=== PATIENT | male | born 1945 | race Caucasian/White ===

== ENCOUNTER 2023-01-13 14:21 | Outpatient (RCR) | payer MEDICARE, SELFPAY | END 2023-01-31 11:49 | disposition home or self-care (01) | LOC: RPT 14:21 | PROVIDERS: ATTENDING PHYSICIAN Neurological Surgery; FAMILY PHYSICIAN Family Medicine | DX: M48.061 Spinal stenosis, lumbar region without neurogenic claudication (principal); M41.86 Other forms of scoliosis, lumbar region | CPT/HCPCS: 97110; 97112 ==

== ENCOUNTER 2023-03-06 13:08 | Emergency (ER) | payer MEDICARE, SELFPAY ==
[2023-03-06 13:11] VITALS: BP 179/76
[2023-03-06 13:12] VITALS: BP 179/76
[2023-03-06 13:12] LABS: Glucose - Point of Care 84 mg/dl (70-99)
[2023-03-06 13:24] LABS: % Basophils 0.5 % (0-2); % Eosinophils 0.4 % (0-6); % Immature Granulocytes 0.9 % (0-0.5); % Lymphocytes 7.5 % (20.5-51.1); % Monocytes 13.3 % (1.7-9.3); % Neutrophils 77.4 % (42.2-75.2); Absolute Basophils 0.1 10^3/uL (0-0.2); Absolute Immature Granulocytes 0.1 10^3/uL (0-0.05); Absolute Lymphocytes 0.7 10^3/uL (1.2-3.4); Absolute Monocytes 1.2 10^3/uL (0.1-0.6); Absolute Neutrophils 7.1 10^3/uL (1.4-6.5); Hematocrit 38.3 % (39.0-52.0); Hemoglobin 13.2 g/dL (13.0-18.0); Mean Corp Hgb Conc. 34.5 g/dL (33.0-37.0); Mean Corpuscular Hgb 34.3 pg (27.0-31.0); Mean Corpuscular Volume 99.5 fL (80.0-94.0); Mean Platelet Volume 8.9 fL (7.4-10.4); Nucleated Red Blood Cells % 0 % (-); Platelet Count 219 10^3/uL (130-400); Red Blood Cell Count 3.85 10^6/uL (4.70-6.10); White Blood Cell Count 9.1 10^3/uL (4.8-10.8)
[2023-03-06 13:29] LABS: Glucose - Point of Care 74 mg/dl (70-99)
[2023-03-06 13:37] LABS: Glucose - Point of Care 54 mg/dl (70-99)
[2023-03-06] MEDS: D10W 1000 IV ×2 (13:39→16:51)
--- NOTE | 2023-03-06 13:39 | ED.GENMED ---
History of Present Illness
General
Chief Complaint: Blood Sugar Problem
Source: patient and spouse
Time Seen by Provider: 03/06/23 13:28
Travel History
Have you had any contact with someone who has COVID-19?: No
Do you have any symptoms of coronavirus? Fever > 100 degrees, chills, cough, shortness of breath, sore throat, loss of taste or smell, muscle aches, or headache?: No
History of Present Illness
History of Present Illness:
77-year-old male presents to the emergency room complaining of hypoglycemia. Patient change the insulin cartridge in his insulin pump. He followed up directions to a T except for the fact that the needle of the insulin pump was attached to his
abdomen and he therefore received what ever volume of insulin is involved in the priming process. Patient went to a pain management doctor's appointment and while there became symptomatic. His continuous glucose monitor would not machine pecan picker his
glucose level. Accu-Cheks performed by paramedics were in the 40s. Patient consumed several high glucose containing items as well as receiving 30 grams of oral glucose solution 25 g of IV dextrose. Patient feels better now than he did when he was
at his doctor's office. prior to this misadventure he was feeling fine.
Past History
Past History
ED Past Medical History: HTN, IDDM, Other (2006: Spinal cord injury, fall during hypoglycemic episode, fracture C spine, paralyzed for short time, had to learn to walk again. Vitrectomy, kidney disease, hepatitis,) and Other (Hernia,)
ED Past Surgical History: Other (hand surgery, c spine fusion, lumbar laminectomy)
Social History
Tobacco: Former smoker
Alcohol: Daily ( wine 1 glass and Martini 1 glass)
Drug: None
Personal:
Living: with family
Phy Exam
Physical Exam
Physical Exam:
General: Awake, Alert, Oriented X3. No acute distress.
Vitals: unremarkable
Head: Atraumatic
Eyes: Pupils equal, EOMI
Throat: Airway intact, no exudates
Neck: Trachea midline
Lungs: Clear and equal b/l
Heart: Regular rate, no murmurs
Abd: Soft, Nontender, No pulsatile mass
Neuro: Nonfocal
Skin: Warm, dry, no rash
Extremities: pulses equal b/l, no edema
Course
Orders/Labs/Results
Orders:
Orders
03/06/23 13:18
CMP [Comprehensive Metabolic Panel] Urgent
Complete Blood Count/With Diff Urgent
03/06/23 14:00
Dextrose 10%/Water 1000 ml [D10w] 1,000 ml IV 200 mls/hr
Abnormal Lab Results
03/06/23 03/06/23 03/06/23
13:18 13:36 14:16
RBC 3.85 L 10^6/uL
(4.70-6.10)
Hct 38.3 L %
(39.0-52.0)
MCV 99.5 H fL
(80.0-94.0)
MCH 34.3 H pg
(27.0-31.0)
Abs Immat Gran (auto) 0.1 H 10^3/uL
(0-0.05)
Absolute Neuts (auto) 7.1 H 10^3/uL
(1.4-6.5)
Absolute Lymphs (auto) 0.7 L 10^3/uL
(1.2-3.4)
Absolute Monos (auto) 1.2 H 10^3/uL
(0.1-0.6)
Immature Gran % 0.9 H %
(0-0.5)
Neutrophils % 77.4 H %
(42.2-75.2)
Lymphocytes % 7.5 L %
(20.5-51.1)
Monocytes % 13.3 H %
(1.7-9.3)
BUN 60 H mg/dl
(9-20)
Creatinine 1.7 H mg/dL
(0.7-1.3)
POC Glucose 54 L* mg/dl 149 H mg/dl
() ()
03/06/23 03/06/23 03/06/23
14:50 15:25 16:10
RBC
Hct
MCV
MCH
Abs Immat Gran (auto)
Absolute Neuts (auto)
Absolute Lymphs (auto)
Absolute Monos (auto)
Immature Gran %
Neutrophils %
Lymphocytes %
Monocytes %
BUN
Creatinine
POC Glucose 51 L* mg/dl 113 H mg/dl 130 H mg/dl
() () ()
03/06/23 13:18
03/06/23 13:18
Vital Signs
Initial and Last Documented VS:
Initial Vital Signs
Temp Pulse Resp BP Pulse Ox
98.4 F 89 13 179/76 100
03/06/23 13:11 03/06/23 13:11 03/06/23 13:11 03/06/23 13:11 03/06/23 13:11
Last Documented Vital Signs
Temp Pulse Resp BP Pulse Ox
98.4 F 107 24 180/101 98
03/06/23 13:11 03/06/23 16:30 03/06/23 16:30 03/06/23 14:00 03/06/23 14:45
MDM/Problems Addressed
MDM/Problems Addressed:
Initial [id number] glucose was 84 followed by 7415 minutes later followed by 54. Dextrose infusion initiated. Next 2 glucose measurements were fine but at 1450 he again was 51. Bolus of D10 given.
1623: Nursing informed me pt feels he should restart his insulin pump because his blood sugar is up to 130mg (1610). Measurement at 1525 was 113. I entered patient room and he was immediately agitated stating ' You have wasted by fucking time'.
I attempted to explain the thought process behind holding his insulin for a period of time and assuring his glucose is stable prior to restarting insulin pump. However prior to finishing my explanation pt cut me off to tell me 'I don't known what's
going on here and neither do you'.....'you don't know a fucking thing about diabetes'. At this point I stepped away from the room and pt wants to sign out AMA.
I was able to discuss the patient's status with his . She explained that the patient had severe DKA in the past resulting in some kidney injury. The patient is very afraid of having another episode such as this so he becomes nervous when his
glucose is elevated. She is on her way back to the emergency room and will monitor him closely at home.
*Critical Care Note
Total Time (30-74mins, 75-104mins- exclusive of procedures): Not Applicable
ED Attending Note
-
Portions of this chart may have been created with voice recognition software.� Occasional wrong word or��sound alike� substitutions may have occurred due to the inherent limitations of voice recognition software.
Discharge Plan
Departure
Presentation/result/management discussed w/ accepting MD/DO: Hospitalist
Condition: Good
Discharge Problem:
Accidental overdose of insulin, Hypoglycemia
Instructions: BLOOD PRESSURE
Prescriptions:
No Action
fluticasone propionate 1 SPRAY spray,suspension
1 spray intranasal DAILY
atorvastatin 10 MG tablet
10 mg PO DAILY
verapamil 120 MG tablet extended release
120 mg PO BID
albuterol sulfate 1 PUFF HFA aerosol inhaler
2 puff inhalation R Q4HPRN PRN (Reason: SOB)
pregabalin 75 MG capsule
75 mg PO HS
Insulin Pump [Patient's Own Insulin Pump:] 1 UNITS Pump.Resvr
0 ea SC .CONTINUOUS
Patient Comments:
PT USES humalog
aspirin 81 MG tablet,chewable
81 mg PO DAILY 30 Days Qty: 30 0RF
furosemide [Lasix] 20 MG tablet
20 mg PO DAILY 30 Days Qty: 30 0RF
irbesartan 300 MG tablet
150 mg PO BID Qty: 0 0RF
tramadol 50 mg tablet
50 mg PO TIDPRN PRN (Reason: severe pains)
Referrals:
Finesse Mccullough DO [Family Provider] -
Activity Restrictions/Additional Instructions:
I would notresume your normal insulin pump protocol until you have eaten dinner. Please return if you have any further episodes of hypoglycemia
Interventions
Interventions:
*Risk Screen - Suicide Last Done: 03/06/23 13:11
*General Assessment Last Done: 03/06/23 13:11
*Neglect/Abuse Screening Last Done: 03/06/23 13:11
ED- Fall Risk Assessment Last Done: 03/06/23 13:11
*ED COVID-19 Vaccine History Last Done: 03/06/23 13:11
ED- Neurological Assessment Last Done: 03/06/23 13:11
[2023-03-06 13:50] LABS: ALT (SGPT) 24 U/L (0-50); AST (SGOT) 22 U/L (17-59); Albumin 3.8 g/dl (3.5-5.0); Alkaline Phosphatase 68 U/L (38-126); Blood Urea Nitrogen 60 mg/dl (9-20); Calcium 9.8 mg/dl (8.4-10.2); Carbon Dioxide 22 mmol/L (22-30); Chloride 103 mmol/L (98-107); Glucose 95 mg/dl (70-99); Potassium 4.1 mmol/L (3.5-5.1); Sodium 135 mmol/L (135-145); Total Bilirubin 0.6 mg/dl (0.2-1.3); Total Protein 6.4 g/dl (6.3-8.2); eGFR 41.01
[2023-03-06 13:53] LABS: Glucose - Point of Care 74 mg/dl (70-99)
[2023-03-06 14:00] VITALS: BP 180/101
[2023-03-06 14:17] LABS: Glucose - Point of Care 149 mg/dl (70-99)
[2023-03-06 14:56] LABS: Glucose - Point of Care 51 mg/dl (70-99)
[2023-03-06 15:26] LABS: Glucose - Point of Care 113 mg/dl (70-99)
[2023-03-06 16:22] LABS: Glucose - Point of Care 130 mg/dl (70-99)
[2023-03-06 16:59] LABS: Glucose - Point of Care 104 mg/dl (70-99)
== END 2023-03-06 17:20 | disposition home or self-care (01) ==
LOC: EMR 13:08
PROVIDERS: Student in an Organized Health Care Education/Training Program; EMERGENCY PHYSICIAN Emergency Medicine; FAMILY PHYSICIAN Family Medicine
DX: T38.3X1A Poisoning by insulin and oral hypoglycemic [antidiabetic] drugs, accidental (unintentional), initial encounter (principal); E11.649 Type 2 diabetes mellitus with hypoglycemia without coma; I10 Essential (primary) hypertension; Z87.891 Personal history of nicotine dependence
CPT/HCPCS: 99284; 96374; 80053; 82962; 85025

== ENCOUNTER → 2023-04-24 14:44 | Outpatient (REF) | payer MEDICARE, SELFPAY | LOC: DHCBC MAIN 14:44 | PROVIDERS: ATTENDING PHYSICIAN Internal Medicine; FAMILY PHYSICIAN Family Medicine | DX: I10 Essential (primary) hypertension (principal); R06.09 Other forms of dyspnea; I44.0 Atrioventricular block, first degree | CPT/HCPCS: 93306 ==

== ENCOUNTER → 2023-10-20 15:51 | Outpatient (REF) | payer MEDICARE, SELFPAY | LOC: HWRCS 15:51 | PROVIDERS: ATTENDING PHYSICIAN Nurse Practitioner Family | DX: R06.02 Shortness of breath (principal) | CPT/HCPCS: 93306 ==

== ENCOUNTER 2024-02-20 15:31 | Inpatient (IN) | payer MEDICARE, SELFPAY ==
[2024-02-20 12:19] VITALS: BMI 24.8
[2024-02-20 12:22] VITALS: BP 122/63
--- NOTE | 2024-02-20 12:31 | ED.GENMED ---
History of Present Illness
<Mich Leiva MD, Resident - Last Filed: 02/20/24 14:33>
General
Chief Complaint: Fainting Sensation
Source: patient and spouse
Time Seen by Provider: 02/20/24 12:31
Nursing documentation reviewed up to this point in time: agreed with
Travel History
Have you traveled to any high risk areas for coronavirus over the past 14 days?: No
Have you had any contact with someone who has COVID-19?: No
Do you have any symptoms of coronavirus? Fever > 100 degrees, chills, cough, shortness of breath, sore throat, loss of taste or smell, muscle aches, or headache?: No
History of Present Illness
History of Present Illness:
78-year-old male with PMH of type 1 diabetes, CKD stage IV, hypertension, hyperlipidemia, prostate cancer who came to the ED today with weakness, fainting sensations and worsening shortness of breath. Patient describes SOB has been worsening for
the past 3 months. This morning, patient was not able to walk and had to present himself in a bench. He follows with Dr. Hess and his last echo reported preserved EF with mild aortic regurgitation. Patient also has a history of recurrent
hypoglycemic episodes and uses an insulin pump. When the EMS arrived, patient's serum glucose level was 182 mg/dL per patient's . He denies any leg swelling, chest pain, fever or chills.
Past History
<Mich Leiva MD, Resident - Last Filed: 02/20/24 14:33>
Past History
ED Past Medical History: HTN, IDDM, Other (2006: Spinal cord injury, fall during hypoglycemic episode, fracture C spine, paralyzed for short time, had to learn to walk again. Vitrectomy, kidney disease, hepatitis,) and Other (Hernia,)
ED Past Surgical History: Other (hand surgery, c spine fusion, lumbar laminectomy)
Social History
Tobacco: Former smoker
Alcohol: Daily ( wine 1 glass and Martini 1 glass)
Drug: None
Personal:
Living: with family
Review of Systems
<Mich Leiva MD, Resident - Last Filed: 02/20/24 14:33>
Review of Systems
All Other Systems: ROS reviewed and negative except as documented in HPI and ROS
Phy Exam
<Mich Leiva MD, Resident - Last Filed: 02/20/24 14:33>
General Physical Exam
General Presentation: well appearing and no apparent distress
General age: appears stated age
General Skin: warm and dry
General Habitus: normal
General Mental: alert
General Hydration: dry mucous membranes
Cardiovascular Exam
Cardiovascular Exam: no edema, no gallop, no murmur, normal peripheral pulses and irregularly irregular
Pulmonary Exam
Pulmonary Exam: lungs clear, no respiratory distress, no rales, no crackles and no rhonchi
Neurological Exam
Neurological Exam: alert, oriented x3 and CN II-XII intact
Skin Exam
Skin Exam: normal color, warm/dry and no rash
Psychiatric Exam
Psychiatric Exam: normal mood/affect
Scores
<Mich Leiva MD, Resident - Last Filed: 02/20/24 14:33>
[id number] Score for Afib Stroke Risk
Age in Years (65=0, 65-74=1, >/=75=2): > or = 75
Sex (Female=+1): Male
Congestive Heart Failure History (Yes=+1): Yes
Hypertension History (Yes=+1): Yes
Stroke/TIA/Thromboembolism History (Yes=+2): No
Vascular Disease History (Yes=+1): No
Diabetes Mellitus (Yes=+1): Yes
Score: 5
Anticoagulation Recommendations: Recommend anticoagulation (as validated in nonvalvular fib)
Course
<Mich Johnnie Leiva MD, Resident - Last Filed: 02/20/24 14:33>
Orders/Labs/Results
Orders:
Orders
02/20/24 12:17
EKG [Electrocardiogram (*1)] Urgent
Reason for Study: Syncope
EKG- Treatment ONCE
02/20/24 12:27
CMP [Comprehensive Metabolic Panel] Urgent
Complete Blood Count/With Diff Urgent
02/20/24 13:13
Sodium Zirconium Cyclosilicate [Lokelma] 10 gram PO NOW STA
02/20/24 13:17
CXR2 [CR Chest - 2 Views ] Stat
Comment:
Reason For Exam: Shortness of breath
02/20/24 13:29
Add On- LAB Urgent
Tests Added?: troponin, bnp
02/20/24 13:33
NT-proBNP Urgent
Troponin I Urgent
Abnormal Lab Results
02/20/24
12:27
RBC 4.03 L 10^6/uL
(4.70-6.10)
MCV 100.2 H fL
(80.0-94.0)
MCH 33.7 H pg
(27.0-31.0)
Abs Immat Gran (auto) 0.1 H 10^3/uL
(0-0.05)
Absolute Neuts (auto) 6.9 H 10^3/uL
(1.4-6.5)
Absolute Monos (auto) 0.8 H 10^3/uL
(0.1-0.6)
Lymphocytes % 13.6 L %
(20.5-51.1)
Potassium 5.7 H mmol/L
(3.5-5.1)
Carbon Dioxide 21 L mmol/L
(22-30)
BUN 57 H mg/dl
(9-20)
Creatinine 2.4 H mg/dL
(0.7-1.3)
Glucose 190 H mg/dl
(70-99)
02/20/24 12:27
02/20/24 12:27
Vital Signs
Initial and Last Documented VS:
Initial Vital Signs
Temp Pulse Resp Pulse Ox
98.2 F 69 15 98
02/20/24 12:19 02/20/24 12:19 02/20/24 12:19 02/20/24 12:19
Last Documented Vital Signs
Temp Pulse Resp BP Pulse Ox
98.2 F 73 8 122/63 90
02/20/24 12:19 02/20/24 12:23 02/20/24 12:23 02/20/24 12:22 02/20/24 12:23
<Jamel Reynoso, DO - Last Filed: 02/20/24 14:20>
Orders/Labs/Results
Orders:
Orders
02/20/24 12:17
EKG [Electrocardiogram (*1)] Urgent
Reason for Study: Syncope
EKG- Treatment ONCE
02/20/24 12:27
CMP [Comprehensive Metabolic Panel] Urgent
Complete Blood Count/With Diff Urgent
02/20/24 13:13
Sodium Zirconium Cyclosilicate [Lokelma] 10 gram PO NOW STA
02/20/24 13:17
CXR2 [CR Chest - 2 Views ] Stat
Comment:
Reason For Exam: Shortness of breath
02/20/24 13:29
Add On- LAB Urgent
Tests Added?: troponin, bnp
02/20/24 13:33
NT-proBNP Urgent
Troponin I Urgent
Abnormal Lab Results
02/20/24
12:27
RBC 4.03 L 10^6/uL
(4.70-6.10)
MCV 100.2 H fL
(80.0-94.0)
MCH 33.7 H pg
(27.0-31.0)
Abs Immat Gran (auto) 0.1 H 10^3/uL
(0-0.05)
Absolute Neuts (auto) 6.9 H 10^3/uL
(1.4-6.5)
Absolute Monos (auto) 0.8 H 10^3/uL
(0.1-0.6)
Lymphocytes % 13.6 L %
(20.5-51.1)
Potassium 5.7 H mmol/L
(3.5-5.1)
Carbon Dioxide 21 L mmol/L
(22-30)
BUN 57 H mg/dl
(9-20)
Creatinine 2.4 H mg/dL
(0.7-1.3)
Glucose 190 H mg/dl
(70-99)
02/20/24 12:27
02/20/24 12:27
Vital Signs
Initial and Last Documented VS:
Initial Vital Signs
Temp Pulse Resp Pulse Ox
98.2 F 69 15 98
02/20/24 12:19 02/20/24 12:19 02/20/24 12:19 02/20/24 12:19
Last Documented Vital Signs
Temp Pulse Resp BP Pulse Ox
98.2 F 73 8 122/63 90
02/20/24 12:19 02/20/24 12:23 02/20/24 12:23 02/20/24 12:22 02/20/24 12:23
<Mich Johnnie Leiva MD, Resident - Last Filed: 02/20/24 14:33>
MDM/Problems Addressed
Differential Diagnosis Includes:
HFpEF, A-fib
MDM/Problems Addressed:
78-year-old male with PMH of type 1 diabetes mellitus, CKD stage IV, hypertension, hyperlipidemia who presented to the emergency department today with worsening shortness of breath. While in the ED, his blood pressure was 122/63, pulse 69,
respiratory 15, he is afebrile and saturating at 98% on room air. His troponin was normal, with a proBNP of 260. His BMP showed potassium level of 5.7, creatinine 2.4 which is around his baseline, and serum glucose of 190.
Chronic conditions affecting care: DM
<Mich Leiva MD, Resident - Last Filed: 02/20/24 14:33>
*Critical Care Note
Total Time (30-74mins, 75-104mins- exclusive of procedures): Not Applicable
<Mich Leiva MD, Resident - Last Filed: 02/20/24 14:33>
Update Note
Update Note:
His EKG was remarkable for new onset A-fib with complex progression pacemaker. A-fib is new and not seen on previous EKG done on 06/08/2021.
Give Lokelma for hyperkalemia.
[id number] score 5
Will get a CXR, and admit patient to the hospitalist service for new onset A-fib, ED on CKD stage IV, and HFpEF.
Discussed with admitting hospitalist team.
ED Attending Note
<Mich Leiva MD, Resident - Last Filed: 02/20/24 14:33>
-
Portions of this chart may have been created with voice recognition software.� Occasional wrong word or��sound alike� substitutions may have occurred due to the inherent limitations of voice recognition software.
<Jamel Reynoso, - Last Filed: 02/20/24 14:20>
ED Attending Note
Patient seen and examined by attending physician: Yes
I performed a history and physical exam of patient and discussed management with resident, I reviewed resident's note and agree with documented findings and plan of care.: Yes
ED Attending Note:
I have reviewed and agree with history treatment plan by Mich Leiva MD. My exam revealed 78-year-old male no acute distress, irregular heart beat. Patient with new onset atrial fibrillation, acute renal failure and hyperkalemia. Admit to
hospitalist.
Discharge Plan
Departure
Patient Disposition: Admit
Date of Disposition: 02/20/24
Time of Disposition:
Presentation/result/management discussed w/ accepting MD/DO: Hospitalist
Patient with high blood pressure during this ER visit?: No
Condition: Fair
Covid-19: Not Applicable
Discharge Problem:
Type 1 diabetes mellitus with nephropathy, Hyperkalemia, Chronic kidney disease (CKD), stage IV (severe), A-fib, (HFpEF) heart failure with preserved ejection fraction
Prescriptions:
No Action
fluticasone propionate 1 SPRAY spray,suspension
1 spray intranasal DAILY
atorvastatin 10 MG tablet
10 mg PO DAILY
verapamil 120 MG tablet extended release
120 mg PO BID
albuterol sulfate 1 PUFF HFA aerosol inhaler
2 puff inhalation R Q4HPRN PRN (Reason: SOB)
pregabalin 75 MG capsule
75 mg PO HS
Insulin Pump [Patient's Own Insulin Pump:] 1 UNITS Pump.Resvr
0 ea SC .CONTINUOUS
Patient Comments:
PT USES humalog
aspirin 81 MG tablet,chewable
81 mg PO DAILY 30 Days Qty: 30 0RF
furosemide [Lasix] 20 MG tablet
20 mg PO DAILY 30 Days Qty: 30 0RF
irbesartan 300 MG tablet
150 mg PO BID Qty: 0 0RF
tramadol 50 mg tablet
50 mg PO TIDPRN PRN (Reason: severe pains)
Referrals:
Finesse Mccullough DO [Family Provider] -
Interventions
Interventions:
*Risk Screen - Suicide Last Done: 02/20/24 12:42
*General Assessment Last Done: 02/20/24 12:19
*Neglect/Abuse Screening Last Done: 02/20/24 12:19
ED- Fall Risk Assessment Last Done: 02/20/24 12:42
*ED COVID-19 Vaccine History Last Done: 02/20/24 12:19
ED- Cardiac Assessment Last Done: 02/20/24 12:42
ED- Neurological Assessment Last Done: 02/20/24 12:42
Discharge Date and Time
Print Language: GREEK
[2024-02-20 12:45] LABS: % Basophils 0.7 % (0-2); % Eosinophils 1.8 % (0-6); % Immature Granulocytes 0.5 % (0-0.5); % Lymphocytes 13.6 % (20.5-51.1); % Monocytes 8.5 % (1.7-9.3); % Neutrophils 74.9 % (42.2-75.2); Absolute Basophils 0.1 10^3/uL (0-0.2); Absolute Eosinophils 0.2 10^3/uL (0-0.7); Absolute Immature Granulocytes 0.1 10^3/uL (0-0.05); Absolute Lymphocytes 1.3 10^3/uL (1.2-3.4); Absolute Monocytes 0.8 10^3/uL (0.1-0.6); Absolute Neutrophils 6.9 10^3/uL (1.4-6.5); Hematocrit 40.4 % (39.0-52.0); Hemoglobin 13.6 g/dL (13.0-18.0); Mean Corp Hgb Conc. 33.7 g/dL (33.0-37.0); Mean Corpuscular Hgb 33.7 pg (27.0-31.0); Mean Corpuscular Volume 100.2 fL (80.0-94.0); Mean Platelet Volume 9.3 fL (7.4-10.4); Nucleated Red Blood Cells % 0 % (-); Platelet Count 213 10^3/uL (130-400); Red Blood Cell Count 4.03 10^6/uL (4.70-6.10); Red Cell Dist. Width 13.3 % (11.5-14.5); White Blood Cell Count 9.2 10^3/uL (4.8-10.8)
[2024-02-20 12:57] LABS: ALT (SGPT) 19 U/L (0-50); AST (SGOT) 23 U/L (17-59); Albumin 4.7 g/dl (3.5-5.0); Alkaline Phosphatase 92 U/L (38-126); Blood Urea Nitrogen 57 mg/dl (9-20); Calcium 10.2 mg/dl (8.4-10.2); Carbon Dioxide 21 mmol/L (22-30); Chloride 98 mmol/L (98-107); Estimated Creatinine Clearance 25 ml/min; Glucose 190 mg/dl (70-99); Potassium 5.7 mmol/L (3.5-5.1); Sodium 137 mmol/L (135-145); Total Bilirubin 0.8 mg/dl (0.2-1.3); Total Protein 7.2 g/dl (6.3-8.2); eGFR 26.94
[2024-02-20 13:00] VITALS: BP 116/73
[2024-02-20] MEDS: LOKELMA 10 GRAM PO (13:47)
[2024-02-20 14:07] LABS: NT-proBNP 260 pg/ml; Troponin I < 0.012 ng/ml
--- NOTE | 2024-02-20 14:48 | HPS.HSE ---
Family Physician
-
Family Physician: Finesse Mccullough
Chief Complaint
-
Shortness of Breath and Episode of Rigidity
History of Present Illness
Patient is a 78 y/o male past medical history of type I diabetes mellitus, chronic HFpEF, CKD IV, hypertension and spinal stenosis who presents with shortness of breath and an unresponsive episode earlier today. Additional history is obtained from
patient's at the bedside. Patient notes he has been feeling short of breath for months, but notes it has been getting worse recently. Today patient got a shower than had to spend a long time recovering due to the shortness of breath. His
scheduled him an appointment with his PCP for later today due to the shortness of breath. Later in the morning patient was sitting on a bench. His heard him moan and when she went in to the room he appeared very rigid which lasted a few
seconds, followed by a second episode that lasted a few seconds. Patient was not as responsive during the event but did not appear confused afterwards. notes he complained about cramping in his hands yesterday which was very usual. Patient
denies any cough, chest pains, palpitations or lower extremity edema. He denies prior history of seizure.
Medical History
Past Medical History
Past Medical History: Reports Other
Additional Past Medical History:
Diabetes Mellitus, Type I
Nonobstructive Coronary Artery Disease
Chronic HFpEF
CKD Stage IV
Essential Hypertension
Hyperlipidemia
Spinal Stenosis
Peripheral Neuropathy
Prostate Cancer
Past Surgical History: Reports Other
Additional Past Surgical History:
C3-C4 Spinal Fusion
L1-L5 Laminectomy
Spinal Stimulator
Prostatectomy
Social History
Tobacco: Former Smoker
Alcohol: Occasional
Family History
Family History: Not pertinent
Allergies / Home Medications
Allergies reflects when Allergies were last updated in [employer]
Home Medications with original date entered in [employer]
Allergy/Medication List:
Allergies
Allergy/AdvReac Type Severity Reaction Status Date / Time
NANCY Inhibitors Allergy Angioedema Verified 06/08/21 17:24
bee pollen Allergy swelling, Verified 08/02/21 16:06
anaphylaxis
bee venom protein (honey bee) Allergy swelling, Verified 08/02/21 16:06
anaphylaxis
ciprofloxacin Allergy Hives Verified 06/08/21 17:24
naproxen [From Aleve] Allergy d/t kidney Verified 06/08/21 17:24
disease
Penicillins Allergy Anaphylaxis; Verified 06/08/21 17:24
tolerated
cefepime &
meropenem
Home Medications
atorvastatin 10 mg tablet 10 mg PO DAILY High cholesterol 01/18/18
Insulin Pump [Patient's Own Insulin Pump:] 0 ea SC .CONTINUOUS Diabetes 06/08/21
albuterol sulfate 90 mcg/actuation aerosol inhaler 2 puff inhalation R Q4HPRN PRN SOB 06/08/21
aspirin 81 mg chewable tablet 81 mg PO DAILY 30 days #30 tabs 06/10/21
irbesartan 300 mg tablet 150 mg (1/2 x 300 mg) PO BID Blood pressure ##0 06/10/21
tramadol 50 mg tablet 50 mg PO TIDPRN PRN severe pains 03/06/23
duloxetine 20 mg capsule,delayed release (Cymbalta) 20 mg PO DAILY 02/20/24
empagliflozin 10 mg tablet (Jardiance) 10 mg PO DAILY 02/20/24
furosemide 20 mg tablet (Lasix) 40 mg PO BID 02/20/24
verapamil 120 mg tablet,extended release 120 mg PO BID 02/20/24
Review of Systems
-
A 12 point ROS was completed and negative except as noted: Yes
Constitutional: Denies Fever or Chills
Respiratory: Reports Trouble Breathing; Denies Cough
Cardiac: Denies Chest Pain or Palpitations
Neurological: Denies Headache or Weakness
Physical Exam
Vital Signs
Vital Signs
Temp Pulse Resp BP Pulse Ox
98.2 F 73 8 122/63 90
02/20/24 12:19 02/20/24 12:23 02/20/24 12:23 02/20/24 12:22 02/20/24 12:23
Physical Exam
General: Comfortable and Conversant
HEENT: Anicteric and Moist mucous membranes
Respiratory: Clear and Non Labored Respirations
Cardiac: S1/S2 and Irregular Rhythm; No Tachycardia
GI: Soft and Non Tender
Rectal: Deferred by Provider
Musculoskeletal: No Clubbing, No Cyanosis and No Edema
Skin: Warm and Dry
Neuro: Awake, Alert, Oriented and Nonfocal/grossly intact
Psych: Calm
Laboratory Results
-
02/20/24 12:27
02/20/24 12:27
Laboratory Results
Total Bilirubin 0.8 mg/dl (0.2-1.3) 02/20/24 12:27
AST 23 U/L (17-59) 02/20/24 12:27
ALT 19 U/L (0-50) 02/20/24 12:27
Alkaline Phosphatase 92 U/L (38-126) 02/20/24 12:27
Troponin I < 0.012 ng/ml 02/20/24 13:33
Data Reviewed
-
Lab Data: Labs Reviewed by me
Impression/Plan
-
Episode of Rigidity, most likely related to Hyperkalemia
-Check Head CT to evaluate for possible stroke as cause given high risk in setting of a-fib - Patient is unable to have MRI due to spinal stimulator
-Monitor on Telemetry
-Monitor for recurrent episodes
Acute Hyperkalemia
-Patient given Lokelma in ED
-Hold irbesartan
-Recheck potassium later this evening
Atrial Fibrillation, new diagnosis - Currently rate controlled
-Consult Cardiology
-Hold on starting anticoagulation pending Head CT
-Continue verapamil for rate control
Chronic HFpEF - Appears well compensated
-Continue Lasix, and Jardiance
-Monitor Is&Os and Daily Weights
Nonobstructive Coronary Artery Disease
-Continue aspirin
Diabetes Mellitus, Type I
-Continue insulin pump
-Monitor sugars
CKD Stage IV
-Patient's notes most recent blood work at [facility] Cr was 2.4
-Continue to monitor creatinine
Essential Hypertension
-Irbesartan on hold due to hyperkalemia
-Continue verapamil
Hyperlipidemia
-Continue atorvastatin
Spinal Stenosis s/p Spinal Stimulator / Peripheral Neuropathy
-Continue Cymbalta
DVT proph: SCDs
Code Status: Full Code
--- NOTE | 2024-02-20 15:11 | W.PN.UPDATE ---
Update Note
Progress Note Update
This is an addendum to the H&P written by Nallely Norton on 02/20/2024. Patient seen and examined independently with PA.
78-year-old male past medical history of type 1 diabetes on insulin pump, diabetic neuropathy, CKD 4, CAD, HFpEF, hypertension, hyperlipidemia, prostate cancer, spinal cord injury of cervical spine, GERD, presenting with episode of body stiffness,
with diminished consciousness although he did not pass out. He is also been increasingly more short of breath over the past week. No edema. No recent hypoglycemia.
EKG shows new onset atrial fibrillation.
Labs show creatinine of 2.4, potassium of 5.7. Cardiac BNP of 260. Chest x-ray appears unremarkable, report pending.
Unclear cause of the episode of body stiffness diminished consciousness. Does not definitively seem like a seizure. He did have some muscle cramping in his hands so perhaps this is due to hyperkalemia. Will check CT head. He has thoracic spinal
stimulator so unlikely that this is MRI brain compatible.
Patient with chronic symptomatic new onset atrial fibrillation with controlled heart rate.
Patient given Lokelma for hyperkalemia. Hold irbesartan. Patient with [id number] score of 6. Cardiology consulted.
Creatinine has been stable over several years.
--- NOTE | 2024-02-20 16:41 | CON.CAR ---
Consultation
Consultation Request
Date/Time Consultation Requested: 02/20/24 15:00
Date/Time Consultation Performed: 02/20/24 16:30
Requesting Provider: RADHA Arreola
Performing Provider: Ja Devine MD
Reason for Consultation: afib
Medical History
-
Chief Complaint: atrial fibrillation
History of Present Illness:
78 yo male (known to Dr. Hess) with PMH of mild AR, HTN, hyperlipidemia, 1st degree AVB, chronic HFPEF, DM, CKD3b, spinal cord injury s/p stimulator�presents for shortness of breath and syncopal episode. He reports that for the past 3 weeks he has
been getting progressively short of breath. Today after getting out of the shower he felt profoundly fatigued. He was walking downstairs to get a cup of coffee when he collapsed onto a bench and was nonresponsive according to his . She called
EMS and when they arrived his blood pressure was 72/52. It improved on the way to the hospital and he now feels better. In the ER he was noted to be in rate controlled atrial fibrillation which is new for him. He has since spontaneously converted
to sinus rhythm. He is currently taking Lasix 40 mg every other day. He weighs himself daily at home and today was 163 pounds which is around his dry weight.
Past Medical History
Past Medical History: CHF, HTN, Hypercholesterolemia, IDDM, Renal Failure and Valvular Disease (Mild aortic regurgitation)
Social History
Tobacco: Non-Smoker
Family History
Family History: Reviewed & Not Pertinent
Allergies / Home Medications
Allergy/AdvReac Type Severity Reaction Status Date / Time
NANCY Inhibitors Allergy Angioedema Verified 06/08/21 17:24
bee pollen Allergy swelling, Verified 08/02/21 16:06
anaphylaxis
bee venom protein (honey bee) Allergy swelling, Verified 08/02/21 16:06
anaphylaxis
ciprofloxacin Allergy Hives Verified 06/08/21 17:24
naproxen [From Aleve] Allergy d/t kidney Verified 06/08/21 17:24
disease
Penicillins Allergy Anaphylaxis; Verified 06/08/21 17:24
tolerated
cefepime &
meropenem
�Medication �Instructions �Recorded �Confirmed �Type
atorvastatin 10 mg tablet 10 mg PO DAILY High cholesterol 01/18/18 02/20/24 History
Insulin Pump [Patient's Own 0 ea SC .CONTINUOUS Diabetes 06/08/21 02/20/24 History
Insulin Pump:]
albuterol sulfate 90 mcg/actuation 2 puff inhalation R Q4HPRN PRN SOB 06/08/21 02/20/24 History
aerosol inhaler
aspirin 81 mg chewable tablet 81 mg PO DAILY 30 days #30 tabs 06/10/21 02/20/24 Rx
irbesartan 300 mg tablet 150 mg (1/2 x 300 mg) PO BID Blood 06/10/21 02/20/24 Rx
pressure ##0
tramadol 50 mg tablet 50 mg PO TIDPRN PRN severe pains 03/06/23 02/20/24 History
duloxetine 20 mg capsule,delayed 20 mg PO DAILY 02/20/24 02/20/24 History
release (Cymbalta)
empagliflozin 10 mg tablet 10 mg PO DAILY 02/20/24 02/20/24 History
(Jardiance)
furosemide 20 mg tablet (Lasix) 40 mg PO BID 02/20/24 02/20/24 History
verapamil 120 mg tablet,extended 120 mg PO BID 02/20/24 02/20/24 History
release
Review of Systems
-
All other systems: Negative unless noted
Physical Exam
Vital Signs
Temp Pulse Resp BP Pulse Ox
98.2 F 86 22 116/73 99
02/20/24 12:19 02/20/24 16:30 02/20/24 16:30 02/20/24 13:00 02/20/24 16:30
Lab Results
02/20/24 12:27
Troponin I < 0.012 ng/ml 02/20/24 13:33
Zac-U-Yaisfowynbg Pept 260 pg/ml 02/20/24 13:33
Physical Exam
General: Well Developed and Well Nourished
Respiratory: Clear and Non Labored Respirations; Negative Crackles
Cardiac: S1/S2 and Regular Rhythm; Negative Murmur, Rub or Peripheral Edema
Neuro: AO x 3
Impression / Plan
-
78 yo male (known to Dr. Hess) with PMH of mild AR, HTN, hyperlipidemia, 1st degree AVB, chronic HFPEF, DM, CKD3b, spinal cord injury s/p stimulator�presents for shortness of breath and syncopal episode, found to have new paroxysmal atrial
fibrillation.
Paroxysmal atrial fibrillation
-New on admission. Now back in sinus rhythm after spontaneous conversion. No medications administered.
-[id number] 5
-Start apixaban 5 mg twice daily for anticoagulation. Will ask case management to matthews.
-No indication for rate/rhythm control at this time as he is back in sinus rhythm and was rate controlled even in atrial fibrillation. Can consider rhythm control strategy if A-fib recurs.
Shortness of breath
-Unclear etiology. He does not appear to be in a significant HFpEF exacerbation as he is at his dry weight, examines euvolemic, and NT proBNP is normal.
-Echocardiogram tomorrow
-Consider ischemic evaluation as he is a type I diabetic and is at high risk for CAD
Chronic HFpEF
-Appears euvolemic and at dry weight
-Continue p.o. Lasix 40 mg every other day and SGLT2 inhibitor
Hypertension
-Continue home regimen with irbesartan and verapamil
Hyperlipidemia: Continue atorvastatin
Type 1 diabetes: Management per primary team
Data Reviewed
-
EKG: Tracing Personally Visualized and interpreted, Discussed with Physician and Discussed with Patient
Radiology: Image Personally Visualized and interpreted, Discussed with Physician and Discussed with Patient
Medical Tests (Nuc Med, Echo etc): Report Reviewed by me
Labs: Labs Reviewed by me
Old Records: Reviewed
[2024-02-20 20:43] VITALS: BP 179/86
[2024-02-20] MEDS: CALAN EXTENDED RELEASE 120 MG PO (21:12)
[2024-02-20] MEDS: ELIQUIS 5 MG PO (21:12)
[2024-02-20 21:31] LABS: Glucose - Point of Care 127 mg/dl (70-99)
[2024-02-20 22:01] VITALS: BMI 24.7
[2024-02-20 22:29] LABS: Potassium 3.9 mmol/L (3.5-5.1)
[2024-02-21 00:23] VITALS: BP 158/70
[2024-02-21 03:30] VITALS: BP 153/61
[2024-02-21 06:24] VITALS: BMI 24.8
--- NOTE | 2024-02-21 06:30 | PTCARENOTE ---
Pt admitted from ED, AAOx3. No c/o pain. Pt afebrile, VSS. Pt arrived with pt's own insulin pump. Pt oriented to room. SCDs in place. Call castellanos within reach and bed in lowest position. Discussed plan with patient. Repeat potassium collected,
per MD order.
[2024-02-21 06:46] LABS: Hematocrit 37.2 % (39.0-52.0); Hemoglobin 12.6 g/dL (13.0-18.0); Mean Corp Hgb Conc. 33.9 g/dL (33.0-37.0); Mean Corpuscular Hgb 33.7 pg (27.0-31.0); Mean Corpuscular Volume 99.5 fL (80.0-94.0); Mean Platelet Volume 9.6 fL (7.4-10.4); Platelet Count 214 10^3/uL (130-400); Red Blood Cell Count 3.74 10^6/uL (4.70-6.10); Red Cell Dist. Width 13.4 % (11.5-14.5); White Blood Cell Count 5.6 10^3/uL (4.8-10.8)
[2024-02-21 06:58] LABS: Blood Urea Nitrogen 59 mg/dl (9-20); Calcium 9.6 mg/dl (8.4-10.2); Carbon Dioxide 28 mmol/L (22-30); Chloride 97 mmol/L (98-107); Estimated Creatinine Clearance 26 ml/min; Glucose 120 mg/dl (70-99); Potassium 4.3 mmol/L (3.5-5.1); Sodium 136 mmol/L (135-145); eGFR 28.35
[2024-02-21] MEDS: FARXIGA 10 MG PO (07:45)
[2024-02-21] MEDS: CALAN EXTENDED RELEASE 120 MG PO (07:45)
[2024-02-21] MEDS: CYMBALTA DELAYED RELEASE 20 MG PO (07:49)
[2024-02-21] MEDS: LOW STRENGTH ASPIRIN 81 MG PO (07:49)
[2024-02-21] MEDS: ELIQUIS 5 MG PO (07:49)
[2024-02-21] MEDS: LIPITOR 10 MG PO (07:49)
[2024-02-21 07:54] VITALS: BMI 24.8
[2024-02-21 08:07] VITALS: BP 149/74
[2024-02-21 08:58] LABS: Glycohemoglobin (HgbA1c) 6.4 % (4.0-5.6)
--- NOTE | 2024-02-21 09:40 | CM ---
Received consult to matthews medication-Apixaban 5mg BID, 3- days. Spoke with a pharmacist, named Perry, at [facility] who stated that the cost would be, $47 a month. Will relay to attending.
--- NOTE | 2024-02-21 09:42 | W.PN.CD ---
Today's Communication / Plan
-
-Started on apixaban 5 mg twice daily for anticoagulation.
-Echocardiogram today.
-Outpatient stress test if echocardiogram shows no significant abnormalities.
-If echocardiogram unremarkable, will arrange outpatient heart monitor.
Impression / Plan
-
78 yo male (known to Dr. Hess) with PMH of mild AR, HTN, hyperlipidemia, 1st degree AVB, chronic HFPEF, DM, CKD3b, spinal cord injury s/p stimulator�presents for shortness of breath and syncopal episode, found to have new onset paroxysmal atrial
fibrillation.
Paroxysmal atrial fibrillation
-New on admission. Now back in sinus rhythm after spontaneous conversion. No medications administered.
-[id number] 5
-Started on apixaban 5 mg twice daily for anticoagulation.
-No indication for rate/rhythm control at this time as he is back in sinus rhythm and was rate-controlled even in atrial fibrillation. Can consider rhythm control strategy if A-fib recurs.
Shortness of breath
-Unclear etiology. He does not appear to be in a significant HFpEF exacerbation as he is at his dry weight, examines euvolemic, and NT proBNP is normal.
-Echocardiogram today.
-Consider ischemic evaluation as he is a type I diabetic and is at high risk for CAD; outpatient stress test if echocardiogram shows no significant abnormalities.
Syncope
-Etiology unclear.
-If echocardiogram unremarkable, will arrange outpatient heart monitor.
Chronic HFpEF
-Appears euvolemic and at dry weight
-Continue p.o. Lasix 40 mg every other day and SGLT2 inhibitor
Hypertension
-Continue home regimen with irbesartan and verapamil
Hyperlipidemia: Continue atorvastatin
Type 1 diabetes: Management per primary team
Physical Exam
Vital Signs/Labs
Vital Signs
Temp Pulse Resp BP Pulse Ox
98 F 76 16 149/74 96
02/21/24 08:07 02/21/24 08:07 02/21/24 08:07 02/21/24 08:07 02/21/24 08:07
02/20/24 02/21/24 02/22/24
06:59 06:59 06:59
Actual Weight 76.113 kg
02/21/24 05:38
02/21/24 05:38
02/20/24
13:33
Jtj-W-Sjlebwcbetw Pept 260
LAB Results
02/20/24
13:33
Troponin I < 0.012
Physical Exam
Constitutional: No acute distress and Comfortable
EENT: Anicteric
Cardiovascular: Rhythm & rate is regular, Pedal edema is absent, Systolic murmur absent and S1S2 is normal
Respiratory: Respiratory effort normal and Lungs clear to auscul.
GI: Soft
Neuro/Psych: AO x 3
Other: Skin (Warm, dry, intact)
Data Reviewed
-
Date of Service: February 21, 2024
EKG: Report Reviewed by me (Telemetry: Sinus rhythm)
Labs: Labs Reviewed by me
--- NOTE | 2024-02-21 12:23 | W.PN.HOSP.TC ---
Addendum entered and electronically signed by Aditya Dueñas MD 02/21/24 13:20:
Echocardiogram without any valvular disease. Discussed with cardiology and will discharge patient home. Instructed patient to get thyroid test outpatient.
Time of discharge 36-minutes
Original Note:
Today's Communication/Plan
-
Monitor vital signs see plan
Continue with Eliquis
Echocardiogram today
Restart irbesartan
Assessment / Plan
Assessment / Plan
General: Comfortable and Conversant
HEENT: Anicteric and Moist mucous membranes
Respiratory: Clear and Non Labored Respirations
Cardiac: S1/S2 and regular Rhythm; No Tachycardia
GI: Soft and Non Tender
Musculoskeletal: No Edema
Neuro: Awake, Alert, Oriented and Nonfocal/grossly intact
Psych: Calm
Episode of Rigidity, most likely related to Hyperkalemia
-Check Head CT to evaluate for possible stroke as cause given high risk in setting of a-fib - Patient is unable to have MRI due to spinal stimulator. CT head negative for acute CVA
-Monitor on Telemetry
-Monitor for recurrent episodes, currently resolved
Acute Hyperkalemia
-Patient given Lokelma in ED
Restart irbesartan
Now improved
Atrial Fibrillation, new diagnosis - Currently rate controlled
Cardiology following, [id number] 5. Started on Eliquis
Now in normal sinus rhythm, echocardiogram today
-Continue verapamil for rate control
Chronic HFpEF - Appears well compensated
-Continue Lasix, and Jardiance
-Monitor Is&Os and Daily Weights
Nonobstructive Coronary Artery Disease
-Continue aspirin
Diabetes Mellitus, Type I
-Continue insulin pump
-Monitor sugars
A1c 6.4
CKD Stage IV
-Patient's notes most recent blood work at [facility] Cr was 2.4
-Continue to monitor creatinine
Per patient around 2.4 is his baseline. He does follow-up with brake specialist at [facility]
Essential Hypertension
-Irbesartan on hold due to hyperkalemia
-Continue verapamil
Hyperlipidemia
-Continue atorvastatin
Spinal Stenosis s/p Spinal Stimulator / Peripheral Neuropathy
-Continue Cymbalta
DVT proph: SCDs
Code Status: Full Code
Anticipated Discharge: Within 24 hours
Subjective/Interval History
-
Date of Service: February 21, 2024
Denies pain
Objective Data
-
Labs:
Laboratory Results
02/21/24
05:38
WBC 5.6
Hgb 12.6 L
Hct 37.2 L
Plt Count 214
Sodium 136
Potassium 4.3
Chloride 97 L
Carbon Dioxide 28
BUN 59 H
Creatinine 2.3 H
Glucose 120 H
Calcium 9.6
Vital Signs:
Vital Signs
Temp Pulse Resp BP Pulse Ox
98 F 76 16 149/74 96
02/21/24 08:07 02/21/24 08:07 02/21/24 08:07 02/21/24 08:07 02/21/24 10:02
I&O
02/20/24 02/21/24 02/22/24
06:59 06:59 06:59
Intake Total 240 / 240
Balance 240 / 240
--- NOTE | 2024-02-21 12:33 | W.PN.UPDATE ---
Update Note
Progress Note Update
-The patient's echocardiogram today was unremarkable; LVEF 60-65% with no significant valvular disease.
-Can follow-up with Cardiology as an outpatient; will arrange outpatient 30-day heart monitor.
--- NOTE | 2024-02-21 13:19 | W.DCSUMMARY ---
Discharge Summary
Discharge Data
Date of Admission: 02/20/24
Date of Discharge: 02/21/24
-
Pending Results: No
Hospital Course
78-year-old male with past medical history of CHF, CAD, diabetes mellitus, CKD, essential hypertension, hyperlipidemia, spinal stenosis status post spinal stimulator, peripheral neuropathy came to the hospital with hyperkalemia and new onset atrial
fibrillation. Patient also had some rigidity on admission which was likely thought was due to hyperkalemia which over time continue to improve. CT scan was done which did not show any acute CVA. MRI of was unable to be done due to spinal
stimulator. Patient symptoms over time continue to improve and were resolved prior to discharge. Patient did receive Lokelma which improved his potassium. For his atrial fibrillation he was seen by cardiology and had an echocardiogram which did
not show any valvular disease. Cardiology recommended patient to follow-up with them closely outpatient for outpatient pvc monitor. Given his elevated [id number] risk patient was started on Eliquis. Patient was also instructed to follow-up
with primary care provider for thyroid blood work. Once patient symptoms continue to improve and he remained in normal sinus rhythm, he was then discharged with instructions to follow-up with all his physicians outpatient.
Discharge Plan
-
Patient Disposition: Home (Routine Discharge)
Discharge Diagnosis/Procedures: New onset atrial fibrillation
Acute hyperkalemia
Chronic kidney disease
Diet: As tolerated and Other diet
Additional Diets: Low potassium diet
Activity: As tolerated
Driving Restrictions: As prior to admission
Bathing Restrictions: None
Blood Work: BMP next week with primary care provider or nephrology, TSH with reflex to free T4 with PCP
Others Tests: 30 day heart monitor. Cardiology office will call you to arrange.
Instructions: *CBC Heart Failure Instructions
Referrals:
Rashawn Hess MD [Active] - in four to six weeks (Office will call to arrange visit )
Finesse Mccullough DO [Family Provider] - in less than 1 week
Prescriptions:
New
Eliquis 5 mg Tablet
5 mg PO BID Qty: 60 0RF
furosemide 20 mg Tablet
40 mg PO Q48H Qty: 0 0RF
Continued
atorvastatin 10 MG tablet
10 mg PO DAILY
albuterol sulfate 1 PUFF HFA aerosol inhaler
2 puff inhalation R Q4HPRN PRN (Reason: SOB)
Insulin Pump [Patient's Own Insulin Pump:] 1 UNITS Pump.Resvr
0 ea SC .CONTINUOUS
Patient Comments:
PT USES humalog
Rx Instructions:
via humalog
aspirin 81 MG tablet,chewable
81 mg PO DAILY 30 Days Qty: 30 0RF
irbesartan 300 MG tablet
150 mg PO BID Qty: 0 0RF
tramadol 50 mg tablet
50 mg PO TIDPRN PRN (Reason: severe pains)
duloxetine [Cymbalta] 20 mg Capsule,Delayed Release(Dr/Ec)
20 mg PO DAILY
Jardiance 10 mg Tablet
10 mg PO DAILY
verapamil 120 mg Tablet Extended Release
120 mg PO BID
Discontinued
furosemide [Lasix] 20 MG tablet
40 mg PO BID
Discharge Orders:
Discharge Patient (As Directed); Ordered 02/21/24
Ordered By: Aditya Dueñas
Discharge Date and Time
Discharge Date/Time: 02/21/24 14:45
Print Language: FRISIAN
[2024-02-21 14:36] VITALS: BP 87/51
== END 2024-02-21 14:45 | disposition home or self-care (01) | DRG 641 ==
LOC: 3 WEST ACU 15:31
PROVIDERS: Emergency Medicine; Physician Assistant Medical; ADMITTING PHYSICIAN Hospitalist; ATTENDING PHYSICIAN Internal Medicine; CONSULT PHYSICIAN Student in an Organized Health Care Education/Training Program; EMERGENCY PHYSICIAN Emergency Medicine; FAMILY PHYSICIAN Family Medicine
DX: E87.5 Hyperkalemia (principal); I13.0 Hypertensive heart and chronic kidney disease with heart failure and stage 1 through stage 4 chronic kidney disease, or unspecified chronic kidney disease; I50.32 Chronic diastolic (congestive) heart failure; N18.4 Chronic kidney disease, stage 4 (severe); Z87.891 Personal history of nicotine dependence; I48.91 Unspecified atrial fibrillation; Z79.4 Long term (current) use of insulin; E78.00 Pure hypercholesterolemia, unspecified; M48.00 Spinal stenosis, site unspecified
CPT/HCPCS: 70450; 71046; 80048; 80053; 82962; 83036; 83880; 84132; 84484; 85025; 85027; 93005; 93306; 99285

== ENCOUNTER 2024-03-18 17:23 | Emergency (ER) | payer MEDICARE, SELFPAY ==
[2024-03-18 17:30] VITALS: BP 116/96; BMI 23.9
[2024-03-18 17:33] VITALS: BP 116/96
--- NOTE | 2024-03-18 17:59 | ED.GENMED ---
History of Present Illness
General
Chief Complaint: Fall
Source: patient
Exam Limitations: none
Time Seen by Provider: 03/18/24 17:39
Nursing documentation reviewed up to this point in time: agreed with
History of Present Illness
History of Present Illness:
Patient with history of 'balance issues' and previous history of neck fracture from the fall, presents to ED after losing balance, and falling forward, hitting his forehead against alex chair. Denies loss of consciousness. Denies headache.
Patient does take Eliquis daily. Patient is complaining of neck and lower back pain. Denies loss of sensation or weakness. Denies nausea or vomiting. Denies blurred vision. Denies dizziness. Denies difficulty with speech.
Past History
Past History
ED Past Medical History: HTN, IDDM, Other (2006: Spinal cord injury, fall during hypoglycemic episode, fracture C spine, paralyzed for short time, had to learn to walk again. Vitrectomy, kidney disease, hepatitis,) and Other (Hernia,)
ED Past Surgical History: Other (hand surgery, c spine fusion, lumbar laminectomy)
Social History
Tobacco: Former smoker
Alcohol: Daily ( wine 1 glass and Martini 1 glass)
Drug: None
Personal:
Living: with family
Review of Systems
Review of Systems
Allergies reviewed?: Yes
All Other Systems: ROS reviewed and negative except as documented in HPI and ROS
Constitutional: Reports no symptoms
Respiratory: Reports no symptoms
Cardiac: Reports no symptoms
ABD/GI: Reports no symptoms
Musculoskeletal: Reports neck pain and back pain
Skin: Reports no symptoms
Neurological: Reports no symptoms; Denies dizzy, headache, weakness or numbness
Phy Exam
Physical Exam
Physical Exam:
Physical Exam
General: mild painful distress, not acutely ill. afebrile
Head: nc/at. eomi
Neck: supple. mild tenderness noted at base of neck without deformity.
Heart: s1/s2 regular rate and rhythm, no murmur.
Lungs: no acute respiratory distress. clear bilaterally
Abdomen: normal bowel sounds. not tender.
Back: diffuse lower back tenderness to palpation, without deformity/ecchymosis
Neuro: alert and oriented x 3. no focal neurological deficits
Skin: no rash
Psychiatric: well kept. interactive and cooperative
Extremities: no edema. no calf tenderness.
Course
Orders/Labs/Results
Orders:
Orders
03/18/24 17:43
CT Cervical Spine W/o Iv Contr Urgent
Comment:
Reason For Exam: trauma
CT Lumbar Spine W/o Iv Contras Urgent
Comment:
Reason For Exam: trauma
03/18/24 17:44
CT Head W/o Iv Contrast Urgent
Comment:
Reason For Exam: trauma
03/18/24 21:03
Case Management Consult ONCE
Case Management Consult: VN/Home Care
Vital Signs
Initial and Last Documented VS:
Initial Vital Signs
Temp Pulse Resp BP Pulse Ox
98.1 F 84 25 116/96 99
03/18/24 17:30 03/18/24 17:30 03/18/24 17:30 03/18/24 17:30 03/18/24 17:30
Last Documented Vital Signs
Temp Pulse Resp BP Pulse Ox
98.1 F 80 27 160/92 100
03/18/24 17:30 03/18/24 21:28 03/18/24 21:28 03/18/24 21:28 03/18/24 21:15
MDM/Problems Addressed
MDM/Problems Addressed:
CT head/c-spine/lumbar spine: no acute findings.
Pt able to ambulate with minimal assistance. Pt and spouse feel comfortable going home at this time, as he has cane/walker at home.
Case management will be consulted for home VN/ PT/OT
*Critical Care Note
Total Time (30-74mins, 75-104mins- exclusive of procedures): Not Applicable
ED Attending Note
-
Portions of this chart may have been created with voice recognition software.� Occasional wrong word or��sound alike� substitutions may have occurred due to the inherent limitations of voice recognition software.
Discharge Plan
Departure
Patient Disposition: Home (Routine Discharge)
Date of Disposition: 03/18/24
Time of Disposition: 21:06
Patient with high blood pressure during this ER visit?: Yes
Condition: Good
Discharge Problem:
Neck pain, Back pain, Skin tear
Instructions: Preventing falls in adults, Skin Abrasions (DC), Neck pain - ED discharge instructions, Back Pain
Prescriptions:
No Action
atorvastatin 10 MG tablet
10 mg PO DAILY
albuterol sulfate 1 PUFF HFA aerosol inhaler
2 puff inhalation R Q4HPRN PRN (Reason: SOB)
Insulin Pump [Patient's Own Insulin Pump:] 1 UNITS Pump.Resvr
0 ea SC .CONTINUOUS
Patient Comments:
PT USES humalog
Rx Instructions:
via humalog
aspirin 81 MG tablet,chewable
81 mg PO DAILY 30 Days Qty: 30 0RF
irbesartan 300 MG tablet
150 mg PO BID Qty: 0 0RF
tramadol 50 mg tablet
50 mg PO TIDPRN PRN (Reason: severe pains)
duloxetine [Cymbalta] 20 mg Capsule,Delayed Release(Dr/Ec)
20 mg PO DAILY
Jardiance 10 mg Tablet
10 mg PO DAILY
verapamil 120 mg Tablet Extended Release
120 mg PO BID
Eliquis 5 mg Tablet
5 mg PO BID Qty: 60 0RF
furosemide 20 mg Tablet
40 mg PO Q48H Qty: 0 0RF
Referrals:
Finesse Mccullough DO [Family Provider] -
Activity Restrictions/Additional Instructions:
As discussed, please follow-up with your primary care physician for reevaluation. In addition, you will receive a phone call from [facility] case management regarding evaluation for home PT/OT.
Interventions
Interventions:
*Risk Screen - Suicide Last Done: 03/18/24 17:46
*General Assessment Last Done: 03/18/24 17:43
*Neglect/Abuse Screening Last Done: 03/18/24 17:47
ED- Fall Risk Assessment Last Done: 03/18/24 21:45
*ED COVID-19 Vaccine History Last Done: 03/18/24 17:43
*Nursing Disposition Last Done: 03/18/24 21:45
ED-Musculoskeletal Assessment Last Done: 03/18/24 17:49
ED- Neurological Assessment Last Done: 03/18/24 17:47
ED-Skin Assessment Last Done: 03/18/24 17:48
Discharge Date and Time
Discharge Date/Time: 03/18/24 21:45
Print Language: LUXEMBOURGISH
[2024-03-18 18:00] VITALS: BP 147/90
[2024-03-18 20:01] VITALS: BP 185/86
[2024-03-18 21:28] VITALS: BP 160/92
--- NOTE | 2024-03-19 10:15 | CM ---
After hours ED CM consult for VN
Call to pt's home this morning- spoke with spouse as pt sleeping soundly
They are requesting VN be set up through [facility]
Pt has a hospital bed bed, WW and SPC at home
Current with Dr Finesse Mccullough, last visit 03/11/24
Home address is [address] [place] [address]
Referral made to [facility]
--- NOTE | 2024-03-19 10:38 | VNURNOTE ---
"Home Health Liaison spoke with patient's spouse Bernadette to discuss [facility] nurse/therapy, visits, schedule and homebound status. She is agreeable and understands that visits at home will be 2-3 x per week to assess and teach medical management. Spouse "Gregorio"is aware that [facility] will contact them for start of care in 1-2 days after discharge from . [facility] referral completed in [facility]."
== END 2024-03-18 21:45 | disposition home or self-care (01) ==
LOC: EMR 17:23
PROVIDERS: EMERGENCY PHYSICIAN Emergency Medicine; FAMILY PHYSICIAN Family Medicine
DX: S41.111A Laceration without foreign body of right upper arm, initial encounter (principal); M54.2 Cervicalgia; M54.9 Dorsalgia, unspecified; W01.190A Fall on same level from slipping, tripping and stumbling with subsequent striking against furniture, initial encounter; Z87.891 Personal history of nicotine dependence
CPT/HCPCS: 99284; 70450; 72125; 72131

== ENCOUNTER 2024-03-22 16:32 | Emergency (ER) | payer MEDICARE, SELFPAY ==
[2024-03-22 16:33] VITALS: BP 172/94
[2024-03-22 19:15] VITALS: BP 168/76
--- NOTE | 2024-03-22 20:53 | ED.GENMED ---
History of Present Illness
General
Chief Complaint: Back Pain
Time Seen by Provider: 03/22/24 20:16
History of Present Illness
History of Present Illness:
78-year-old male with history of A-fib on Eliquis, CKD, CHF, hypertension, diabetes with insulin pump presenting to the emergency department for persistent back pain and abdominal pain. Patient had a fall several weeks ago, has been following with
his doctor since the fall. He is on Tylenol and oxycodone for pain. He came to the hospital on 03/18 after he fell, struck his head, at which time he had a CT of his brain that was negative. Patient suffered a right upper extremity skin tear that
was not bandage. Patient saw OT today that was concerned that his pain had been worsening and he seemed more confused, so advised that he come to the hospital for reassessment. Patient also notes that he was supposed to get CT imaging of his
abdomen outpatient, however missed the appointment because he had to come to the hospital after his fall. His pain is in the lower back and radiates to the abdomen. Denies nausea, vomiting, changes in stool, numbness or tingling to extremities,
issues with urination. Denies additional acute medical complaints.
Past History
Past History
ED Past Medical History: HTN, IDDM, Other (2006: Spinal cord injury, fall during hypoglycemic episode, fracture C spine, paralyzed for short time, had to learn to walk again. Vitrectomy, kidney disease, hepatitis,) and Other (Hernia,)
ED Past Surgical History: Other (hand surgery, c spine fusion, lumbar laminectomy)
Social History
Tobacco: Former smoker
Alcohol: Daily ( wine 1 glass and Martini 1 glass)
Drug: None
Personal:
Living: with family
Phy Exam
Physical Exam
Physical Exam:
General: Well-appearing, no clinical signs of dehydration, nontoxic and in no acute distress
HEENT: protecting airway
Neck: appears supple
CV: Normal heart rate, regular rhythm
Resp: No accessory muscle use, no increased work of breathing, lungs clear to auscultation bilaterally
Abd: Soft and non-distended, mild generalized tenderness to lower abdomen without rebound or guarding
Extremities: No deformities, no swelling. Skin tear to the right forearm. No swelling or erythema. No abnormal drainage. No midline tenderness of the back. Generalized tenderness to the paraspinal musculature of the lower thoracic and upper
lumbar back. No rashes
Neuro: alert, no focal neurologic deficit
: deferred
Rectal: deferred
Psych: Normal affect
Skin: Intact
Course
Orders/Labs/Results
Orders:
Orders
03/22/24 20:39
CT Abd/pel Without Iv Or Oral Urgent
Reason For Exam: lower pain and back pain
Morphine Sulfate 4 mg IV NOW STA
03/22/24 20:51
Complete Blood Count/No Diff Urgent
03/22/24 20:53
CT Head W/o Iv Contrast Urgent
Comment:
Reason For Exam: change in mental
03/22/24 21:37
Comprehensive Metabolic Panel Urgent
03/22/24 23:33
Urinalysis Reflex To Culture Urgent
Date Specimen was Collected: 03/22/24
Time Specimen was Collected: 22:59
Urine Microscopic Reflex Cult Urgent
03/23/24 00:37
Meclizine [Antivert] 25 mg PO NOW STA
Ondansetron HCl [Zofran] 4 mg PO NOW STA
03/23/24 02:35
Meclizine [Antivert] 25 mg PO NOW STA
Ondansetron HCl [Zofran] 4 mg PO NOW STA
Abnormal Lab Results
03/22/24 03/22/24 03/22/24
20:51 21:37 23:33
RBC 3.95 L 10^6/uL
(4.70-6.10)
MCV 98.7 H fL
(80.0-94.0)
MCH 33.9 H pg
(27.0-31.0)
BUN 32 H mg/dl
(9-20)
Creatinine 1.9 H mg/dL
(0.7-1.3)
Alkaline Phosphatase 132 H U/L
(38-126)
Urine Ketones 1+ A
(Negative)
Ur Occult Blood Reflex 1+ A
(Negative)
Urine Glucose 4+ A
(Negative)
Urine Albumin (Reflex) 2+ A
(Neg - Trace)
03/22/24 20:51
03/22/24 21:37
Vital Signs
Initial and Last Documented VS:
Initial Vital Signs
Temp Pulse Resp BP Pulse Ox
97.5 F 78 16 172/94 99
03/22/24 16:33 03/22/24 16:33 03/22/24 16:33 03/22/24 16:33 03/22/24 16:33
Last Documented Vital Signs
Temp Pulse Resp BP Pulse Ox
97.5 F 78 18 179/94 99
03/22/24 16:33 03/22/24 22:00 03/22/24 22:00 03/23/24 02:00 03/23/24 02:30
MDM/Problems Addressed
MDM/Problems Addressed:
78-year-old male with history of A-fib on Eliquis, CKD, CHF, hypertension, diabetes with insulin pump presenting to the emergency department for persistent back pain and abdominal pain. Vital signs are significant for mild hypertension.
On exam, patient is in no acute distress, slightly uncomfortable secondary to pain, however able to move about the bed without difficulty. Patient's location of pain is the paraspinal musculature of the lower thoracic and upper lumbar back. On
review of EMR, patient has had imaging of his back in the past, no acute fracture or malalignment. Suspect possible musculoskeletal quality to symptoms. However, within the past few weeks notes the pain is radiating to the abdomen, so PCP
recommended a CT of his abdomen which is reasonable. Will obtain at this time given persistence of symptoms. reports that his occupational therapist was concerned about his mental status, seen more confused and had advised a repeat CT brain
imaging. Communicated to that low utility given CT on the 10th and no report of fall in between the 10th to the 14th. However we will obtain to ensure no acute change. Ministered morphine for pain. Given that patient's pain is lower, will
also obtain urinalysis.
23:50 -CT shows a T12 fracture. Suspect etiology of patient's pain. Otherwise no significant findings. Urine without sign of infection. Patient offered more pain medication, however would prefer to have his pain medication at home before he goes
to bed. Patient is going to follow-up with his pain management doctor and his primary care doctor. Return precautions discussed and patient verbalized understanding
*Critical Care Note
Total Time (30-74mins, 75-104mins- exclusive of procedures): Not Applicable
ED Attending Note
-
Portions of this chart may have been created with voice recognition software.� Occasional wrong word or��sound alike� substitutions may have occurred due to the inherent limitations of voice recognition software.
Discharge Plan
Departure
Patient Disposition: Home (Routine Discharge)
Date of Disposition: 03/23/24
Time of Disposition: 00:01
Patient with high blood pressure during this ER visit?: No
Condition: Good
Discharge Problem:
Closed T12 spinal fracture
Instructions: Vertebral Compression Fracture ED
Prescriptions:
New
ondansetron 4 mg Tablet,Disintegrating
4 mg PO TIDPRN PRN (Reason: nausea/vomiting) Qty: 6 0RF
meclizine 12.5 mg tablet
12.5 mg PO TID PRN (Reason: dizziness) Qty: 14 0RF
No Action
atorvastatin 10 MG tablet
10 mg PO DAILY
albuterol sulfate 1 PUFF HFA aerosol inhaler
2 puff inhalation R Q4HPRN PRN (Reason: SOB)
Insulin Pump [Patient's Own Insulin Pump:] 1 UNITS Pump.Resvr
0 ea SC .CONTINUOUS
Patient Comments:
PT USES humalog
Rx Instructions:
via humalog
aspirin 81 MG tablet,chewable
81 mg PO DAILY 30 Days Qty: 30 0RF
irbesartan 300 MG tablet
150 mg PO BID Qty: 0 0RF
tramadol 50 mg tablet
50 mg PO TIDPRN PRN (Reason: severe pains)
duloxetine [Cymbalta] 20 mg Capsule,Delayed Release(Dr/Ec)
20 mg PO DAILY
Jardiance 10 mg Tablet
10 mg PO DAILY
verapamil 120 mg Tablet Extended Release
120 mg PO BID
Eliquis 5 mg Tablet
5 mg PO BID Qty: 60 0RF
furosemide 20 mg Tablet
40 mg PO Q48H Qty: 0 0RF
Referrals:
James Gonzalez DO [Active] -
Finesse Mccullough DO [Family Provider] -
Activity Restrictions/Additional Instructions:
You were seen in the emergency department for back pain
You were found to have a fracture to your T12 spinous process. Please continue to follow-up with your primary care doctor and your pain management doctor. Information also provided for neurosurgery
Please follow-up closely with your primary care physician.
Return to the emergency department for any worsening of your symptoms, or any development of chest pain, difficulty breathing, abdominal pain with persistent vomiting and inability to tolerate food or liquid by mouth (concern for dehydration),
weakness, headache or confusion, fever greater than 100.4, or any additional symptoms that are concerning to you.
Thank you for choosing [facility].
Interventions
Interventions:
*Risk Screen - Suicide Last Done: 03/22/24 16:41
*General Assessment Last Done: 03/22/24 16:41
*Neglect/Abuse Screening Last Done: 03/22/24 16:41
*ED COVID-19 Vaccine History Last Done: 03/22/24 16:41
ED-Musculoskeletal Assessment Last Done: 03/22/24 16:41
Discharge Date and Time
Print Language: GEORGIAN
[2024-03-22] MEDS: MORPHINE SULFATE 4 MG IV (21:02)
[2024-03-22 21:04] LABS: Hemoglobin 13.4 g/dL (13.0-18.0); Mean Corp Hgb Conc. 34.4 g/dL (33.0-37.0); Mean Corpuscular Hgb 33.9 pg (27.0-31.0); Mean Corpuscular Volume 98.7 fL (80.0-94.0); Mean Platelet Volume 9.3 fL (7.4-10.4); Platelet Count 290 10^3/uL (130-400); Red Blood Cell Count 3.95 10^6/uL (4.70-6.10); Red Cell Dist. Width 13.1 % (11.5-14.5); White Blood Cell Count 7.1 10^3/uL (4.8-10.8)
[2024-03-22 21:15] VITALS: BP 165/74
[2024-03-22 22:00] VITALS: BP 149/76
[2024-03-22 22:03] LABS: ALT (SGPT) 13 U/L (0-50); AST (SGOT) 18 U/L (17-59); Alkaline Phosphatase 132 U/L (38-126); Blood Urea Nitrogen 32 mg/dl (9-20); Calcium 9.5 mg/dl (8.4-10.2); Carbon Dioxide 27 mmol/L (22-30); Chloride 101 mmol/L (98-107); Glucose 82 mg/dl (70-99); Potassium 4.4 mmol/L (3.5-5.1); Sodium 137 mmol/L (135-145); Total Bilirubin 0.8 mg/dl (0.2-1.3); Total Protein 6.5 g/dl (6.3-8.2); eGFR 35.66
[2024-03-22 22:53] VITALS: BP 184/79
[2024-03-22 23:00] VITALS: BP 184/76
[2024-03-22 23:53] LABS: Urine Albumin 2+ (Neg - Trace); Urine Bilirubin Negative (Negative); Urine Character Clear (Clear); Urine Color Yellow; Urine Glucose 4+ (Negative); Urine Ketone 1+ (Negative); Urine Leukocyte Negative (Negative); Urine Nitrite Negative (Negative); Urine Occult Blood 1+ (Negative); Urine Specific Gravity 1.015 (<1.030); Urine Urobilinogen Negative (Neg - 1+)
[2024-03-23] VITALS: BP 179/74
[2024-03-23 00:04] LABS: Urine Red Blood Cell 0-2 /HPF (0-2); Urine White Cell 0-2 /HPF (0-5)
[2024-03-23] MEDS: ANTIVERT 25 MG PO ×2 (00:48→02:41)
[2024-03-23] MEDS: ZOFRAN 4 MG PO ×2 (00:50→02:41)
[2024-03-23 01:19] VITALS: BP 166/106
[2024-03-23 02:00] VITALS: BP 179/94
== END 2024-03-23 04:33 | disposition home or self-care (01) ==
LOC: EMR 16:32
PROVIDERS: EMERGENCY PHYSICIAN Student in an Organized Health Care Education/Training Program; FAMILY PHYSICIAN Family Medicine
DX: S22.088A Other fracture of T11-T12 vertebra, initial encounter for closed fracture (principal); W19.XXXA Unspecified fall, initial encounter; I13.0 Hypertensive heart and chronic kidney disease with heart failure and stage 1 through stage 4 chronic kidney disease, or unspecified chronic kidney disease; E11.22 Type 2 diabetes mellitus with diabetic chronic kidney disease; N18.9 Chronic kidney disease, unspecified; I50.9 Heart failure, unspecified; I48.91 Unspecified atrial fibrillation; Z79.01 Long term (current) use of anticoagulants; Z79.4 Long term (current) use of insulin; Z96.41 Presence of insulin pump (external) (internal); Z87.891 Personal history of nicotine dependence; Z98.1 Arthrodesis status
CPT/HCPCS: 96374; 99284; 70450; 74176; 80053; 81003; 81015; 85027

== ENCOUNTER 2024-07-06 10:31 | Emergency (ER) | payer MEDICARE, SELFPAY ==
[2024-07-06] VITALS (12 sets, daily range): BP systolic 132–164; BP diastolic 65–82
[2024-07-06 11:00] LABS: Glucose - Point of Care 123 mg/dl (70-99)
--- NOTE | 2024-07-06 12:10 | ED.GENMED ---
History of Present Illness
General
Chief Complaint: Fall
Time Seen by Provider: 07/06/24 11:06
History of Present Illness
History of Present Illness:
78-year-old male with history of diabetes, hypertension, CKD presenting to the emergency department after a fall. Patient arrives, reports fall last night around 2:30 AM. Patient is unsure regarding the etiology of the fall. arrived shortly
after patient, notes that he was walking to get something to drink. She heard a loud sound, patient had fallen to the ground. Patient was able to get up, get to the bed with his walker. When he woke up this morning, was complaining of right-sided
pain. He is not presently on any blood thinners. notes that patient has had issues with his balance, has been worked up for this, with concern for possible orthostatic hypotension. At one point they thought that he may have had A-fib,
however has been cleared from that perspective. Patient on arrival currently reports right-sided clavicular pain, right rib pain. Denies any present headache. Patient also had recent diagnosis of T12 fracture after fall, status post kyphoplasty.
He took tramadol and Tylenol prior to arrival. No additional history obtained at this time.
Past History
Past History
ED Past Medical History: HTN, IDDM, Other (2006: Spinal cord injury, fall during hypoglycemic episode, fracture C spine, paralyzed for short time, had to learn to walk again. Vitrectomy, kidney disease, hepatitis,) and Other (Hernia,)
ED Past Surgical History: Other (hand surgery, c spine fusion, lumbar laminectomy)
Social History
Tobacco: Former smoker
Alcohol: Daily ( wine 1 glass and Martini 1 glass)
Drug: None
Personal:
Living: with family
Phy Exam
Physical Exam
Physical Exam:
General: Well-appearing, no clinical signs of dehydration, nontoxic and in no acute distress
Head: Atraumatic
HEENT: protecting airway
Neck: appears supple, no tenderness
CV: Normal heart rate, regular rhythm
Resp: No accessory muscle use, no increased work of breathing, lungs clear to auscultation bilaterally
Abd: Soft and non-distended, tenderness to right upper quadrant.
Extremities: No deformities, no swelling. Bruising and pain to the right clavicular region. No skin tenting. Range of motion limited to right shoulder. Secondary to pain in that area. No significant deformity. Distal sensation and pulses
intact. Tenderness to the right mid axillary rib region. No crepitus.
Neuro: alert, no focal neurologic deficit
: deferred
Rectal: deferred
Psych: Normal affect
Skin: Intact
Course
Orders/Labs/Results
Orders:
Orders
07/06/24 10:43
CR Clavicle - Right Complete Urgent
Comment:
Reason For Exam: Trauma
07/06/24 11:35
Cardiac Monitoring- Treatment ONCE
07/06/24 11:36
CT Chest/abd/pel W Iv Cont Urgent
Reason For Exam: right rib and abdominal pain
CT Head W/o Iv Contrast Urgent
Comment:
Reason For Exam: fall, unwitnessed
07/06/24 11:38
Acetaminophen [Tylenol] 1,000 mg PO NOW STA
07/06/24 11:58
Morphine Sulfate 4 mg IV NOW STA
07/06/24 12:09
Complete Blood Count/With Diff Urgent
Comprehensive Metabolic Panel Urgent
07/06/24 12:20
EKG [Electrocardiogram (*1)] Urgent
Reason for Study: Other
Other Reason for Exam: fall
EKG- Treatment ONCE
Abnormal Lab Results
07/06/24 07/06/24
10:59 12:09
RBC 3.90 L 10^6/uL
(4.70-6.10)
Hgb 12.7 L g/dL
(13.0-18.0)
Hct 38.8 L %
(39.0-52.0)
MCV 99.5 H fL
(80.0-94.0)
MCH 32.6 H pg
(27.0-31.0)
MCHC 32.7 L g/dL
(33.0-37.0)
Abs Immat Gran (auto) 0.1 H 10^3/uL
(0-0.05)
Absolute Lymphs (auto) 0.7 L 10^3/uL
(1.2-3.4)
Absolute Monos (auto) 0.8 H 10^3/uL
(0.1-0.6)
Immature Gran % 0.7 H %
(0-0.5)
Neutrophils % 77.7 H %
(42.2-75.2)
Lymphocytes % 9.2 L %
(20.5-51.1)
Monocytes % 10.8 H %
(1.7-9.3)
Potassium 5.4 H mmol/L
(3.5-5.1)
Chloride 110 H mmol/L
(98-107)
BUN 36 H mg/dl
(9-20)
Creatinine 1.7 H mg/dL
(0.7-1.3)
Glucose 142 H mg/dl
(70-99)
POC Glucose 123 H mg/dl
(70-99)
07/06/24 12:09
07/06/24 12:09
Vital Signs
Initial and Last Documented VS:
Initial Vital Signs
Temp Pulse Resp BP Pulse Ox
98.0 F 95 16 164/82 96
07/06/24 10:32 07/06/24 10:32 07/06/24 10:32 07/06/24 10:32 07/06/24 10:32
Last Documented Vital Signs
Temp Pulse Resp BP Pulse Ox
98.0 F 82 21 152/65 96
07/06/24 10:32 07/06/24 14:15 07/06/24 14:00 07/06/24 14:10 07/06/24 14:15
MDM/Problems Addressed
MDM/Problems Addressed:
78-year-old male with history of diabetes, hypertension, CKD presenting earlier this morning. Vital signs on arrival are significant for mild hypertension.
On exam patient resting comfortably, no acute distress or discomfort. No signs of head trauma. However patient unclear regarding details of fall, does note that he struck his head without loss of consciousness. Will obtain CT brain imaging. No
midline cervical tenderness. Generalized tenderness to the right clavicle, right rib region. Suspected possible clavicular fracture, rib contusion versus fracture. Patient additionally has some tenderness to the right upper quadrant. In the
setting of trauma with rib pain, will obtain CT chest and abdomen to rule out acute intra-abdominal injury or lung injury. Will obtain clavicular x-ray. Regarding mechanism of fall, suspect could be secondary to known issues with balance. Will
screen with laboratory analysis, EKG. Morphine and Tylenol administered for pain
15:30 - CT shows multiple right-sided rib fractures. No significant pathology in the abdomen. Given the amount of rib fractures, feel patient better served at a trauma center. Patient excepted to [facility]. Will provide transport. Stable from a
respiratory standpoint
*Critical Care Note
Total Time (30-74mins, 75-104mins- exclusive of procedures): 46
comment:
The high probability of a clinically significant, sudden or life threatening deterioration of the trauma system(s) required my full and direct attention, intervention and personal management. The aggregate critical care time was 46 minutes. This
time is in addition to time spent performing reported procedures but includes the following:
[x] Data Review and interpretation
[x] Patient assessment and monitoring of vital signs
[x] Documentation
[x] Medication orders and management
ED Attending Note
-
Portions of this chart may have been created with voice recognition software.� Occasional wrong word or��sound alike� substitutions may have occurred due to the inherent limitations of voice recognition software.
Discharge Plan
Departure
Patient Disposition: Acute Care Hospital
Date of Disposition: 07/06/24
Time of Disposition: 15:33
Patient with high blood pressure during this ER visit?: No
Condition: Fair
Discharge Problem:
Multiple fractures of ribs of right side, Right clavicle fracture, Fall
Prescriptions:
No Action
atorvastatin 10 MG tablet
10 mg PO DAILY
albuterol sulfate 1 PUFF HFA aerosol inhaler
2 puff inhalation R Q4HPRN PRN (Reason: SOB)
Insulin Pump [Patient's Own Insulin Pump:] 1 UNITS Pump.Resvr
0 ea SC .CONTINUOUS
Patient Comments:
PT USES humalog
Rx Instructions:
via humalog
aspirin 81 MG tablet,chewable
81 mg PO DAILY 30 Days Qty: 30 0RF
irbesartan 300 MG tablet
150 mg PO BID Qty: 0 0RF
tramadol 50 mg tablet
50 mg PO TIDPRN PRN (Reason: severe pains)
duloxetine [Cymbalta] 20 mg Capsule,Delayed Release(Dr/Ec)
20 mg PO DAILY
Jardiance 10 mg Tablet
10 mg PO DAILY
verapamil 120 mg Tablet Extended Release
120 mg PO BID
Eliquis 5 mg Tablet
5 mg PO BID Qty: 60 0RF
furosemide 20 mg Tablet
40 mg PO Q48H Qty: 0 0RF
ondansetron 4 mg Tablet,Disintegrating
4 mg PO TIDPRN PRN (Reason: nausea/vomiting) Qty: 6 0RF
meclizine 12.5 mg tablet
12.5 mg PO TID PRN (Reason: dizziness) Qty: 14 0RF
Referrals:
Finesse Mccullough DO [Family Provider, Family Practice]
Hospital Transfer
Other hospital: [facility]
I certify that the patient requires transfer: Yes
Discussed case with accepting physician: Dr. Tlaa Ocasio
Reason for transfer: specialties available
Interventions
Interventions:
*Risk Screen - Suicide Last Done: 07/06/24 10:32
*General Assessment Last Done: 07/06/24 12:00
*Neglect/Abuse Screening Last Done: 07/06/24 10:32
*ED- Fall Risk Assessment Last Done: 07/06/24 12:00
ED-Musculoskeletal Assessment Last Done: 07/06/24 12:00
ED- Neurological Assessment Last Done: 07/06/24 12:00
Discharge Date and Time
Print Language: PASHTO
[2024-07-06 12:24] LABS: % Basophils 0.7 % (0-2); % Eosinophils 0.9 % (0-6); % Immature Granulocytes 0.7 % (0-0.5); % Lymphocytes 9.2 % (20.5-51.1); % Monocytes 10.8 % (1.7-9.3); % Neutrophils 77.7 % (42.2-75.2); Absolute Basophils 0.1 10^3/uL (0-0.2); Absolute Eosinophils 0.1 10^3/uL (0-0.7); Absolute Immature Granulocytes 0.1 10^3/uL (0-0.05); Absolute Lymphocytes 0.7 10^3/uL (1.2-3.4); Absolute Monocytes 0.8 10^3/uL (0.1-0.6); Absolute Neutrophils 5.5 10^3/uL (1.4-6.5); Hematocrit 38.8 % (39.0-52.0); Hemoglobin 12.7 g/dL (13.0-18.0); Mean Corp Hgb Conc. 32.7 g/dL (33.0-37.0); Mean Corpuscular Hgb 32.6 pg (27.0-31.0); Mean Corpuscular Volume 99.5 fL (80.0-94.0); Mean Platelet Volume 8.8 fL (7.4-10.4); Nucleated Red Blood Cells % 0 % (-); Platelet Count 227 10^3/uL (130-400); Red Cell Dist. Width 13.8 % (11.5-14.5)
[2024-07-06] MEDS: MORPHINE SULFATE 4 MG IV ×2 (12:29→16:27)
[2024-07-06] MEDS: TYLENOL 1000 MG PO (12:30)
[2024-07-06 12:36] LABS: ALT (SGPT) 19 U/L (0-50); AST (SGOT) 24 U/L (17-59); Albumin 4.4 g/dl (3.5-5.0); Alkaline Phosphatase 121 U/L (38-126); Blood Urea Nitrogen 36 mg/dl (9-20); Calcium 9.7 mg/dl (8.4-10.2); Carbon Dioxide 25 mmol/L (22-30); Chloride 110 mmol/L (98-107); Glucose 142 mg/dl (70-99); Potassium 5.4 mmol/L (3.5-5.1); Sodium 142 mmol/L (135-145); Total Bilirubin 0.8 mg/dl (0.2-1.3); Total Protein 7.2 g/dl (6.3-8.2); eGFR 40.75
== END 2024-07-06 17:22 | disposition short-term general hospital (02) ==
LOC: EMR 10:31
PROVIDERS: EMERGENCY PHYSICIAN Student in an Organized Health Care Education/Training Program; FAMILY PHYSICIAN Family Medicine
DX: S22.41XA Multiple fractures of ribs, right side, initial encounter for closed fracture (principal); S42.021A Displaced fracture of shaft of right clavicle, initial encounter for closed fracture; W19.XXXA Unspecified fall, initial encounter; E11.22 Type 2 diabetes mellitus with diabetic chronic kidney disease; I12.9 Hypertensive chronic kidney disease with stage 1 through stage 4 chronic kidney disease, or unspecified chronic kidney disease; N18.9 Chronic kidney disease, unspecified; Z79.4 Long term (current) use of insulin; Z87.891 Personal history of nicotine dependence; Z98.1 Arthrodesis status
CPT/HCPCS: 99291; 96374; 96376; 70450; 71260; 73000; 74177; 80053; 82962; 85025; 93005; Q9967

== ENCOUNTER → 2024-10-13 10:30 | Outpatient (REF) | payer MEDICARE, SELFPAY | LOC: EMR 10:30 | PROVIDERS: ATTENDING PHYSICIAN Physician Assistant | DX: R05.1 Acute cough (principal) | CPT/HCPCS: 71046 ==

== ENCOUNTER 2024-12-05 05:16 | Emergency (ER) | payer MEDICARE, SELFPAY ==
[2024-12-05 05:31] VITALS: BMI 25.3
[2024-12-05 05:36] VITALS: BP 199/60
[2024-12-05 05:50] LABS: Hematocrit 39.1 % (39.0-52.0); Hemoglobin 12.9 g/dL (13.0-18.0); Mean Corp Hgb Conc. 33.0 g/dL (33.0-37.0); Mean Corpuscular Volume 98.0 fL (80.0-94.0); Nucleated Red Blood Cells % 0 % (-); Platelet Count 280 10^3/uL (130-400); Red Cell Dist. Width 13.5 % (11.5-14.5)
[2024-12-05 05:59] LABS: Urine Character Clear (Clear)
[2024-12-05 06:19] LABS: Urine Red Blood Cell 0-2 /HPF (0-2); Urine Squamous Cell 0-2 /LPF (Few); Urine White Cell 0-2 /HPF (0-5)
[2024-12-05 06:21] LABS: ALT (SGPT) 18 U/L (0-50); AST (SGOT) 21 U/L (17-59); Albumin 4.2 g/dl (3.5-5.0); Alkaline Phosphatase 110 U/L (38-126); Blood Urea Nitrogen 27 mg/dl (9-20); Calcium 9.9 mg/dl (8.4-10.2); Carbon Dioxide 24 mmol/L (22-30); Chloride 104 mmol/L (98-107); Estimated Creatinine Clearance 34 ml/min; Glucose 137 mg/dl (70-99); Potassium 4.2 mmol/L (3.5-5.1); Sodium 139 mmol/L (135-145); Total Protein 7.2 g/dl (6.3-8.2); eGFR 43.56
[2024-12-05 06:30] VITALS: BP 180/99
[2024-12-05] MEDS: TYLENOL 1000 MG PO (06:52)
[2024-12-05 07:00] VITALS: BP 186/97
[2024-12-05] MEDS: AVAPRO 75 MG PO (07:03)
--- NOTE | 2024-12-05 07:03 | ED.GENMED ---
History of Present Illness
General
Chief Complaint: Abdominal Pain
Time Seen by Provider: 12/05/24 06:09
History of Present Illness
History of Present Illness:
79-year-old male with history of diabetes, hypertension, CKD, history of chronic balance issues presenting to the emergency department for vomiting. Patient arrives with who notes that last evening he had a fall which is not atypical for him.
Patient has been undergoing evaluation at [facility] for his balance issues with potential consideration for NPH versus Parkinson's. He had a fall last week, was seen at [place], suffered a left clavicular fracture. Patient fell last evening,
did strike his head, medics were called, however did not require transport to the hospital at that time. This morning, patient had to get up to go to the bathroom and had difficulty assisting him. He then had a an episode of vomiting,
reported very dark brown in color. On arrival, notes that his blood pressure is elevated, is usually controlled. He is complaining of a headache. Denies any significant abdominal pain. Notes hernia repair in the past. Denies any fever. Denies
any focal weakness. Denies chest pain or difficulty breathing. He is not currently on any anticoagulation. He denies additional acute medical complaints
Past History
Past History
ED Past Medical History: HTN, IDDM, Other (2006: Spinal cord injury, fall during hypoglycemic episode, fracture C spine, paralyzed for short time, had to learn to walk again. Vitrectomy, kidney disease, hepatitis,) and Other (Hernia,)
ED Past Surgical History: Other (hand surgery, c spine fusion, lumbar laminectomy)
Social History
Tobacco: Former smoker
Alcohol: Daily ( wine 1 glass and Martini 1 glass)
Drug: None
Personal:
Living: with family
Phy Exam
Physical Exam
Physical Exam:
General: Well-appearing, no clinical signs of dehydration, nontoxic and in no acute distress
HEENT: protecting airway
Neck: appears supple
CV: Normal heart rate, regular rhythm
Resp: No accessory muscle use, no increased work of breathing, lungs clear to auscultation bilaterally. Healing ecchymosis to the left clavicular region.
Abd: Soft and non-distended, no tenderness to palpation, normal bowel sounds
Extremities: No deformities, no swelling
Neuro: alert, no focal neurologic deficit
: deferred
Rectal: deferred
Psych: Normal affect
Skin: Intact
Course
Orders/Labs/Results
Orders:
Orders
12/05/24 05:42
CMP [Comprehensive Metabolic Panel] Urgent
Complete Blood Count/With Diff Urgent
Urinalysis Reflex To Culture Urgent
Date Specimen was Collected: 12/05/24
Time Specimen was Collected: 05:35
Urine Microscopic Reflex Cult Urgent
Urine Culture Urgent
DERIK Source: U
Specimen Description:
Date Specimen was Collected: 12/05/24
Time Specimen was Collected: 05:35
12/05/24 06:41
CT Head W/o Iv Contrast Urgent
Comment:
Reason For Exam: headache, fall
Acetaminophen [Tylenol] 1,000 mg PO NOW STA
12/05/24 06:42
CT Abd/pelvis W Iv Cont Urgent
Comment:
Reason For Exam: dark emesis prior to arrival
12/05/24 06:51
Irbesartan [Avapro] 75 mg PO NOW STA
12/05/24 08:43
Tramadol HCl [Ultram] 50 mg PO NOW STA
Abnormal Lab Results
12/05/24
05:42
RBC 3.99 L 10^6/uL
(4.70-6.10)
Hgb 12.9 L g/dL
(13.0-18.0)
MCV 98.0 H fL
(80.0-94.0)
MCH 32.3 H pg
(27.0-31.0)
Abs Immat Gran (auto) 0.1 H 10^3/uL
(0-0.05)
Absolute Neuts (auto) 9.0 H 10^3/uL
(1.4-6.5)
Absolute Lymphs (auto) 0.8 L 10^3/uL
(1.2-3.4)
Absolute Monos (auto) 0.8 H 10^3/uL
(0.1-0.6)
Immature Gran % 0.7 H %
(0-0.5)
Neutrophils % 84.0 H %
(42.2-75.2)
Lymphocytes % 7.3 L %
(20.5-51.1)
BUN 27 H mg/dl
(9-20)
Creatinine 1.6 H mg/dL
(0.7-1.3)
Glucose 137 H mg/dl
(70-99)
Leukocyte Esterase Rfl 1+ A
(Negative)
Urine Albumin (Reflex) 3+ A
(Neg - Trace)
12/05/24 05:42
12/05/24 05:42
Vital Signs
Initial and Last Documented VS:
Initial Vital Signs
Pulse Resp
93 25
12/05/24 05:30 12/05/24 05:30
Last Documented Vital Signs
Temp Pulse Resp BP Pulse Ox
97.4 F 83 13 177/89 98
12/05/24 05:34 12/05/24 07:30 12/05/24 07:30 12/05/24 07:30 12/05/24 07:03
MDM/Problems Addressed
MDM/Problems Addressed:
79-year-old male with history of A-fib, CKD, diabetes, hypertension, balance issues presenting after a fall with vomiting and headache.
Vital signs on arrival significant for high blood pressure. On exam patient is resting comfortably. Notes headache, otherwise no significant acute medical complaints. No signs of head injury or trauma. However in the setting of headache with
recent fall and high blood pressure, will screen with CT brain imaging. No significant tenderness to the cervical spine. Patient noted to have episode of dark emesis prior to arrival arrived as 'coffee ground '. GI bleed is a consideration,
however no present hemodynamic instability regarding concern for volume depletion. Plan for screening laboratory analysis. Currently denying any abdominal pain, however is tense to the abdomen with some slight guarding. Bowel obstruction is also
consideration. Will obtain a CT abdomen pelvis and start patient on IV fluids. Regarding patient elevated pressure, no present concern for hypertensive urgency or emergency. Blood pressure has improved since arrival. Will administer his home
blood pressure medication, which he is due for.
09:30 - Patient's CT head is unremarkable. CT of the abdomen shows some inflammation to the rectal region, possible proctitis. Patient denies any symptoms consistent with proctitis. Also some urinary bladder wall thickening. Urine however
without any significant sign of infection. Patient denies urinary symptoms. There is also mention of a small left pleural effusion. Suspect to be reactive from recent trauma to the chest. There is also subacute to chronic rib fractures of the
right 9th and 10th rib. Patient did suffer a rib fractures back in June. He is reporting some pain to that area, likely exacerbated prior injuries. Tramadol administered for pain, which patient takes at home. Labs otherwise unremarkable. Normal
baseline hemoglobin and chronic kidney disease. On reassessment, no additional episodes of vomiting, patient again denies any abdominal pain. Ultimately feel that he is stable for discharge. Patient and both in agreement, would like to go
home. However, strict return precautions were communicated and both patient and verbalized understand
*Pulse Oximetry
SaO2: 98
Patient hypoxic: no
*Critical Care Note
Total Time (30-74mins, 75-104mins- exclusive of procedures): Not Applicable
ED Attending Note
-
Portions of this chart may have been created with voice recognition software.� Occasional wrong word or��sound alike� substitutions may have occurred due to the inherent limitations of voice recognition software.
Discharge Plan
Departure
Prescriptions:
No Action
atorvastatin 10 MG tablet
10 mg PO DAILY
albuterol sulfate 1 PUFF HFA aerosol inhaler
2 puff inhalation R Q4HPRN PRN (Reason: SOB)
Insulin Pump [Patient's Own Insulin Pump:] 1 UNITS Pump.Resvr
0 ea SC .CONTINUOUS
Patient Comments:
PT USES humalog
tramadol 50 mg tablet
50 mg PO TIDPRN PRN (Reason: severe pains)
irbesartan 75 mg tablet
75 mg PO DAILY
venlafaxine 37.5 mg capsule,extended release 24hr
37.5 mg PO DAILY
cyanocobalamin (vitamin B-12) 1,000 mcg tablet
1,000 mcg PO DAILY
thiamine HCl (vitamin B1) 100 mg tablet
100 mg PO DAILY
nortriptyline 10 mg capsule
10 mg PO BID
insulin lispro [Humalog U-100 Insulin] 100 unit/mL solution
See Rx Instructions .ROUTE .COMPLEX
Rx Instructions:
use with patient's own insulin pump
acetaminophen 500 mg Capsule
1,000 mg PO QID PRN (Reason: pain)
Referrals:
Finesse Mccullough DO [Family Provider, Family Practice]
Interventions
Interventions:
*Risk Screen - Suicide Last Done: 12/05/24 05:37
*General Assessment Last Done: 12/05/24 05:37
*Neglect/Abuse Screening Last Done: 12/05/24 05:37
*ED- Fall Risk Assessment Last Done: 12/05/24 05:37
*ED COVID-19 Vaccine History Last Done: 12/05/24 05:37
*ED Influenza Vaccine History Last Done: 12/05/24 05:37
VK-Mkrbrs-Vlzjvcfpvw Assessment Last Done: 12/05/24 05:40
Discharge Date and Time
Print Language: JORDANIAN
[2024-12-05 07:30] VITALS: BP 177/89
[2024-12-05] MEDS: ULTRAM 50 MG PO (08:53)
== END 2024-12-05 10:53 | disposition home or self-care (01) ==
LOC: EMR 05:16
PROVIDERS: Emergency Medicine; EMERGENCY PHYSICIAN Student in an Organized Health Care Education/Training Program; FAMILY PHYSICIAN Family Medicine
DX: R51.9 Headache, unspecified (principal); R11.10 Vomiting, unspecified; R10.9 Unspecified abdominal pain; E11.22 Type 2 diabetes mellitus with diabetic chronic kidney disease; I12.9 Hypertensive chronic kidney disease with stage 1 through stage 4 chronic kidney disease, or unspecified chronic kidney disease; N18.9 Chronic kidney disease, unspecified; I48.91 Unspecified atrial fibrillation; Z79.4 Long term (current) use of insulin; Z87.891 Personal history of nicotine dependence; Z98.1 Arthrodesis status; Z87.81 Personal history of (healed) traumatic fracture
CPT/HCPCS: 99284; 70450; 74177; 80053; 81003; 81015; 85025; 87086; Q9967

== ENCOUNTER 2024-12-07 11:16 | Emergency (ER) | payer MEDICARE, SELFPAY ==
[2024-12-07 11:20] VITALS: BP 255/86
[2024-12-07 11:23] VITALS: BMI 22.3
[2024-12-07 11:43] LABS: Hematocrit 40.5 % (39.0-52.0); Hemoglobin 13.7 g/dL (13.0-18.0); Mean Corp Hgb Conc. 33.8 g/dL (33.0-37.0); Mean Corpuscular Volume 96.7 fL (80.0-94.0); Nucleated Red Blood Cells % 0 % (-); Platelet Count 304 10^3/uL (130-400); Red Cell Dist. Width 13.8 % (11.5-14.5)
[2024-12-07 11:57] LABS: ALT (SGPT) 18 U/L (0-50); AST (SGOT) 20 U/L (17-59); Albumin 4.4 g/dl (3.5-5.0); Alkaline Phosphatase 119 U/L (38-126); Blood Urea Nitrogen 26 mg/dl (9-20); Calcium 9.9 mg/dl (8.4-10.2); Carbon Dioxide 30 mmol/L (22-30); Chloride 102 mmol/L (98-107); Estimated Creatinine Clearance 34 ml/min; Glucose 154 mg/dl (70-99); Lipase 65 U/L (23-300); Potassium 4.6 mmol/L (3.5-5.1); Sodium 140 mmol/L (135-145); Total Protein 7.3 g/dl (6.3-8.2); eGFR 37.82
[2024-12-07 12:00] VITALS: BP 205/76
--- NOTE | 2024-12-07 12:40 | ED.GENMED ---
History of Present Illness
General
Chief Complaint: Abdominal Symptoms
Time Seen by Provider: 12/07/24 12:40
History of Present Illness
History of Present Illness:
FOCUSED PAST MEDICAL HISTORY
- Spinal cord injury 2006, CKD, IDDM, legally blind
REVIEW OF OLD RECORDS
- The patient was seen here 2 days ago after a fall which was not typical for him. He apparently had been at [facility] for balance issues and there was consideration of NPH versus Parkinson's. He fell last week and was seen at [place] and
had a left clavicular fracture he had a headache when he was here 2 days ago. His blood pressure was also elevated in the ED last time and was given irbesartan. CAT scan of the abdomen and pelvis 2 days ago showed questionable proctitis,
suggestion of cystitis, small left pleural effusion, subacute to chronic partially healed lateral right 9th and 10th rib fractures. CAT scan of the brain at that time was unremarkable.
Note:
CHIEF COMPLAINT(S)
The patient reports experiencing episodes of syncope.
HISTORY OF PRESENT ILLNESS
The patient is a 79-year-old male with a recent history of syncope. He states that he experienced a syncopal event this morning while he was in bed. The symptoms have persisted over the past two weeks. He has had encounters at five different
hospitals during this period. At one such visit, an MRI of the brain was performed about one to two weeks ago, which reportedly showed no abnormalities. The patient was previously seen in this emergency room recently and had undergone CT scans and
blood work, although the details of those results were not specified. The patient lives alone and his spouse previously visited the hospital today but has since left. He mentioned taking his blood pressure medication, irbesartan, this morning.
As the patient was somewhat of a poor historian, I spoke to the . 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
30 mL of spinal fluid on the next lumbar puncture. says he is also had a PET/CT and MRI which did show an increased amount of fluid. He has been having spasms more recently and has been having some trouble swallowing leading to coughing. He
is to see Dr. Nogueira this week related to his collarbone fracture.
ADDITIONAL HISTORY OBTAINED FROM SOURCES OTHER THAN THE PATIENT
The patients spouse was present earlier today but is no longer available for additional information.
EXTERNAL RECORDS REVIEWED
CT scans and blood work from a previous visit, as well as an MRI of the brain done approximately one week ago, were reviewed by multiple hospitals, with no significant abnormalities reported.
PHYSICAL EXAM
General: The patient appears generally weak and debilitated
Skin: Warm, dry.
Head: Normocephalic, atraumatic.
Neck: Supple, trachea midline.
Eye, Ears, Nose, Mouth, and Throat: Oral mucosa moist.
Cardiovascular: Normal peripheral perfusion, No edema.
Respiratory: Respirations are non-labored.
Gastrointestinal: Abdomen nondistended.
Back: Normal range of motion, Normal alignment.
Musculoskeletal: Normal range of motion, normal strength.
Neurological: Awake and alert but has trouble giving coherent information, impaired [id number] left greater than right, trouble following simple commands
Psychiatric: Impaired insight and judgment at times, impaired memory
PROBLEM LIST
Acute Problems:
- Syncope
PLAN
Administer a dose of blood pressure medication, irbesartan. Continue monitoring blood work results. Contact the patients spouse for additional information regarding his health status and possible coordination of follow-up care.
DIFFERENTIAL DIAGNOSIS
The Differential Diagnosis includes, in no particular order and is not limited to:
1. Orthostatic hypotension
2. Cardiac arrhythmia
3. Transient ischemic attack
4. Vasovagal syncope
5. Medication-related hypotension
6. Dehydration
7. Electrolyte imbalance
8. Neurologic event
9. Seizure
10. Cardiogenic syncope
EKG
- Sinus 97, normal axis, nonspecific ST abnormality, PVC
LABS
- White count normal, hemoglobin 13.7, creatinine 1.8 which is near baseline yet
UPDATE
-SUMMARY OF ENCOUNTER
The patient, a 79-year-old male, presented to the emergency department with a recent history of syncope. During this visit, he reported an issue with bringing up some blood. His hemoglobin level, upon evaluation, was noted to be even higher than
before, remaining within normal limits. A review of the patients BUN level, a kidney function test that often increases with upper GI bleeding, showed it was lower than past readings, indicating no signs of significant bleeding. A stool examination
was conducted, revealing normal brown stool with negative chemical testing for bleeding. Considering these findings, no immediate imaging like a CT scan was deemed necessary, though the situation was discussed and reviewed with the on-call GI doctor.
PLAN
Monitor the patients condition and continue to assess any indications of bleeding. Reach out to the GI doctor for further evaluation and possible coordination of care. Provide the patient with the GI doctors contact information, and initiate
follow-up discussions to evaluate the need for further gastrointestinal studies, such as an endoscopy, considering the history of bringing up blood.
INDEPENDENT REVIEW OF LABS AND INTERPRETATION OF TESTS
My independent review of hemoglobin levels indicates they are higher than before, within normal limits. BUN levels, related to kidney function, are actually lower than they were previously, indicating no signs suggestive of upper GI bleeding.
MEDICAL DECISION MAKING
-Complexity of Data Reviewed: Chronic conditions affecting care - syncope.
Data:
Category 2
- I reviewed the patients hemoglobin and BUN levels and found them to be normal and not suggestive of active bleeding.
Category 3
- I discussed the management of the patients care with the on-call GI doctor regarding the necessity of further evaluation for gastrointestinal bleeding.
-Risk:
Prescription drug management was evaluated, and no new prescriptions were provided. However, given potential syncope causes and the patients age, continued monitoring and consideration for further evaluation is necessary.
DIAGNOSIS
Syncope - R55
Observation of Gastrointestinal Bleeding, likely resolved - K92.1
I spoke to the extensively. The patient has ongoing neurologic concerns which are not new and have been ongoing for about a year already receiving neurologic evaluation as outpatient. was concerned about recurrence of
hematemesis/coffee-ground emesis. No clear indication for admission to the hospital. Hemoglobin is improved. He was markedly hypertensive upon arrival and we gave his blood pressure medication here that he did not take this morning. I also
discussed case with GI. Dr. Bolden recommends outpatient follow-up.
Past History
Past History
ED Past Medical History: HTN, IDDM, Other (2006: Spinal cord injury, fall during hypoglycemic episode, fracture C spine, paralyzed for short time, had to learn to walk again. Vitrectomy, kidney disease, hepatitis,) and Other (Hernia,)
ED Past Surgical History: Other (hand surgery, c spine fusion, lumbar laminectomy)
Social History
Tobacco: Former smoker
Alcohol: Daily ( wine 1 glass and Martini 1 glass)
Drug: None
Personal:
Living: with family
Phy Exam
Physical Exam
Physical Exam:
See HPI
Course
Orders/Labs/Results
Orders:
Orders
12/07/24 11:22
Complete Blood Count/With Diff Urgent
Comprehensive Metabolic Panel Urgent
Lipase Urgent
12/07/24 11:23
Electrocardiogram (*1) Urgent
Reason for Study: Hypertension, Benign
EKG- Treatment ONCE
12/07/24 12:55
Irbesartan [Avapro] 150 mg PO NOW STA
12/07/24 13:03
Irbesartan [Avapro] 150 mg PO NOW STA
Abnormal Lab Results
12/07/24
11:22
RBC 4.19 L 10^6/uL
(4.70-6.10)
MCV 96.7 H fL
(80.0-94.0)
MCH 32.7 H pg
(27.0-31.0)
Abs Immat Gran (auto) 0.1 H 10^3/uL
(0-0.05)
Absolute Neuts (auto) 6.6 H 10^3/uL
(1.4-6.5)
Absolute Lymphs (auto) 0.6 L 10^3/uL
(1.2-3.4)
Immature Gran % 0.6 H %
(0-0.5)
Neutrophils % 83.3 H %
(42.2-75.2)
Lymphocytes % 7.4 L %
(20.5-51.1)
BUN 26 H mg/dl
(9-20)
Creatinine 1.8 H mg/dL
(0.7-1.3)
Glucose 154 H mg/dl
(70-99)
12/07/24 11:22
12/07/24 11:22
Vital Signs
Initial and Last Documented VS:
Initial Vital Signs
BP
255/86
12/07/24 11:20
Last Documented Vital Signs
Temp Pulse Resp BP Pulse Ox
37.1 C 92 16 204/91 100
12/07/24 11:31 12/07/24 13:00 12/07/24 13:00 12/07/24 13:23 12/07/24 13:00
*Pulse Oximetry
SaO2: 98
Patient hypoxic: no
*Critical Care Note
Total Time (30-74mins, 75-104mins- exclusive of procedures): Not Applicable
ED Attending Note
-
Portions of this chart may have been created with voice recognition software.� Occasional wrong word or��sound alike� substitutions may have occurred due to the inherent limitations of voice recognition software.
Discharge Plan
Departure
Patient Disposition: Home (Routine Discharge)
Date of Disposition: 12/07/24
Time of Disposition: 13:51
Patient with high blood pressure during this ER visit?: Yes
Discharge Problem:
Hematemesis
Instructions: GI bleed (DC), BLOOD PRESSURE
Prescriptions:
No Action
atorvastatin 10 MG tablet
10 mg PO DAILY
albuterol sulfate 1 PUFF HFA aerosol inhaler
2 puff inhalation R Q4HPRN PRN (Reason: SOB)
Insulin Pump [Patient's Own Insulin Pump:] 1 UNITS Pump.Resvr
0 ea SC .CONTINUOUS
Patient Comments:
PT USES humalog
tramadol 50 mg tablet
50 mg PO TIDPRN PRN (Reason: severe pains)
irbesartan 75 mg tablet
75 mg PO DAILY
venlafaxine 37.5 mg capsule,extended release 24hr
37.5 mg PO DAILY
cyanocobalamin (vitamin B-12) 1,000 mcg tablet
1,000 mcg PO DAILY
thiamine HCl (vitamin B1) 100 mg tablet
100 mg PO DAILY
nortriptyline 10 mg capsule
10 mg PO BID
insulin lispro [Humalog U-100 Insulin] 100 unit/mL solution
See Rx Instructions .ROUTE .COMPLEX
Rx Instructions:
use with patient's own insulin pump
acetaminophen 500 mg Capsule
1,000 mg PO QID PRN (Reason: pain)
Referrals:
Oskar Bolden MD [Active, Gastroenterology]
Finesse Mccullough DO [Family Provider, [facility]]
Activity Restrictions/Additional Instructions:
Your white blood cell count and hemoglobin levels are both normal. Chronic kidney disease is noted now with a creatinine of 1.8. Other abdominal labs are normal including liver and pancreas numbers. EKG is unremarkable. I recommend against
continued use of tramadol. Tylenol would be safer for pain. I did speak to GI who agrees with outpatient follow-up. I am given you the contact permission for Dr. Bolden. Continue your blood pressure medication.
Interventions
Interventions:
*Risk Screen - Suicide Last Done: 12/07/24 11:23
*General Assessment Last Done: 12/07/24 11:23
*Neglect/Abuse Screening Last Done: 12/07/24 11:23
*ED- Fall Risk Assessment Last Done: 12/07/24 11:23
*ED COVID-19 Vaccine History Last Done: 12/07/24 11:23
*ED Influenza Vaccine History Last Done: 12/07/24 11:23
XB-Vegqmo-Jduqeijvuh Assessment Last Done: 12/07/24 11:23
Discharge Date and Time
Print Language: [id number]
[2024-12-07 13:00] VITALS: BP 204/91
[2024-12-07] MEDS: AVAPRO 150 MG PO (13:23)
[2024-12-07 14:21] VITALS: BP 194/96
== END 2024-12-07 15:13 | disposition home or self-care (01) ==
LOC: EMR 11:16
PROVIDERS: EMERGENCY PHYSICIAN Emergency Medicine; FAMILY PHYSICIAN Family Medicine
DX: K92.0 Hematemesis (principal); R55 Syncope and collapse; E11.22 Type 2 diabetes mellitus with diabetic chronic kidney disease; I12.9 Hypertensive chronic kidney disease with stage 1 through stage 4 chronic kidney disease, or unspecified chronic kidney disease; N18.9 Chronic kidney disease, unspecified; I1A.0 Resistant hypertension; H54.8 Legal blindness, as defined in USA; Z87.891 Personal history of nicotine dependence; Z98.1 Arthrodesis status
CPT/HCPCS: 99284; 80053; 83690; 85025; 93005

== ENCOUNTER 2024-12-10 18:01 | Inpatient (IN) | payer MEDICARE, SELFPAY ==
[2024-12-08] VITALS (7 sets, daily range): BP systolic 173–217; BP diastolic 76–99; BMI 21.8
--- NOTE | 2024-12-08 17:55 | ED.MUSCINJ ---
HPI-Injury
<LUZ ELENA Duran Last Filed: 12/08/24 20:04>
General
Chief Complaint: Fall
Source: patient
Exam Limitations: none
Time Seen by Provider: 12/08/24 17:37
History of Present Illness-Injury
Initial Injury comments:
79-year-old male currently being worked up for Parkinson's presents from home after a fall today. Has been falling frequently. He lives at home with his . He is not anticoagulated. He hit the back of his head when he fell today. No loss
conscious. He has a known left clavicle fracture. He also notes some ongoing hip pain since before the fall. No other complaints
Past History
<LUZ ELENA Duran Last Filed: 12/08/24 20:04>
Past History
ED Past Medical History: HTN, IDDM, Other (2006: Spinal cord injury, fall during hypoglycemic episode, fracture C spine, paralyzed for short time, had to learn to walk again. Vitrectomy, kidney disease, hepatitis,) and Other (Hernia,)
ED Past Surgical History: Other (hand surgery, c spine fusion, lumbar laminectomy)
Social History
Tobacco: Former smoker
Alcohol: Daily ( wine 1 glass and Martini 1 glass)
Drug: None
Personal:
Living: with family
Phy Exam
<LUZ ELENA Duran Last Filed: 12/08/24 20:04>
Physical Exam
Physical Exam:
General: Well-appearing male no acute respiratory distress
HEENT: Normal cephalic atraumatic
Heart: Regular rate and rhythm
Lungs: Clear no wheeze
Musculoskeletal exam: The spine is nontender. Good range of motion to the lower extremities without deformity
Neurologic exam: Alert conversing appropriately
Injury Course
<LUZ ELENA Duran Last Filed: 12/08/24 20:04>
Orders/Labs/Results
Orders:
Orders
12/08/24 17:53
CT Head W/o Iv Contrast Urgent
Comment:
Reason For Exam: fall
CR Pelvis - 1 Or 2 Views Urgent
Comment:
Reason For Exam: fall
12/08/24 18:04
Acetaminophen [Tylenol] 650 mg PO NOW STA
12/09/24
DIETARY IP CONSULT Routine
Reason for Consult: poor appetite
Diabetes Education Consult Routine
Reason for Consult: Monitor Instruction
Other reason for consult: Insulin pump to left abdomen
Newly Diagnosed?: No
12/09/24 00:15
Straight cath- Treatment ONCE
12/09/24 00:30
CT Head W/o Iv Contrast Urgent
Comment:
Reason For Exam: subdural
12/09/24 01:27
Morphine Sulfate 4 mg .ROUTE .STK-MED ONE
12/09/24 01:34
Morphine Sulfate 4 mg IV NOW STA
12/09/24 04:07
Mg Placement- Treatment ONCE
Reason for insertion: Acute Retention
12/09/24 04:35
CR Hip - RT w/wo Pel 2-3 Vw* Urgent
Comment:
Reason For Exam: hip pain
Include a pelvis x-ray?: No
12/09/24 07:02
Case Management Consult ONCE
Case Management Consult: Discharge Planning
Pt Eval And Treat Urgent
Activity Level: Out of Bed-Early Mobility
12/09/24 08:15
Complete Blood Count/With Diff Urgent
Comprehensive Metabolic Panel Urgent
Creatine Phosphokinase Urgent
Glycohemoglobin (HgbA1c) Urgent
Urinalysis Reflex To Culture Urgent
Date Specimen was Collected: 12/09/24
Time Specimen was Collected: 08:06
Urine Microscopic Reflex Cult Urgent
Vitamin B12 Routine
Comment: ADD ON
12/09/24 Lunch
Cholesterol Lowering
At Your Request: Limited Participation
Cholesterol Lowering: Sodium, 2 Gram
1999 CHO Diabetic
12/09/24 11:33
Admit/Transfer Patient As Directed
Co-Sign Provider:
Level of Care: Observation services
Assign to:: Medical/Surgical
Physician / Group: Dr. Marc Phillips/Hospitalists
Diagnosis: Falls
12/09/24 11:35
Code Status As Directed
Resuscitation Status: Full Code
12/09/24 11:48
Albuterol [ProAIR HFA INHALER] 2 puff INH R Q4HPRN PRN SOB
Atorvastatin [Lipitor] 10 mg PO DAILY
Bisacodyl [Dulcolax] 10 mg RECTAL [id number] PRN
Docusate W/Senna [Senokot-S] 1 tablet PO BIDPRN PRN
Polyethylene Glycol Powder [Miralax] 17 grams PO DAILYPRN PRN
Tramadol HCl [Ultram] 50 mg PO TIDPRN PRN severe pain
12/09/24 11:48
Activity As Directed
Activity Level: As Tolerated
Intake/ Output As Directed
Frequency: q12h
Neurological Checks As Directed
Frequency: q4h
Pneumatic Compression Sleeves As Directed
Type: Knee high
Vital Signs As Directed
Frequency: Per unit guidelines
Weight As Directed
Frequency: Daily
DX Deep Vein Thrombosis Video Routine
12/09/24 12:00
Venlafaxine Extended Release [Effexor Xr] 37.5 mg PO DAILY
12/09/24 12:13
Acetaminophen [Tylenol] 1,000 mg PO QID PRN
12/09/24 12:54
Insulin Pump [Patient's Own Insulin Pump] See Dose Instructions SC PRN PRN
12/09/24 13:00
Heparin 5,000 units SC Q8
Nortriptyline [Pamelor] 10 mg PO DAILY
Thiamine HCl [Vitamin B1] 100 mg PO DAILY
12/09/24 14:00
Irbesartan [Avapro] 75 mg PO DAILY
12/09/24 14:04
Pt Screening Request from [facility] Routine
Speech Screening from [facility] Routine
12/09/24 15:29
Add On- LAB Routine
Comments:: please add A1C on to AM labs. Thank you
Tests Added?: A1C
12/09/24 16:30
Insulin Pump [Patient's Own Insulin Pump] See Dose Instructions SC ACHS
12/09/24 16:51
Diabetes Management by Nurse Practitioner Routine
Consulting Provider: Mer Connell
Was provider already notified?: Yes
Reason for Consult: Insulin Management
12/09/24 17:41
Bladder Scan As Directed
Follow Bladder Retention/Intermittent Cath Algorithm?: Yes
PRN if no void in __ hours: 6
Frequency: Per Retention Algorithm
If Bladder Scan Result >: 400
then:: Straight cath
Straight Cath As Directed
Frequency: Per Retention Algorithm
Additional Instructions: straight cath as needed per acute urinary retention algorithm for 24 hrs
Additional Instructions: for bladder scan greater than 400 mL
12/09/24 17:59
Transfer Patient As Directed
Transfer to: Telemetry
Reason for Telemetry: Arrhythmia
Date to Stop Telemetry: 12/12/24
Time to Stop Telemetry: 11:00
12/09/24 18:20
Multivitamin [Theragran] 1 tablet PO DAILY
12/09/24 20:48
Metoprolol [Lopressor] 5 mg IV NOW STA
12/09/24 22:49
HydrALAZINE [Apresoline] 10 mg IV NOW STA
12/10/24 00:44
Metoprolol [Lopressor] 5 mg IV NOW STA
12/10/24 02:59
HydrALAZINE [Apresoline] 5 mg IV Q4HPRN PRN
12/10/24 03:04
HydrALAZINE [Apresoline] 5 mg IV NOW STA
12/10/24 07:52
Complete Blood Count/No Diff IN AM
12/10/24 08:00
Cyanocobalamin [Vitamin B-12] 1,000 mcg PO DAILY
Heparin 5,000 units SC Q8
12/10/24 08:57
Basic Metabolic Panel Routine
Hepatitis C Antibody Routine
Magnesium Routine
Phosphorus Routine
12/10/24 10:20
CARDIOLOGY CONSULT Routine
Consulting Provider: Roberto Mathews
Was physician already notified: Yes
Reason for consult: requests cardio consult for severe HTN,orthostatic hypotension history
12/10/24 10:23
CR Clavicle - Left Complete Routine
Comment: Checking for healing of left clavicle fracture
Reason For Exam: H/o left clavicular fracture
12/10/24 11:00
Amlodipine [Norvasc] 2.5 mg PO BID
12/10/24 13:01
Insulin Aspart Pen [Novolog Flexpen] 2 units SC NOW STA
12/10/24 13:34
Occupational Therapy Consult [Ot Eval And Treat] Routine
Treatment: Recommended by PT/Awareid LAZCANO signature
12/10/24 16:30
Insulin Aspart Pen [Novolog Flexpen] 2 units SC AC
12/10/24 17:39
Echo 2D MMode Color/Doppler Routine
Reason for Study: Falls and spasms -- check Echo as per Dr. Mathews
12/10/24 20:00
Amlodipine [Norvasc] 5 mg PO BID
12/10/24 22:00
Verapamil [Isoptin] 40 mg PO TID
12/11/24 06:00
Basic Metabolic Panel IN AM
Complete Blood Count/No Diff IN AM
12/12/24 06:00
Basic Metabolic Panel IN AM
Complete Blood Count/No Diff IN AM
12/12/24 11:00
DC Protocol for Telemetry ONCE
12/13/24 06:00
Basic Metabolic Panel IN AM
Complete Blood Count/No Diff IN AM
Abnormal Lab Results
12/09/24 12/09/24 12/09/24
07:47 08:15 15:57
RBC 4.08 L 10^6/uL
(4.70-6.10)
Hct 38.4 L %
(39.0-52.0)
MCV 94.1 H fL
(80.0-94.0)
MCH 32.8 H pg
(27.0-31.0)
MCHC
Abs Immat Gran (auto) 0.1 H 10^3/uL
(0-0.05)
Absolute Neuts (auto) 6.8 H 10^3/uL
(1.4-6.5)
Absolute Lymphs (auto) 0.8 L 10^3/uL
(1.2-3.4)
Absolute Monos (auto) 0.9 H 10^3/uL
(0.1-0.6)
Immature Gran % 0.6 H %
(0-0.5)
Neutrophils % 79.6 H %
(42.2-75.2)
Lymphocytes % 9.2 L %
(20.5-51.1)
Monocytes % 10.2 H %
(1.7-9.3)
BUN 32 H mg/dl
(9-20)
Creatinine 2.0 H mg/dL
(0.7-1.3)
Glucose 101 H mg/dl
(70-99)
Hemoglobin A1c 6.9 H %
(4.0-5.9)
Phosphorus
Vitamin B12 995 H pg/ml
(239-931)
Urine Ketones 1+ A
(Negative)
Ur Occult Blood Reflex 1+ A
(Negative)
Urine Bacteria (Reflex) Few A
(Negative)
Urine Albumin (Reflex) 3+ A
(Neg - Trace)
POC Glucose 112 H mg/dl 104 H mg/dl
() ()
12/09/24 12/10/24 12/10/24
22:03 07:52 08:13
RBC 4.17 L 10^6/uL
(4.70-6.10)
Hct
MCV 99.3 H fL
(80.0-94.0)
MCH 32.1 H pg
(27.0-31.0)
MCHC 32.4 L g/dL
(33.0-37.0)
Abs Immat Gran (auto)
Absolute Neuts (auto)
Absolute Lymphs (auto)
Absolute Monos (auto)
Immature Gran %
Neutrophils %
Lymphocytes %
Monocytes %
BUN
Creatinine
Glucose
Hemoglobin A1c
Phosphorus
Vitamin B12
Urine Ketones
Ur Occult Blood Reflex
Urine Bacteria (Reflex)
Urine Albumin (Reflex)
POC Glucose 107 H mg/dl 108 H mg/dl
() ()
12/10/24 12/10/24 12/10/24
08:57 12:29 17:40
RBC
Hct
MCV
MCH
MCHC
Abs Immat Gran (auto)
Absolute Neuts (auto)
Absolute Lymphs (auto)
Absolute Monos (auto)
Immature Gran %
Neutrophils %
Lymphocytes %
Monocytes %
BUN 28 H mg/dl
(9-20)
Creatinine 1.7 H mg/dL
(0.7-1.3)
Glucose 111 H mg/dl
(70-99)
Hemoglobin A1c
Phosphorus 4.7 H mg/dl
(2.5-4.5)
Vitamin B12
Urine Ketones
Ur Occult Blood Reflex
Urine Bacteria (Reflex)
Urine Albumin (Reflex)
POC Glucose 368 H mg/dl 221 H mg/dl
(70-99) (70-99)
12/10/24 07:52
12/10/24 08:57
<Sheng Soni, DO - Last Filed: 12/08/24 21:42>
Orders/Labs/Results
Orders:
Orders
12/08/24 17:53
CT Head W/o Iv Contrast Urgent
Comment:
Reason For Exam: fall
CR Pelvis - 1 Or 2 Views Urgent
Comment:
Reason For Exam: fall
12/08/24 18:04
Acetaminophen [Tylenol] 650 mg PO NOW STA
12/09/24
DIETARY IP CONSULT Routine
Reason for Consult: poor appetite
Diabetes Education Consult Routine
Reason for Consult: Monitor Instruction
Other reason for consult: Insulin pump to left abdomen
Newly Diagnosed?: No
12/09/24 00:15
Straight cath- Treatment ONCE
12/09/24 00:30
CT Head W/o Iv Contrast Urgent
Comment:
Reason For Exam: subdural
12/09/24 01:27
Morphine Sulfate 4 mg .ROUTE .STK-MED ONE
12/09/24 01:34
Morphine Sulfate 4 mg IV NOW STA
12/09/24 04:07
Mg Placement- Treatment ONCE
Reason for insertion: Acute Retention
12/09/24 04:35
CR Hip - RT w/wo Pel 2-3 Vw* Urgent
Comment:
Reason For Exam: hip pain
Include a pelvis x-ray?: No
12/09/24 07:02
Case Management Consult ONCE
Case Management Consult: Discharge Planning
Pt Eval And Treat Urgent
Activity Level: Out of Bed-Early Mobility
12/09/24 08:15
Complete Blood Count/With Diff Urgent
Comprehensive Metabolic Panel Urgent
Creatine Phosphokinase Urgent
Glycohemoglobin (HgbA1c) Urgent
Urinalysis Reflex To Culture Urgent
Date Specimen was Collected: 12/09/24
Time Specimen was Collected: 08:06
Urine Microscopic Reflex Cult Urgent
Vitamin B12 Routine
Comment: ADD ON
12/09/24 Lunch
Cholesterol Lowering
At Your Request: Limited Participation
Cholesterol Lowering: Sodium, 2 Gram
1999 eduin/17 CHO Diabetic
12/09/24 11:33
Admit/Transfer Patient As Directed
Co-Sign Provider:
Level of Care: Observation services
Assign to:: Medical/Surgical
Physician / Group: Dr. Marc Phillips/Hospitalists
Diagnosis: Falls
12/09/24 11:35
Code Status As Directed
Resuscitation Status: Full Code
12/09/24 11:48
Albuterol [ProAIR HFA INHALER] 2 puff INH R Q4HPRN PRN SOB
Atorvastatin [Lipitor] 10 mg PO DAILY
Bisacodyl [Dulcolax] 10 mg RECTAL [id number] PRN
Docusate W/Senna [Senokot-S] 1 tablet PO BIDPRN PRN
Polyethylene Glycol Powder [Miralax] 17 grams PO DAILYPRN PRN
Tramadol HCl [Ultram] 50 mg PO TIDPRN PRN severe pain
12/09/24 11:48
Activity As Directed
Activity Level: As Tolerated
Intake/ Output As Directed
Frequency: q12h
Neurological Checks As Directed
Frequency: q4h
Pneumatic Compression Sleeves As Directed
Type: Knee high
Vital Signs As Directed
Frequency: Per unit guidelines
Weight As Directed
Frequency: Daily
DX Deep Vein Thrombosis Video Routine
12/09/24 12:00
Venlafaxine Extended Release [Effexor Xr] 37.5 mg PO DAILY
12/09/24 12:13
Acetaminophen [Tylenol] 1,000 mg PO QID PRN
12/09/24 12:54
Insulin Pump [Patient's Own Insulin Pump] See Dose Instructions SC PRN PRN
12/09/24 13:00
Heparin 5,000 units SC Q8
Nortriptyline [Pamelor] 10 mg PO DAILY
Thiamine HCl [Vitamin B1] 100 mg PO DAILY
12/09/24 14:00
Irbesartan [Avapro] 75 mg PO DAILY
12/09/24 14:04
Pt Screening Request from [facility] Routine
Speech Screening from [facility] Routine
12/09/24 15:29
Add On- LAB Routine
Comments:: please add A1C on to AM labs. Thank you
Tests Added?: A1C
12/09/24 16:30
Insulin Pump [Patient's Own Insulin Pump] See Dose Instructions SC ACHS
12/09/24 16:51
Diabetes Management by Nurse Practitioner Routine
Consulting Provider: Douse,Mer
Was provider already notified?: Yes
Reason for Consult: Insulin Management
12/09/24 17:41
Bladder Scan As Directed
Follow Bladder Retention/Intermittent Cath Algorithm?: Yes
PRN if no void in __ hours: 6
Frequency: Per Retention Algorithm
If Bladder Scan Result >: 400
then:: Straight cath
Straight Cath As Directed
Frequency: Per Retention Algorithm
Additional Instructions: straight cath as needed per acute urinary retention algorithm for 24 hrs
Additional Instructions: for bladder scan greater than 400 mL
12/09/24 17:59
Transfer Patient As Directed
Transfer to: Telemetry
Reason for Telemetry: Arrhythmia
Date to Stop Telemetry: 12/12/24
Time to Stop Telemetry: 11:00
12/09/24 18:20
Multivitamin [Theragran] 1 tablet PO DAILY
12/09/24 20:48
Metoprolol [Lopressor] 5 mg IV NOW STA
12/09/24 22:49
HydrALAZINE [Apresoline] 10 mg IV NOW STA
12/10/24 00:44
Metoprolol [Lopressor] 5 mg IV NOW STA
12/10/24 02:59
HydrALAZINE [Apresoline] 5 mg IV Q4HPRN PRN
12/10/24 03:04
HydrALAZINE [Apresoline] 5 mg IV NOW STA
12/10/24 07:52
Complete Blood Count/No Diff IN AM
12/10/24 08:00
Cyanocobalamin [Vitamin B-12] 1,000 mcg PO DAILY
Heparin 5,000 units SC Q8
12/10/24 08:57
Basic Metabolic Panel Routine
Hepatitis C Antibody Routine
Magnesium Routine
Phosphorus Routine
12/10/24 10:20
CARDIOLOGY CONSULT Routine
Consulting Provider: Roberto Mathews
Was physician already notified: Yes
Reason for consult: requests cardio consult for severe HTN,orthostatic hypotension history
12/10/24 10:23
CR Clavicle - Left Complete Routine
Comment: Checking for healing of left clavicle fracture
Reason For Exam: H/o left clavicular fracture
12/10/24 11:00
Amlodipine [Norvasc] 2.5 mg PO BID
12/10/24 13:01
Insulin Aspart Pen [Novolog Flexpen] 2 units SC NOW STA
12/10/24 13:34
Occupational Therapy Consult [Ot Eval And Treat] Routine
Treatment: Recommended by PT/Await MD signature
12/10/24 16:30
Insulin Aspart Pen [Novolog Flexpen] 2 units SC AC
12/10/24 17:39
Echo 2D MMode Color/Doppler Routine
Reason for Study: Falls and spasms -- check Echo as per Dr. Mathews
12/10/24 20:00
Amlodipine [Norvasc] 5 mg PO BID
12/10/24 22:00
Verapamil [Isoptin] 40 mg PO TID
12/11/24 06:00
Basic Metabolic Panel IN AM
Complete Blood Count/No Diff IN AM
12/12/24 06:00
Basic Metabolic Panel IN AM
Complete Blood Count/No Diff IN AM
12/12/24 11:00
DC Protocol for Telemetry ONCE
12/13/24 06:00
Basic Metabolic Panel IN AM
Complete Blood Count/No Diff IN AM
Abnormal Lab Results
12/09/24 12/09/24 12/09/24
07:47 08:15 15:57
RBC 4.08 L 10^6/uL
(4.70-6.10)
Hct 38.4 L %
(39.0-52.0)
MCV 94.1 H fL
(80.0-94.0)
MCH 32.8 H pg
(27.0-31.0)
MCHC
Abs Immat Gran (auto) 0.1 H 10^3/uL
(0-0.05)
Absolute Neuts (auto) 6.8 H 10^3/uL
(1.4-6.5)
Absolute Lymphs (auto) 0.8 L 10^3/uL
(1.2-3.4)
Absolute Monos (auto) 0.9 H 10^3/uL
(0.1-0.6)
Immature Gran % 0.6 H %
(0-0.5)
Neutrophils % 79.6 H %
(42.2-75.2)
Lymphocytes % 9.2 L %
(20.5-51.1)
Monocytes % 10.2 H %
(1.7-9.3)
BUN 32 H mg/dl
(9-20)
Creatinine 2.0 H mg/dL
(0.7-1.3)
Glucose 101 H mg/dl
(70-99)
Hemoglobin A1c 6.9 H %
(4.0-5.9)
Phosphorus
Vitamin B12 995 H pg/ml
(239-931)
Urine Ketones 1+ A
(Negative)
Ur Occult Blood Reflex 1+ A
(Negative)
Urine Bacteria (Reflex) Few A
(Negative)
Urine Albumin (Reflex) 3+ A
(Neg - Trace)
POC Glucose 112 H mg/dl 104 H mg/dl
(70-99) (70-99)
12/09/24 12/10/24 12/10/24
22:03 07:52 08:13
RBC 4.17 L 10^6/uL
(4.70-6.10)
Hct
MCV 99.3 H fL
(80.0-94.0)
MCH 32.1 H pg
(27.0-31.0)
MCHC 32.4 L g/dL
(33.0-37.0)
Abs Immat Gran (auto)
Absolute Neuts (auto)
Absolute Lymphs (auto)
Absolute Monos (auto)
Immature Gran %
Neutrophils %
Lymphocytes %
Monocytes %
BUN
Creatinine
Glucose
Hemoglobin A1c
Phosphorus
Vitamin B12
Urine Ketones
Ur Occult Blood Reflex
Urine Bacteria (Reflex)
Urine Albumin (Reflex)
POC Glucose 107 H mg/dl 108 H mg/dl
(99) (70-99)
12/10/24 12/10/24 12/10/24
08:57 12:29 17:40
RBC
Hct
MCV
MCH
MCHC
Abs Immat Gran (auto)
Absolute Neuts (auto)
Absolute Lymphs (auto)
Absolute Monos (auto)
Immature Gran %
Neutrophils %
Lymphocytes %
Monocytes %
BUN 28 H mg/dl
(9-20)
Creatinine 1.7 H mg/dL
(0.7-1.3)
Glucose 111 H mg/dl
(70-99)
Hemoglobin A1c
Phosphorus 4.7 H mg/dl
(2.5-4.5)
Vitamin B12
Urine Ketones
Ur Occult Blood Reflex
Urine Bacteria (Reflex)
Urine Albumin (Reflex)
POC Glucose 368 H mg/dl 221 H mg/dl
(70-99) (70-99)
12/10/24 07:52
12/10/24 08:57
<Solis Horton, DO - Last Filed: 12/10/24 22:06>
Orders/Labs/Results
Orders:
Orders
12/08/24 17:53
CT Head W/o Iv Contrast Urgent
Comment:
Reason For Exam: fall
CR Pelvis - 1 Or 2 Views Urgent
Comment:
Reason For Exam: fall
12/08/24 18:04
Acetaminophen [Tylenol] 650 mg PO NOW STA
12/09/24
DIETARY IP CONSULT Routine
Reason for Consult: poor appetite
Diabetes Education Consult Routine
Reason for Consult: Monitor Instruction
Other reason for consult: Insulin pump to left abdomen
Newly Diagnosed?: No
12/09/24 00:15
Straight cath- Treatment ONCE
12/09/24 00:30
CT Head W/o Iv Contrast Urgent
Comment:
Reason For Exam: subdural
12/09/24 01:27
Morphine Sulfate 4 mg .ROUTE .STK-MED ONE
12/09/24 01:34
Morphine Sulfate 4 mg IV NOW STA
12/09/24 04:07
Mg Placement- Treatment ONCE
Reason for insertion: Acute Retention
12/09/24 04:35
CR Hip - RT w/wo Pel 2-3 Vw* Urgent
Comment:
Reason For Exam: hip pain
Include a pelvis x-ray?: No
12/09/24 07:02
Case Management Consult ONCE
Case Management Consult: Discharge Planning
Pt Eval And Treat Urgent
Activity Level: Out of Bed-Early Mobility
12/09/24 08:15
Complete Blood Count/With Diff Urgent
Comprehensive Metabolic Panel Urgent
Creatine Phosphokinase Urgent
Glycohemoglobin (HgbA1c) Urgent
Urinalysis Reflex To Culture Urgent
Date Specimen was Collected: 12/09/24
Time Specimen was Collected: 08:06
Urine Microscopic Reflex Cult Urgent
Vitamin B12 Routine
Comment: ADD ON
12/09/24 Lunch
Cholesterol Lowering
At Your Request: Limited Participation
Cholesterol Lowering: Sodium, 2 Gram
1999 eduin/17 CHO Diabetic
12/09/24 11:33
Admit/Transfer Patient As Directed
Co-Sign Provider:
Level of Care: Observation services
Assign to:: Medical/Surgical
Physician / Group: Dr. Marc Phillips/Hospitalists
Diagnosis: Falls
12/09/24 11:35
Code Status As Directed
Resuscitation Status: Full Code
12/09/24 11:48
Albuterol [ProAIR HFA INHALER] 2 puff INH R Q4HPRN PRN SOB
Atorvastatin [Lipitor] 10 mg PO DAILY
Bisacodyl [Dulcolax] 10 mg RECTAL [id number] PRN
Docusate W/Senna [Senokot-S] 1 tablet PO BIDPRN PRN
Polyethylene Glycol Powder [Miralax] 17 grams PO DAILYPRN PRN
Tramadol HCl [Ultram] 50 mg PO TIDPRN PRN severe pain
12/09/24 11:48
Activity As Directed
Activity Level: As Tolerated
Intake/ Output As Directed
Frequency: q12h
Neurological Checks As Directed
Frequency: q4h
Pneumatic Compression Sleeves As Directed
Type: Knee high
Vital Signs As Directed
Frequency: Per unit guidelines
Weight As Directed
Frequency: Daily
DX Deep Vein Thrombosis Video Routine
12/09/24 12:00
Venlafaxine Extended Release [Effexor Xr] 37.5 mg PO DAILY
12/09/24 12:13
Acetaminophen [Tylenol] 1,000 mg PO QID PRN
12/09/24 12:54
Insulin Pump [Patient's Own Insulin Pump] See Dose Instructions SC PRN PRN
12/09/24 13:00
Heparin 5,000 units SC Q8
Nortriptyline [Pamelor] 10 mg PO DAILY
Thiamine HCl [Vitamin B1] 100 mg PO DAILY
12/09/24 14:00
Irbesartan [Avapro] 75 mg PO DAILY
12/09/24 14:04
Pt Screening Request from [facility] Routine
Speech Screening from [facility] Routine
12/09/24 15:29
Add On- LAB Routine
Comments:: please add A1C on to AM labs. Thank you
Tests Added?: A1C
12/09/24 16:30
Insulin Pump [Patient's Own Insulin Pump] See Dose Instructions SC ACHS
12/09/24 16:51
Diabetes Management by Nurse Practitioner Routine
Consulting Provider: Mer Connell
Was provider already notified?: Yes
Reason for Consult: Insulin Management
12/09/24 17:41
Bladder Scan As Directed
Follow Bladder Retention/Intermittent Cath Algorithm?: Yes
PRN if no void in __ hours: 6
Frequency: Per Retention Algorithm
If Bladder Scan Result >: 400
then:: Straight cath
Straight Cath As Directed
Frequency: Per Retention Algorithm
Additional Instructions: straight cath as needed per acute urinary retention algorithm for 24 hrs
Additional Instructions: for bladder scan greater than 400 mL
12/09/24 17:59
Transfer Patient As Directed
Transfer to: Telemetry
Reason for Telemetry: Arrhythmia
Date to Stop Telemetry: 12/12/24
Time to Stop Telemetry: 11:00
12/09/24 18:20
Multivitamin [Theragran] 1 tablet PO DAILY
12/09/24 20:48
Metoprolol [Lopressor] 5 mg IV NOW STA
12/09/24 22:49
HydrALAZINE [Apresoline] 10 mg IV NOW STA
12/10/24 00:44
Metoprolol [Lopressor] 5 mg IV NOW STA
12/10/24 02:59
HydrALAZINE [Apresoline] 5 mg IV Q4HPRN PRN
12/10/24 03:04
HydrALAZINE [Apresoline] 5 mg IV NOW STA
12/10/24 07:52
Complete Blood Count/No Diff IN AM
12/10/24 08:00
Cyanocobalamin [Vitamin B-12] 1,000 mcg PO DAILY
Heparin 5,000 units SC Q8
12/10/24 08:57
Basic Metabolic Panel Routine
Hepatitis C Antibody Routine
Magnesium Routine
Phosphorus Routine
12/10/24 10:20
CARDIOLOGY CONSULT Routine
Consulting Provider: Roberto Mahtews
Was physician already notified: Yes
Reason for consult: requests cardio consult for severe HTN,orthostatic hypotension history
12/10/24 10:23
CR Clavicle - Left Complete Routine
Comment: Checking for healing of left clavicle fracture
Reason For Exam: H/o left clavicular fracture
12/10/24 11:00
Amlodipine [Norvasc] 2.5 mg PO BID
12/10/24 13:01
Insulin Aspart Pen [Novolog Flexpen] 2 units SC NOW STA
12/10/24 13:34
Occupational Therapy Consult [Ot Eval And Treat] Routine
Treatment: Recommended by PT/Await MD signature
12/10/24 16:30
Insulin Aspart Pen [Novolog Flexpen] 2 units SC AC
12/10/24 17:39
Echo 2D MMode Color/Doppler Routine
Reason for Study: Falls and spasms -- check Echo as per Dr. Mathews
12/10/24 20:00
Amlodipine [Norvasc] 5 mg PO BID
12/10/24 22:00
Verapamil [Isoptin] 40 mg PO TID
12/11/24 06:00
Basic Metabolic Panel IN AM
Complete Blood Count/No Diff IN AM
12/12/24 06:00
Basic Metabolic Panel IN AM
Complete Blood Count/No Diff IN AM
12/12/24 11:00
DC Protocol for Telemetry ONCE
12/13/24 06:00
Basic Metabolic Panel IN AM
Complete Blood Count/No Diff IN AM
Abnormal Lab Results
12/09/24 12/09/24 12/09/24
07:47 08:15 15:57
RBC 4.08 L 10^6/uL
(4.70-6.10)
Hct 38.4 L %
(39.0-52.0)
MCV 94.1 H fL
(80.0-94.0)
MCH 32.8 H pg
(27.0-31.0)
MCHC
Abs Immat Gran (auto) 0.1 H 10^3/uL
(0-0.05)
Absolute Neuts (auto) 6.8 H 10^3/uL
(1.4-6.5)
Absolute Lymphs (auto) 0.8 L 10^3/uL
(1.2-3.4)
Absolute Monos (auto) 0.9 H 10^3/uL
(0.1-0.6)
Immature Gran % 0.6 H %
(0-0.5)
Neutrophils % 79.6 H %
(42.2-75.2)
Lymphocytes % 9.2 L %
(20.5-51.1)
Monocytes % 10.2 H %
(1.7-9.3)
BUN 32 H mg/dl
(9-20)
Creatinine 2.0 H mg/dL
(0.7-1.3)
Glucose 101 H mg/dl
(70-99)
Hemoglobin A1c 6.9 H %
(4.0-5.9)
Phosphorus
Vitamin B12 995 H pg/ml
(239-931)
Urine Ketones 1+ A
(Negative)
Ur Occult Blood Reflex 1+ A
(Negative)
Urine Bacteria (Reflex) Few A
(Negative)
Urine Albumin (Reflex) 3+ A
(Neg - Trace)
POC Glucose 112 H mg/dl 104 H mg/dl
(70-99) (70-99)
12/09/24 12/10/24 12/10/24
22:03 07:52 08:13
RBC 4.17 L 10^6/uL
(4.70-6.10)
Hct
MCV 99.3 H fL
(80.0-94.0)
MCH 32.1 H pg
(27.0-31.0)
MCHC 32.4 L g/dL
(33.0-37.0)
Abs Immat Gran (auto)
Absolute Neuts (auto)
Absolute Lymphs (auto)
Absolute Monos (auto)
Immature Gran %
Neutrophils %
Lymphocytes %
Monocytes %
BUN
Creatinine
Glucose
Hemoglobin A1c
Phosphorus
Vitamin B12
Urine Ketones
Ur Occult Blood Reflex
Urine Bacteria (Reflex)
Urine Albumin (Reflex)
POC Glucose 107 H mg/dl 108 H mg/dl
(-99) (70-99)
12/10/24 12/10/24 12/10/24
08:57 12:29 17:40
RBC
Hct
MCV
MCH
MCHC
Abs Immat Gran (auto)
Absolute Neuts (auto)
Absolute Lymphs (auto)
Absolute Monos (auto)
Immature Gran %
Neutrophils %
Lymphocytes %
Monocytes %
BUN 28 H mg/dl
(10-26)
Creatinine 1.7 H mg/dL
(0.7-1.3)
Glucose 111 H mg/dl
()
Hemoglobin A1c
Phosphorus 4.7 H mg/dl
(2.5-4.5)
Vitamin B12
Urine Ketones
Ur Occult Blood Reflex
Urine Bacteria (Reflex)
Urine Albumin (Reflex)
POC Glucose 368 H mg/dl 221 H mg/dl
(-) (-99)
12/10/24 07:52
12/10/24 08:57
Armandlt;Elvis Stack PA-C - Last Filed: 12/08/24 20:04>
MDM/Problems Addressed
Differential Diagnosis Includes:
Fall with head strike. Consider contusion versus fracture versus intracranial hemorrhage. Also has hip pain will get x-ray of the pelvis to evaluate for fracture.
Discussed falls with the patient's who was in the room. She wishes for him to go home as they have a visiting nurse visiting the house tomorrow for more help at home. Scans are negative here think this is reasonable
<Elvis Stack PA-C - Last Filed: 12/08/24 20:04>
*Pulse Oximetry
SaO2: 98
Oxygen Mode of Delivery: Room air
<Solis Horton DO - Last Filed: 12/10/24 22:06>
*Pulse Oximetry
Patient hypoxic: no
*Critical Care Note
Total Time (30-74mins, 75-104mins- exclusive of procedures): Not Applicable
<Elvis Stack PA-C - Last Filed: 12/08/24 20:04>
Update Note
Update Note:
Initial CT demonstrates small, 2.4 mm subdural hematoma in the right frontal space. Discussed with emergency room attending as well as neurosurgery, Dr. Gonzalez. Patient is not anticoagulated is neurologically intact. Discussed findings with
patient and his at bedside. Plan will be to repeat CT scan at 12:30 in the morning. If the subdural is stable patient wants to go home and he would be able to be safe for discharge. However if the subdural hematoma is larger he would need to
be transferred to [facility]. Case signed out
<Solis Horton DO - Last Filed: 12/10/24 22:06>
Update Note
Update Note:
Initial CT demonstrates small, 2.4 mm subdural hematoma in the right frontal space. Discussed with emergency room attending as well as neurosurgery, Dr. Gonzalez. Patient is not anticoagulated is neurologically intact. Discussed findings with
patient and his at bedside. Plan will be to repeat CT scan at 12:30 in the morning. If the subdural is stable patient wants to go home and he would be able to be safe for discharge. However if the subdural hematoma is larger he would need to
be transferred to [facility]. Case signed out
Repeat CAT scan showed that the small subdural hematoma that was previously thought to exist is no longer there it is thought to be artifact.
NAME: DHAVAL ROACH
DATE OF EXAM: 12/09/2024
Patient No: [id number]
Physician: SHAKEEL
Date of : 1945
Past Medical History (entered by Technologist):
Reason For Exam (entered by Technologist):
Other Notes (entered by Technologist): F/U subdural.
Prior sent
Additional Information (per [facility] Radiologist): Follow-up subdural
CT head
Comparison: CT head 12/08/2024
IMPRESSION:
no acute intracranial findings
No intracranial hemorrhage or mass-effect
Focus of apparent high attenuation in the right anterior frontal extra-axial space on earlier exam no longer visualized (may have been artifactual)
Global cerebral volume loss and chronic microvascular changes in white matter
Case finalized on 12/09/24 00:56 EST
Scooby Page M.D.
This report has been electronically signed and verified by the Radiologist whose name is printed above.
Patient complaining of chronic right leg and hip pain at night.
He has been having gait dysfunction
He had an episode of urinary retention
He has been having frequent falls
Patient's initially had been resistant to have him admitted as she has a meeting with home health care services today for resources in the home. Nursing spoke with her and she now agrees to have him admitted here for further evaluation. Blood
work and urinalysis has been ordered. Patient signed out to [facility] doc will follow-up the blood work and labs
ED Attending Note
Armandlt;Elvis Stack PA-C - Last Filed: 12/08/24 20:04>
-
Portions of this chart may have been created with voice recognition software.� Occasional wrong word or��sound alike� substitutions may have occurred due to the inherent limitations of voice recognition software.
<Sheng M. Soni, DO - Last Filed: 12/08/24 21:42>
ED Attending Note
Patient seen and examined by attending physician: Yes
I performed the substantive portion of visit, reviewed & personally made and approve the management plan that is documented in note by myself or ELKIN.: Yes
ED Attending Note:
I have seen and evaluated the patient with a [id number] encounter. I have spoken to the advance practicer provider and involved in the medical history, the physical exam, medical decision making.
Evaluation and management service: agree unless noted differently below.
Results interpretation: agree unless noted differently below.
Focused HPI: 79-year-old male presenting for evaluation of trip and fall.
Physical exam: Dry mucous membranes. Lying in bed comfortably
Medical Decision Making: CT concerning for a new small subdural hematoma. The case was discussed with neurosurgery and it was decided to repeat this CT in 6 hours. If unchanged, will consider discharge home. Patient is adamant that he wants to go
home. If the CT is concerning for evolving hematoma, will transfer. Patient appears very unsteady and I did offer admission but patient refused. Apparently, he and his have a big meeting at their home tomorrow to discuss home care options
Discharge Plan
Departure
Patient Disposition: Admit
Date of Disposition: 12/09/24
Time of Disposition: 07:14
Presentation/result/management discussed w/ accepting MD/DO: Hospitalist
Discharge Problem:
Falls frequently, Acute urinary retention, Gait dysfunction, Acute pain of right hip
Interventions
Interventions:
*Risk Screen - Suicide Last Done: 12/08/24 17:59
*General Assessment Last Done: 12/08/24 17:53
*Neglect/Abuse Screening Last Done: 12/08/24 17:33
*ED- Fall Risk Assessment Last Done: 12/08/24 17:33
*ED COVID-19 Vaccine History Last Done: 12/08/24 17:53
*ED Influenza Vaccine History Last Done: 12/08/24 17:53
ED-Musculoskeletal Assessment Last Done: 12/08/24 17:56
ED- Neurological Assessment Last Done: 12/08/24 17:56
ED-Skin Assessment Last Done: 12/08/24 17:58
[2024-12-08] MEDS: TYLENOL 650 MG PO (18:10)
[2024-12-09] VITALS (17 sets, daily range): BP systolic 119–209; BP diastolic 80–127
[2024-12-09] MEDS: MORPHINE SULFATE 4 MG IV (01:35)
[2024-12-09 07:49] LABS: Glucose - Point of Care 112 mg/dl (70-99)
--- NOTE | 2024-12-09 08:28 | HPS.HSE ---
Addendum entered and electronically signed by Marc Phillips MD 12/09/24 18:22:
I spoke extensively with patient's Bernadette just now, and answered all of her questions and concerns to satisfaction.
Original Note:
Family Physician
-
Family Physician: Finesse Mccullough
Chief Complaint
-
Falls, ambulatory dysfunction
History of Present Illness
79 y/o male with past medical history of CHF, CAD, diabetes mellitus, CKD, essential hypertension, hyperlipidemia, spinal stenosis status post spinal stimulator and peripheral neuropathy presented after falling multiple times, as well as ambulatory
dysfunction. He fell on 12/08/24 hitting his head. Initial CT Head was thought to show a subdural hematoma, repeat CT head was done showing that the small subdural hematoma that was previously thought to exist was no longer there, and it was thought
to be artifact. Patient had been complaining of right hip pain, likely from the fall. He denied passing out, chest pain, abdominal pain, nausea or vomiting.
Medical History
Past Medical History
Past Medical History: Reports Other (As per HPI above)
Past Surgical History: Reports Other (hand surgery, c spine fusion, lumbar laminectomy)
Social History
Tobacco: Former Smoker
Alcohol: Daily
Drug: None
Family History
Family History: Not pertinent
Allergies / Home Medications
Allergies reflects when Allergies were last updated in [employer].
Home Medications with original date entered in [employer]
Allergy/Medication List:
Allergies
Allergy/AdvReac Type Severity Reaction Status Date / Time
NANCY Inhibitors Allergy Angioedema Verified 12/08/24 17:32
bee pollen Allergy swelling, Verified 12/08/24 17:32
anaphylaxis
bee venom protein (honey bee) Allergy swelling, Verified 12/08/24 17:32
anaphylaxis
ciprofloxacin Allergy Hives Verified 12/08/24 17:32
naproxen (From Aleve) Allergy d/t kidney Verified 12/08/24 17:32
disease
Penicillins Allergy Anaphylaxis; Verified 12/08/24 17:32
tolerated
cefepime &
meropenem
Home Medications
atorvastatin 10 mg tablet 10 mg PO DAILY High cholesterol 01/18/18
Insulin Pump [Patient's Own Insulin Pump:] 0 ea SC .CONTINUOUS Diabetes 06/08/21
albuterol sulfate 90 mcg/actuation aerosol inhaler 2 puff inhalation R Q4HPRN PRN SOB 06/08/21
tramadol 50 mg tablet 50 mg PO TIDPRN PRN severe pain 03/06/23
cyanocobalamin (vitamin B-12) 1,000 mcg tablet 1,000 mcg PO DAILY 07/06/24
insulin lispro 100 unit/mL subcutaneous solution (Humalog U-100 Insulin) See Rx Instructions .Route .COMPLEX 07/06/24
irbesartan 75 mg tablet 75 mg PO DAILY 07/06/24
nortriptyline 10 mg capsule 10 mg PO DAILY Mental Health/Anxiety 07/06/24
thiamine HCl (vitamin B1) 100 mg tablet 100 mg PO DAILY 07/06/24
venlafaxine 37.5 mg capsule,extended release 24 hr 37.5 mg PO DAILY Mental Health/Anxiety 07/06/24
acetaminophen 500 mg capsule 1,000 mg PO QID PRN pain 12/05/24
Review of Systems
-
A 12 point ROS was completed and negative except as noted: Yes
Physical Exam
Vital Signs
Vital Signs
Temp Pulse Resp BP Pulse Ox
98.0 F 83 18 172/80 97
12/09/24 08:20 12/09/24 08:20 12/09/24 08:20 12/09/24 02:00 12/09/24 08:20
Physical Exam
General: No Apparent Distress and Conversant
HEENT: NormoCephalic
Respiratory: Clear
Cardiac: S1/S2 and Regular Rhythm
GI: Soft, Non Tender and Normal Bowel Sounds
Musculoskeletal: No Cyanosis and No Edema
Skin: Warm and Dry
Neuro: Awake, Alert, AO x 3, No Motor Deficits, Nonfocal/grossly intact and No Sensory Deficits
Psych: Calm and Intact Judgment/Insight
Impression/Plan
-
Assessment/Plan
Presentation with frequent falls, gait dysfunction, right hip pain
-Per report, patient apparently had been at [facility] for balance issues and there was consideration of NPH versus Parkinson's.
-He fell last week and was seen at [facility] and had a left clavicular fracture he had a headache when he was here 2 days around 12/05/24. His blood pressure was also elevated in the ED last time and was given irbesartan.
CAT scan of the abdomen and pelvis 2 days ago showed questionable proctitis (will need colonoscopy), suggestion of cystitis, small left pleural effusion, subacute to chronic partially healed lateral right 9th and 10th rib fractures.
CAT scan of the brain at that time was unremarkable.
-Patient was reportedly seen at 5 different hospitals for syncope over the past few weeks
-Patient's stated that patient had been evaluated for normal pressure hydrocephalus and will be going back to [facility] for them to do physical therapy before and after withdrawing 30 mL of spinal fluid on the next lumbar puncture.
says he is also had a PET/CT and MRI which did show an increased amount of fluid. He has been having spasms more recently and has been having some trouble swallowing leading to coughing.
Recent Collarbone Fracture from Fall
-Patient was supposed to see Dr. Nogueira
Episode of urinary retention
-Monitor bladder scans
History of Episode of Rigidity
History of Acute Hyperkalemia
Atrial Fibrillation
History of First Degree AV Block?
-Was previously on Eliquis and calcium channel ke, but not on current home med list
-Eliquis would be high risk of bleeding given falls
Chronic HFpEF
-Stable
Nonobstructive Coronary Artery Disease
-No Aspirin on patient's home med list
Diabetes Mellitus, Type I
-Continue insulin pump
-Appreciate Diabetes INTER COM SERVICER
CKD Stage IV
-Initial Cr 2.0
-Continue to monitor creatinine -- baseline in the past was reportedly around 2.4
Essential Hypertension
-Continue Irbesartan
History of Bilateral Carotid Atherosclerosis
Hyperlipidemia
-Continue atorvastatin
Spinal Stenosis s/p Spinal Stimulator / Peripheral Neuropathy
History of Prostate Cancer?
Additional History:
(2006: Spinal cord injury, fall during hypoglycemic episode, fracture C spine, paralyzed for short time, had to learn to walk again. Vitrectomy, kidney disease, hepatitis,) and Other (Hernia,)
ED Past Surgical History: Other (hand surgery, c spine fusion, lumbar laminectomy)
DVT proph: SCDs. heparin subq
Code Status: Full Code
[2024-12-09 08:33] LABS: Urine Character Clear (Clear)
[2024-12-09 08:34] LABS: Hematocrit 38.4 % (39.0-52.0); Hemoglobin 13.4 g/dL (13.0-18.0); Mean Corp Hgb Conc. 34.9 g/dL (33.0-37.0); Mean Corpuscular Volume 94.1 fL (80.0-94.0); Nucleated Red Blood Cells % 0 % (-); Platelet Count 327 10^3/uL (130-400); Red Cell Dist. Width 13.9 % (11.5-14.5)
[2024-12-09 08:46] LABS: ALT (SGPT) 17 U/L (0-50); AST (SGOT) 20 U/L (17-59); Albumin 4.1 g/dl (3.5-5.0); Alkaline Phosphatase 124 U/L (38-126); Blood Urea Nitrogen 32 mg/dl (9-20); Calcium 9.5 mg/dl (8.4-10.2); Carbon Dioxide 27 mmol/L (22-30); Chloride 103 mmol/L (98-107); Estimated Creatinine Clearance 29 ml/min; Glucose 101 mg/dl (70-99); Potassium 3.7 mmol/L (3.5-5.1); Sodium 139 mmol/L (135-145); Total Protein 7.2 g/dl (6.3-8.2); eGFR 33.32
[2024-12-09 08:52] LABS: Urine Red Blood Cell 0-2 /HPF (0-2); Urine White Cell 0-2 /HPF (0-5)
--- NOTE | 2024-12-09 09:33 | CM ---
Chart reviewed and spoke with patient at ED bedside
Spoke with Bernadette over the phone
His 2 daughters not are very supportive per patient and
Bernadette states that his 1 dtr lives in [place] and another dtr is in [place].
Patient lives with in a 3 story farm house with 3 MICHEAL
Per he needs assistance with all ADLs. Ambulating with RW
Had falls recently. has been working with multiple neurologists at [place] and [place] to w/u Parkinsons vs NPH?
He was going to outpatient [facility] prior to admission
The plan was to take him back to [facility] to do all the w/u
CM provided emotional support to
states that her payroll accounting clerk Mon and Fri can help her
's brother has been working with to help taking care of patient
also hired a male director school of nursing to help with AM ADLs
DME RW cane, w/c grab bars around the house
1st floor set up
PCP Dr. Finesse Mccullough
Has RX plan
Pharmacy [facility]
hx of [facility]
hx of SNF /rehab [facility]
DCP to be discussed
pt prefers to go home with services and would like to make sure his pain is controlled
CM will continue to follow up for any dcp needs
[2024-12-09] MEDS: VITAMIN B1 100 MG PO (13:33)
[2024-12-09] MEDS: LIPITOR 10 MG PO (13:33)
[2024-12-09] MEDS: PAMELOR 10 MG PO (13:33)
--- NOTE | 2024-12-09 13:33 | PTCARENOTE ---
Patient ordered subcutaneous heparin for DVT prophylaxis, patient admitted for falls with concern of SDH. TT MD Phillips to confirm administration of heparin, orders placed to start subcutaneous heparin tomorrow. Not given at this time, see MAR.
[2024-12-09] MEDS: EFFEXOR XR 37.5 MG PO (13:34)
--- NOTE | 2024-12-09 14:11 | PTCARENOTE ---
Patient eating lunch, insulin pump present on left abdomen, monitor states blood sugar 142. Accuchecks ordered ACHS. Care ongoing.
--- NOTE | 2024-12-09 14:33 | PTCARENOTE ---
Cannot verify accuracy of captured vital signs prior to 1100.
[2024-12-09] MEDS: AVAPRO 75 MG PO (15:47)
[2024-12-09 16:00] LABS: Glucose - Point of Care 104 mg/dl (70-99)
--- NOTE | 2024-12-09 16:20 | PN.DE.MGMTRT ---
Insulin Management
- -
12/09/2024: Diabetes Management Consult
79 year old male who is currently being worked up for Parkinson's disease. Patient presented from home after a fall. He has been falling frequently. He lives at home with his . He has a known left clavicle fracture. He also notes some ongoing
hip pain since before the fall.
PMH: HTN, IDDM, Spinal cord injury, fall during hypoglycemic episode, fracture C spine, paralyzed for short time, had to learn to walk again, kidney disease and hepatitis. He is followed by manufacturing supervisor 2nd shift at [facility] Dr. Bernal. Last A1C was
6.4% in 02/2024.
Uses Tandem T-Slim insulin pump with Humalog insulin, soft steel and DexCom G7 CGM. FBG was 112, most recent POC glucose is 104.
Pt states he independently manages his insulin pump and is comfortable with adm bolus at meal times. He denies any recent episodes of hypoglycemia.
Current pump settings:
Basal ICR ICF Target
12am 0.55 1:22 1:90 110
2am 0.5 1:26 1:90 110
8am 0.7 1:26 1:90 110
12pm 0.6 1:14 1:90 110
6pm 0.9 1:22 1:90 110
8:30pm 0.75 1:22 1:90 110
Active insulin 4 hours
24 hour total basal 15.375 units.
Will make no changes to current pump settings. Will update A1C
Discussed with Nurse ans instructed on bedside pump sheet
Will cont to follow.
Diabetes History
- -
Type of Diabetes: 1
Pre-Admission Diabetes Regimen
12/09/24
08:15
Creatinine 2.0 H
Insulin Pump Settings
IP Diabetes Regimen
12/09/24 12/09/24 12/09/24
07:47 08:15 15:57
Glucose 101 H
POC Glucose 112 H 104 H
Patient Education
[2024-12-09] MEDS: TYLENOL 1000 MG PO (17:34)
[2024-12-09] MEDS: PATIENT'S OWN INSULIN PUMP SC ×2 (17:38→22:11)
[2024-12-09] MEDS: ULTRAM 50 MG PO (20:19)
[2024-12-09] MEDS: THERAGRAN 1 TABLET PO (20:20)
[2024-12-09] MEDS: LOPRESSOR 5 MG IV (21:16)
[2024-12-09 22:14] LABS: Glucose - Point of Care 107 mg/dl (70-99)
--- NOTE | 2024-12-09 23:03 | W.PN.UPDATE ---
Update Note
Progress Note Update
blood pressure high
[2024-12-09] MEDS: APRESOLINE 10 MG IV (23:04)
[2024-12-09 23:34] LABS: Vitamin B12 995 pg/ml (239-931)
[2024-12-10] VITALS (8 sets, daily range): BP systolic 141–189; BP diastolic 76–102; BMI 21.7
[2024-12-10] MEDS: LOPRESSOR 5 MG IV (00:49)
[2024-12-10] MEDS: APRESOLINE 5 MG IV (03:31)
[2024-12-10] MEDS: ULTRAM 50 MG PO ×2 (03:35→15:51)
--- NOTE | 2024-12-10 05:19 | PTCARENOTE ---
2016 Pt's BP 190/99 Hr: 100, House STAMPS OR COINS SALESPERSON notified, medications ordered.
0040 Pt's BP 189/103 HR: 83, bladder scanned for 281ml, House STAMPS OR COINS SALESPERSON notified, medications ordered.
0255 Pt's BP 183/90 HR: 83, House STAMPS OR COINS SALESPERSON notified, medications ordered.
--- NOTE | 2024-12-10 07:12 | W.PN.HOSP.TC ---
Today's Communication/Plan
-
Continue to monitor on telemetry
Verapamil can be given early tonight if needed for high blood pressure
See plan
Assessment / Plan
Assessment / Plan
Physical Exam
General: No Apparent Distress and Conversant
HEENT: Normocephalic
Respiratory: Clear
Cardiac: S1/S2 and Regular Rhythm
GI: Soft, Non Tender and Normal Bowel Sounds
Musculoskeletal: No Cyanosis and No Edema
Skin: Warm and Dry
Neuro: Awake, Alert, AO x 3, No Motor Deficits, Nonfocal/grossly intact and No Sensory Deficits
Psych: Calm and Intact Judgment/Insight
Assessment/Plan
79 y/o male with past medical history of CHF, CAD, diabetes mellitus, CKD, essential hypertension, hyperlipidemia, spinal stenosis status post spinal stimulator and peripheral neuropathy presented after falling multiple times, as well as ambulatory
dysfunction. He fell on 12/08/24 hitting his head. Initial CT Head was thought to show a subdural hematoma, repeat CT head was done showing that the small subdural hematoma that was previously thought to exist was no longer there, and it was thought
to be artifact. Patient had been complaining of right hip pain, likely from the fall. He denied passing out, chest pain, abdominal pain, nausea or vomiting.

Presentation with frequent falls, gait dysfunction, right hip pain
-Per patient and his , these most recent falls have NOT been associated with syncope
-Discussed with cardiology -- falls appear to be neurologic in nature, but still check echocardiogram
-Per report, patient apparently had been at [facility] for balance issues and there was consideration of NPH versus Parkinson's.
-He fell last week and was seen at [place] and had a left clavicular fracture he had a headache when he was here 2 days around 12/05/24. His blood pressure was also elevated in the ED last time and was given irbesartan.
CAT scan of the abdomen and pelvis 2 days ago showed questionable proctitis (will need colonoscopy), suggestion of cystitis, small left pleural effusion, subacute to chronic partially healed lateral right 9th and 10th rib fractures.
CAT scan of the brain at that time was unremarkable.
-Patient was reportedly seen at 5 different hospitals for syncope over the past few weeks
-Patient's stated that patient had been evaluated for normal pressure hydrocephalus and will be going back to [facility] for them to do physical therapy before and after withdrawing 30 mL of spinal fluid on the next lumbar puncture.
says he is also had a PET/CT and MRI which did show an increased amount of fluid. He has been having spasms more recently and has been having some trouble swallowing leading to coughing.
-Patient's Bernadette also said that patient was at [facility] previously, was thought to have a seizure, placed on seizure medication which was stopped as later it was determined patient did NOT actually have a seizure,
but later was determined to have orthostatic hypotension, then went to [facility] for ~1 week, then returned home, followed up with his PCP Dr. Finesse Mccullough (had syncope in his office, found to have orthostasis)
-Patient's overall clinical picture seems neurologic, needs to follow-up with neurology at [facility] after BP is controlled
-Continue to monitor on telemetry
History of Orthostatic Hypotension
-Many antihypertensives were previously weaned off
-Was previously on Midodrine but this was also weaned off
-Now BPs are high, will start Verapamil as below
-Patient saw [facility] cardio Dr. Hess outpatient
-Consider RACHELL stockings and abdominal binder
Recent Collarbone Fracture from Fall
-Patient was supposed to see Dr. Nogueira
-Clavicle X-Ray from 12/10/24 showed as per radiologist's report: Mildly comminuted fracture of the distal left clavicle; Likely fracture of the left posterior sixth rib.
Episode of urinary retention
-Monitor bladder scans
History of Episode of Rigidity
History of Acute Hyperkalemia
Paroxysmal Atrial Fibrillation
History of First Degree AV Block?
-Was previously on Eliquis and calcium channel ke, but not on current home med list this admission
-Eliquis would be high risk of bleeding given falls
-Patient's said that patient never had A-Fib after February 2024 hospitalization
Chronic HFpEF
-Stable
Nonobstructive Coronary Artery Disease
-No Aspirin on patient's home med list
Diabetes Mellitus, Type I
-Continue insulin pump
-Appreciate Diabetes RANGE EXAMINER
CKD Stage IV
-Initial Cr 2.0
-Continue to monitor creatinine -- baseline in the past was reportedly around 2.4
Essential Hypertension
Hypertensive Urgency
-Continue Irbesartan (was on high dose previously but reduced due to orthostatic hypotension)
-Amlodipine small dose given on 12/10/24 morning, change to Verapamil 40 mg TID starting 12/10/24 as Verapamil can also help with muscle spasms
History of Bilateral Carotid Atherosclerosis
Hyperlipidemia
-Continue atorvastatin
Spinal Stenosis s/p Spinal Stimulator / Peripheral Neuropathy
History of Prostate Cancer?
Additional History:
(2006: Spinal cord injury, fall during hypoglycemic episode, fracture C spine, paralyzed for short time, had to learn to walk again. Vitrectomy, kidney disease, hepatitis,) and Other (Hernia,)
ED Past Surgical History: Other (hand surgery, c spine fusion, lumbar laminectomy)
DVT proph: SCDs. heparin subq
Code Status: Full Code
On 12/10/24, I called patient's Bernadette (I had also spoken to her on 12/09/24) and spoke to her extensively, and I answered all of her questions and concerns to satisfaction.
On 12/10/24, I [place] Texted patient's PCP Dr. Mccullough about patient being in the hospital, I also called patient's faculty research physician Dr. Puma Bernal -- [phone], but he did not answer the phone.
Total time spent today on chart review, seeing and examining the patient, documentation, placing orders, speaking with patient's Bernadette and communicating with sales assistant displays was 65 minutes.
Anticipated Discharge: 24 - 48 hours
Subjective/Interval History
-
Date of Service: December 10, 2024
Patient was seen and examined. He reported feeling okay, denied any new symptoms or complaints.
Objective Data
-
Labs:
Laboratory Results
12/10/24
06:00
WBC Pending
Hgb Pending
Hct Pending
Plt Count Pending
Sodium Pending
Potassium Pending
Chloride Pending
Carbon Dioxide Pending
BUN Pending
Creatinine Pending
Glucose Pending
Calcium Pending
Vital Signs:
Vital Signs
Temp Pulse Resp BP Pulse Ox
97.6 F 90 16 141/76 98
12/10/24 03:06 12/10/24 05:30 12/10/24 03:06 12/10/24 05:30 12/10/24 03:06
I&O
12/09/24 12/10/24 12/11/24
06:59 06:59 06:59
Output Total 750 / 750
Balance -750 / -750
--- NOTE | 2024-12-10 07:26 | PN.DE.MGMTRT ---
Insulin Management
- -
12/10/2024: Diabetes Management Consult Follow up
79 year old male admitted s/p fall at home. He lives at home with his ; she reports he has been falling frequently. He has a known left clavicle fracture. He also notes some ongoing hip pain since before the fall. PMH: HTN, IDDM, Spinal cord
injury, fall during hypoglycemic episode, fracture C spine, paralyzed for short time, kidney disease and hepatitis, currently being worked up for Parkinson's disease. He is followed by motor vehicle technician at [facility] Dr. Bernal. Last A1C was 6.4%
in 02/2024. Current A1C 6.9%, cr 1.7, eGFR 40.50.
Uses Tandem T-Slim insulin pump with Humalog insulin, soft steel and DexCom G7 CGM.
12/10 Glucose range yesterday 104 to 112. Fasting glucose 108. states patient is very forgetful and often forgets to bolus. Today had pancakes and did not bolus. Glucose up to 368 pre lunch. After discussion with patient and , will
leave pump in place to deliver basal insulin but will administer 2 units novolog AC. Patient and agree he should not bolus at this time.
Pt states he independently manages his insulin pump and is comfortable with adm bolus at meal times. He denies any recent episodes of hypoglycemia.
Current pump settings:
Basal ICR ICF Target
12am 0.55 1:22 1:90 110
2am 0.5 1:26 1:90 110
8am 0.7 1:26 1:90 110
12pm 0.6 1:14 1:90 110
6pm 0.9 1:22 1:90 110
8:30pm 0.75 1:22 1:90 110
Active insulin 4 hours
24 hour total basal 15.375 units.
Will make no changes to current pump settings.
Discussed with Nurse
Will cont to follow.
Diabetes History
- -
Type of Diabetes: 1
Pre-Admission Diabetes Regimen
12/09/24
08:15
Creatinine 2.0 H
Insulin Pump Settings
IP Diabetes Regimen
12/09/24 12/09/24 12/09/24
07:47 08:15 15:57
Glucose 101 H
POC Glucose 112 H 104 H
12/09/24
22:03
Glucose
POC Glucose 107 H
Patient Education
[2024-12-10 08:15] LABS: Hematocrit 41.4 % (39.0-52.0); Hemoglobin 13.4 g/dL (13.0-18.0); Mean Corp Hgb Conc. 32.4 g/dL (33.0-37.0); Mean Corpuscular Volume 99.3 fL (80.0-94.0); Platelet Count 268 10^3/uL (130-400); Red Cell Dist. Width 13.9 % (11.5-14.5)
[2024-12-10 08:24] LABS: Glucose - Point of Care 108 mg/dl (70-99)
[2024-12-10] MEDS: PATIENT'S OWN INSULIN PUMP SC ×3 (08:46→22:56)
[2024-12-10 09:39] LABS: Glycohemoglobin (HgbA1c) 6.9 % (4.0-5.9)
[2024-12-10 09:58] LABS: Blood Urea Nitrogen 28 mg/dl (9-20); Calcium 9.6 mg/dl (8.4-10.2); Carbon Dioxide 26 mmol/L (22-30); Chloride 103 mmol/L (98-107); Estimated Creatinine Clearance 34 ml/min; Glucose 111 mg/dl (70-99); Magnesium 2.3 mg/dl (1.6-2.3); Potassium 4.1 mmol/L (3.5-5.1); Sodium 138 mmol/L (135-145); eGFR 40.50
[2024-12-10 10:08] LABS: Hepatitis C Antibody Negative (Negative)
[2024-12-10] MEDS: VITAMIN B-12 1000 MCG PO (10:26)
[2024-12-10] MEDS: EFFEXOR XR 37.5 MG PO (10:26)
[2024-12-10] MEDS: VITAMIN B1 100 MG PO (10:26)
[2024-12-10] MEDS: LIPITOR 10 MG PO (10:26)
[2024-12-10] MEDS: THERAGRAN 1 TABLET PO (10:30)
[2024-12-10] MEDS: AVAPRO 75 MG PO (10:30)
[2024-12-10] MEDS: PAMELOR 10 MG PO (10:31)
[2024-12-10] MEDS: HEPARIN 5000 UNITS SC ×2 (10:31→23:16)
--- NOTE | 2024-12-10 10:36 | CM ---
ANDRE reviewed and signed by pt, he declined copy.
[2024-12-10] MEDS: NORVASC 2.5 MG PO (10:37)
--- NOTE | 2024-12-10 10:37 | CON.CAR ---
Addendum entered and electronically signed by oRberto Mathews MD 12/10/24 17:14:
I saw and evaluated the patient, and I provided the substantive portion of the medical decision making.
I reviewed and agree with the note by Dr Gil and it accurately reflects our care.
I personally performed the medical decision making of the this encounter and my assessment and plan is below:
Falls
- likley not related to CV disease
- remain on tele
- update echo
We will sign off pls call with questions
Original Note:
Consultation
Consultation Request
Date/Time Consultation Requested: 12/10/2024; 10:20
Date/Time Consultation Performed: 12/10/2024; 10:38
Requesting Provider: Dr. Marc Phillips
Performing Provider: Dr. Roberto Mathews; Dr. Catracho Gil
Reason for Consultation: severe HTN,orthostatic hypotension history
Medical History
-
Chief Complaint: Fall
History of Present Illness:
79 yo M PMH HFpEF, HTN, HLD, T1DM since age 11, 1st degree AV Block, CKD 3b, nonrheumatic trace aortic valve regurgitation, spinal stenosis s/p spinal stimulator, peripheral neuropathy p/w fall and gait dysfunction.
The patient is not a reliable historian (AOx2, but does not remember falling, or why he came to hospital).
He fell on 12/08/2024 with headstrike. CTH noncon initially showed possible subdural hematoma that was then thought to be an artifact.
He is currently being worked up for Parkinson disease as well given hx of multiple falls.
I spoke with Bernadette, and his story begins 2 weeks ago when he broke his clavicle and has been managing that as an outpatient. However, 4 days ago, the reports that he has been having leg tremors, spasms, and cramps at night. Then, one
morning (12/08), he is walking with a cane and then suddenly freezes up and falls hitting his head, back.
He has a history of falls which was previously attributed to atrial fibrillation but was found to not be afib. It was possibly believed that his BP med was not adjusted in the setting of a 30 lb weight loss, the reports. And, then he required
midodrine for a bit. He follows with Neurology at [facility].
Once in the ED, the reports that the nurse told her that the patient was still experiencing cramping/spasms, and was also found to void a gallon of urine once a catheter was placed.
This admission, he was also noted to have elevated BP to the 200s/100s overnight, 12/09. Has been administered hydralazine, irbesartan,
Past Medical History
Past Medical History: Arrhythmias, CHF, HTN, Hypercholesterolemia, Valvular Disease and Other (diabetes mellitus)
Past Surgical History: Other (hand surgery, c spine fusion, lumbar laminectomy)
Social History
Tobacco: Former Smoker
Alcohol: Daily
Drug: None
Personal:
Living: With Family
Allergies / Home Medications
Allergy/AdvReac Type Severity Reaction Status Date / Time
NANCY Inhibitors Allergy Angioedema Verified 12/08/24 17:32
bee pollen Allergy swelling, Verified 12/08/24 17:32
anaphylaxis
bee venom protein (honey bee) Allergy swelling, Verified 12/08/24 17:32
anaphylaxis
ciprofloxacin Allergy Hives Verified 12/08/24 17:32
naproxen (From Aleve) Allergy d/t kidney Verified 12/08/24 17:32
disease
Penicillins Allergy Anaphylaxis; Verified 12/08/24 17:32
tolerated
cefepime &
meropenem
�Medication �Instructions �Recorded �Confirmed �Type
atorvastatin 10 mg tablet 10 mg PO DAILY High cholesterol 01/18/18 12/09/24 History
Insulin Pump [Patient's Own 0 ea SC .CONTINUOUS Diabetes 06/08/21 12/09/24 History
Insulin Pump:]
albuterol sulfate 90 mcg/actuation 2 puff inhalation R Q4HPRN PRN SOB 06/08/21 12/09/24 History
aerosol inhaler
tramadol 50 mg tablet 50 mg PO TIDPRN PRN severe pain 03/06/23 12/09/24 History
cyanocobalamin (vitamin B-12) 1,000 mcg PO DAILY 07/06/24 12/09/24 History
1,000 mcg tablet
insulin lispro 100 unit/mL See Rx Instructions .Route .COMPLEX 07/06/24 12/09/24 History
subcutaneous solution (Humalog
U-100 Insulin)
irbesartan 75 mg tablet 75 mg PO DAILY 07/06/24 12/09/24 History
nortriptyline 10 mg capsule 10 mg PO DAILY Mental 07/06/24 12/09/24 History
Health/Anxiety
thiamine HCl (vitamin B1) 100 mg 100 mg PO DAILY 07/06/24 12/09/24 History
tablet
venlafaxine 37.5 mg 37.5 mg PO DAILY Mental 07/06/24 12/09/24 History
capsule,extended release 24 hr Health/Anxiety
acetaminophen 500 mg capsule 1,000 mg PO QID PRN pain 12/05/24 12/09/24 History
Review of Systems
-
Unable to obtain full review of systems at this time due to: Dementia
Physical Exam
Vital Signs
Temp Pulse Resp BP Pulse Ox
98.4 F 87 18 149/88 99
12/10/24 08:37 12/10/24 08:37 12/10/24 08:37 12/10/24 08:37 12/10/24 08:37
Lab Results
12/10/24 07:52
12/10/24 08:57
EKG 12/10/2024
Vent. Rate : 97 BPM Atrial Rate : 97 BPM
P-R Int : 186 ms QRS Dur : 76 ms
QT Int : 346 ms P-R-T Axes : 58 36 53 degrees
QTcB Int : 439 ms
SINUS RHYTHM WITH OCCASIONAL PREMATURE VENTRICULAR COMPLEXES
Poor R-wave progression ; consider anterior infarct, lead placement, or normal
variant
ABNORMAL ECG
Echocardiogram 02/21/2024
CONCLUSIONS
Left ventricular ejection fraction is 60-65%, by visual assessment. Normal
regional wall motion.
Normal right ventricular size and function.
Aortic sclerosis without stenosis.
Trace aortic regurgitation
Physical Exam
General: No Apparent Distress
Respiratory: Clear
Cardiac: Other (no murmurs on my exam)
GI: Soft and Non Tender
Musculoskeletal: No Edema
Skin: Warm
Neuro: Awake, Nonfocal/Grossly Intact and Other (AOx1)
Psych: Calm
Impression / Plan
-
79 yo M PMH HFpEF, HTN, HLD, T1DM since age 11, 1st degree AV Block, CKD 3b, nonrheumatic trace aortic valve regurgitation, spinal stenosis s/p spinal stimulator, peripheral neuropathy p/w fall and gait dysfunction with likely syncopal episode.
Autonomic dysfunction
- he fell, and per 's report, legs just gave way with eyes rolling back
- muscle cramps, gait dysfunction, elevated BP, reports of orthostatic hypotension, and possible urinary retention (see HPI above) could suggest autonomic dysfunction
- also being worked up for Parkinson's disease, which can be associated with dysautonomia.
- he is also T1DM since age 11, he very likely has some degree of peripheral neuropathy also contributing to falls, gait dysfunction
Plan
- consider TTE
- monitor on telemetry
- consider neurology consult
- Recommendations are not final until discussed with Dr. Mathews, cardiology attg
Hypertensive urgency
- elevated BP to 200s/100s
- required hydralazine, irbesartan
- no clear evidence of end organ dysfunction because patient is not cognitively intact at baseline, Cr 1.7 appears similar to his baseline
- continue to monitor BP
HFpEF
- HFpEF per chart documentation
- denies dyspnea, no peripheral edema
- weight is 68 kgs
- takes irbesartan at home
T1DM
- insulin
HLD
- continue statin
Nonrheumatic aortic valve regurgitation
- last echo in 02/21/2024 stated trace aortic regurgitation
[2024-12-10 12:41] LABS: Glucose - Point of Care 368 mg/dl (70-99)
[2024-12-10] MEDS: PATIENT'S OWN INSULIN PUMP 3.22 UNITS SC (13:00)
[2024-12-10] MEDS: NOVOLOG FLEXPEN 2 UNITS SC ×2 (14:22→18:21)
[2024-12-10] MEDS: HEPARIN SC (16:00)
[2024-12-10 17:52] LABS: Glucose - Point of Care 221 mg/dl (70-99)
[2024-12-10] MEDS: PATIENT'S OWN INSULIN PUMP 0.32 UNITS SC (22:03)
[2024-12-10] MEDS: ISOPTIN 40 MG PO (22:04)
[2024-12-10 22:33] LABS: Glucose - Point of Care 146 mg/dl (70-99)
[2024-12-11] VITALS (9 sets, daily range): BP systolic 107–186; BP diastolic 60–92; PULSE 87; O2SAT 99; BMI 22.4
[2024-12-11 08:03] LABS: Hematocrit 40.9 % (39.0-52.0); Hemoglobin 13.3 g/dL (13.0-18.0); Mean Corp Hgb Conc. 32.5 g/dL (33.0-37.0); Mean Corpuscular Volume 99.0 fL (80.0-94.0); Platelet Count 318 10^3/uL (130-400); Red Cell Dist. Width 13.7 % (11.5-14.5)
[2024-12-11 08:53] LABS: Blood Urea Nitrogen 29 mg/dl (9-20); Calcium 9.2 mg/dl (8.4-10.2); Carbon Dioxide 28 mmol/L (22-30); Chloride 100 mmol/L (98-107); Estimated Creatinine Clearance 38 ml/min; Glucose 127 mg/dl (70-99); Potassium 3.7 mmol/L (3.5-5.1); Sodium 134 mmol/L (135-145); eGFR 43.56
[2024-12-11 09:03] LABS: Glucose - Point of Care 120 mg/dl (70-99)
[2024-12-11] MEDS: PATIENT'S OWN INSULIN PUMP SC ×2 (09:19→23:50)
--- NOTE | 2024-12-11 09:48 | W.PN.HOSP.TC ---
Today's Communication/Plan
-
Blood pressure improved
Rehab placement in progress
Consulted physiatry for acute rehab eval
Assessment / Plan
Assessment / Plan
Physical Exam
General: No Apparent Distress and Conversant
HEENT: Normocephalic
Respiratory: Clear
Cardiac: S1/S2 and Regular Rhythm
GI: Soft, Non Tender and Normal Bowel Sounds
Musculoskeletal: No Cyanosis and No Edema
Skin: Warm and Dry
Neuro: Awake, Alert, AO x 3, No Motor Deficits, Nonfocal/grossly intact and No Sensory Deficits
Psych: Calm and Intact Judgment/Insight
Assessment/Plan
79 y/o male with past medical history of CHF, CAD, diabetes mellitus, CKD, essential hypertension, hyperlipidemia, spinal stenosis status post spinal stimulator and peripheral neuropathy presented after falling multiple times, as well as ambulatory
dysfunction. He fell on 12/08/[address] head. Initial CT Head was thought to show a subdural hematoma, repeat CT head was done showing that the small subdural hematoma that was previously thought to exist was no longer there, and it was thought
to be artifact. Patient had been complaining of right hip pain, likely from the fall. He denied passing out, chest pain, abdominal pain, nausea or vomiting.

Presentation with frequent falls, gait dysfunction, right hip pain
-Per patient and his , these most recent falls have NOT been associated with syncope
-Discussed with cardiology -- falls appear to be neurologic in nature, but still check echocardiogram
-Per report, patient apparently had been at [facility] for balance issues and there was consideration of NPH versus Parkinson's.
-He fell last week and was seen at [place] and had a left clavicular fracture he had a headache when he was here 2 days around 12/05/24. His blood pressure was also elevated in the ED last time and was given irbesartan.
CAT scan of the abdomen and pelvis 2 days ago showed questionable proctitis (will need colonoscopy), suggestion of cystitis, small left pleural effusion, subacute to chronic partially healed lateral right 9th and 10th rib fractures.
CAT scan of the brain at that time was unremarkable.
-Patient was reportedly seen at 5 different hospitals for syncope over the past few weeks
-Patient's stated that patient had been evaluated for normal pressure hydrocephalus and will be going back to [facility] for them to do physical therapy before and after withdrawing 30 mL of spinal fluid on the next lumbar puncture.
says he is also had a PET/CT and MRI which did show an increased amount of fluid. He has been having spasms more recently and has been having some trouble swallowing leading to coughing.
-Patient's Bernadette also said that patient was at [facility] previously, was thought to have a seizure, placed on seizure medication which was stopped as later it was determined patient did NOT actually have a seizure,
but later was determined to have orthostatic hypotension, then went to [facility] for ~1 week, then returned home, followed up with his PCP Dr. Finesse Mccullough (had syncope in his office, found to have orthostasis)
-Patient's overall clinical picture seems neurologic, needs to follow-up with neurology at [facility] after BP is controlled
-Continue to monitor on telemetry
History of Orthostatic Hypotension
-Many antihypertensives were previously weaned off
-Was previously on Midodrine but this was also weaned off
-Now BPs are high, will start Verapamil as below
-Patient saw [facility] cardio Dr. Hess outpatient
-Consider RACHELL stockings and abdominal binder
Recent Collarbone Fracture from Fall
-Patient was supposed to see Dr. Nogueira
-Clavicle X-Ray from 12/10/24 showed as per radiologist's report: Mildly comminuted fracture of the distal left clavicle; Likely fracture of the left posterior sixth rib.
-Will discuss with cardiothoracic surgery and Dr. Nogueira, as per patient's 's request
Episode of urinary retention
-Monitor bladder scans
History of Episode of Rigidity
History of Acute Hyperkalemia
Paroxysmal Atrial Fibrillation
History of First Degree AV Block?
-Was previously on Eliquis and calcium channel ke, but not on current home med list this admission
-Eliquis would be high risk of bleeding given falls
-Patient's said that patient never had A-Fib after February 2024 hospitalization
Chronic HFpEF
-Stable
Nonobstructive Coronary Artery Disease
-No Aspirin on patient's home med list
Diabetes Mellitus, Type I
-Continue insulin pump
-Appreciate Diabetes CHILDHOOD TEACHER
CKD Stage IV
-Initial Cr 2.0
-Continue to monitor creatinine -- baseline in the past was reportedly around 2.4
Essential Hypertension
Hypertensive Urgency
-Continue Irbesartan (was on high dose previously but reduced due to orthostatic hypotension)
-Amlodipine small dose given on 12/10/24 morning, change to Verapamil 40 mg TID starting 12/10/24 as Verapamil can also help with muscle spasms
History of Bilateral Carotid Atherosclerosis
Hyperlipidemia
-Continue atorvastatin
Spinal Stenosis s/p Spinal Stimulator / Peripheral Neuropathy
History of Prostate Cancer?
Recent CT Findings (as per radiologist's report from 12/05/24)
1. Questionable proctitis. Recommend correlation with direct visualization to rule out underlying neoplasm.
2. Findings suggesting cystitis in the appropriate clinical context.
3. Small left pleural effusion.
4. Subacute to chronic partially healed lateral right 9th and 10th rib fractures.
Additional History:
(2006: Spinal cord injury, fall during hypoglycemic episode, fracture C spine, paralyzed for short time, had to learn to walk again. Vitrectomy, kidney disease, hepatitis,) and Other (Hernia,)
ED Past Surgical History: Other (hand surgery, c spine fusion, lumbar laminectomy)
DVT proph: SCDs. heparin subq
Code Status: Full Code
On 12/10/24, I called patient's Bernadette (I had also spoken to her on 12/09/24) and spoke to her extensively, and I answered all of her questions and concerns to satisfaction.
On 12/10/24, I [place] Texted patient's PCP Dr. Mccullough about patient being in the hospital, I also called patient's newspaper library manager Dr. Puma Bernal -- [phone], but he did not answer the phone.
On 12/11/24, patient's Bernadette stated to me that she will contact patient's [facility] physicians and update them on patient's hospitalization here, and if any concerns from their standpoint, patient's will let nurse and myself know.
Total time spent today on chart review, seeing and examining the patient, documentation, placing orders, speaking with patient's Bernadette and communicating with street sweeper operator was 60 minutes.
Anticipated Discharge: 24 - 48 hours
Subjective/Interval History
-
Date of Service: December 11, 2024
Patient was seen and examined. He denied any new symptoms or complaints.
Objective Data
-
Labs:
Laboratory Results
12/11/24
07:48
WBC 7.3
Hgb 13.3
Hct 40.9
Plt Count 318
Sodium 134 L
Potassium 3.7
Chloride 100
Carbon Dioxide 28
BUN 29 H
Creatinine 1.6 H
Glucose 127 H
Calcium 9.2
Vital Signs:
Vital Signs
Temp Pulse Resp BP Pulse Ox
98.7 F 91 18 186/92 99
12/11/24 08:00 12/11/24 08:00 12/11/24 08:00 12/11/24 08:00 12/11/24 08:00
I&O
12/10/24 12/11/24 12/12/24
06:59 06:59 06:59
Output Total 750 / 750 1050 / 1050
Balance -750 / -750 -1050 / -1050
[2024-12-11] MEDS: VITAMIN B-12 1000 MCG PO (10:48)
[2024-12-11] MEDS: THERAGRAN 1 TABLET PO (10:49)
[2024-12-11] MEDS: VITAMIN B1 100 MG PO (10:49)
[2024-12-11] MEDS: HEPARIN 5000 UNITS SC ×2 (10:49→17:23)
[2024-12-11] MEDS: ISOPTIN 40 MG PO ×3 (10:49→21:20)
[2024-12-11] MEDS: EFFEXOR XR 37.5 MG PO (10:49)
[2024-12-11] MEDS: LIPITOR 10 MG PO (10:49)
[2024-12-11] MEDS: PAMELOR 10 MG PO (10:49)
[2024-12-11] MEDS: AVAPRO 75 MG PO (10:50)
[2024-12-11] MEDS: NOVOLOG FLEXPEN 2 UNITS SC ×3 (10:50→18:04)
[2024-12-11] MEDS: PATIENT'S OWN INSULIN PUMP 0.69 UNITS SC (12:30)
[2024-12-11 13:12] LABS: Glucose - Point of Care 252 mg/dl (70-99)
--- NOTE | 2024-12-11 13:20 | PN.DE.MGMTRT ---
Insulin Management
- -
12/11/2024: Diabetes Management Consult Follow up
79 year old male admitted s/p fall at home. He lives at home with his ; she reports he has been falling frequently. He has a known left clavicle fracture. He also notes some ongoing hip pain since before the fall. PMH: HTN, IDDM, Spinal cord
injury, fall during hypoglycemic episode, fracture C spine, paralyzed for short time, kidney disease and hepatitis, currently being worked up for Parkinson's disease. He is followed by corn picker at [facility] Dr. Bernal. Last A1C was 6.4%
in 02/2024. Current A1C 6.9%, cr 1.7, eGFR 40.50.
Uses Tandem T-Slim insulin pump with Humalog insulin, soft steel and DexCom G7 CGM.
12/10 Glucose range yesterday 104 to 112. Fasting glucose 108. states patient is very forgetful and often forgets to bolus. Today had pancakes and did not bolus. Glucose up to 368 pre lunch. After discussion with patient and , will
leave pump in place to deliver basal insulin but will administer 2 units novolog AC. Patient and agree he should not bolus at this time.
12/11 Fasting glucose 127. Glucose variable but acceptable due to patient condition and age. Control IQ remains on, basal insulin being delivered. Nurse to administer AC novolog 2 units.
Pt states he independently manages his insulin pump and is comfortable with adm bolus at meal times. He denies any recent episodes of hypoglycemia. Due to current forgetfulness only the basal rates are running, patient is not administering bolus
while her.
Current pump settings:
Basal ICR ICF Target
12am 0.55 1:22 1:90 110
2am 0.5 1:26 1:90 110
8am 0.7 1:26 1:90 110
12pm 0.6 1:14 1:90 110
6pm 0.9 1:22 1:90 110
8:30pm 0.75 1:22 1:90 110
Active insulin 4 hours
24 hour total basal 15.375 units.
Will make no changes to current pump settings.
Discussed with Nurse
Will cont to follow.
Diabetes History
- -
Type of Diabetes: 1
Pre-Admission Diabetes Regimen
12/11/24
07:48
Creatinine 1.6 H
Lab Results
Hemoglobin A1c 6.9 % (4.0-5.9) H 12/09/24 08:15
Insulin Pump Settings
IP Diabetes Regimen
12/10/24 12/10/24 12/11/24
17:40 22:22 07:48
Glucose 127 H
POC Glucose 221 H 146 H
12/11/24 12/11/24
08:51 13:00
Glucose
POC Glucose 120 H 252 H
Patient Education
[2024-12-11] MEDS: PATIENT'S OWN INSULIN PUMP 5.95 UNITS SC (16:50)
--- NOTE | 2024-12-11 17:09 | CM ---
Chart reviewed and spoke with patient and at bedside
PT eval completed. interested in acute rehab at [place]
Dr. Jimenez made aware, physicatry consult pending
will continue to follow up tomorrow
[2024-12-11] MEDS: MIRALAX 17 GRAMS PO (17:24)
[2024-12-11] MEDS: SENOKOT-S 1 TABLET PO (17:27)
[2024-12-11 17:49] LABS: Glucose - Point of Care 300 mg/dl (70-99)
[2024-12-11 17:50] LABS: Glucose - Point of Care 340 mg/dl (70-99)
[2024-12-11] MEDS: NOVOLOG FLEXPEN 3 UNITS SC (18:03)
[2024-12-11] MEDS: ULTRAM 50 MG PO (18:46)
[2024-12-11 19:02] LABS: Glucose - Point of Care 269 mg/dl (70-99)
[2024-12-11] MEDS: TYLENOL 1000 MG PO (21:27)
[2024-12-11 23:16] LABS: Glucose - Point of Care 141 mg/dl (70-99)
--- NOTE | 2024-12-11 23:25 | PTCARENOTE ---
RN instructed to call Diabetic [facility] @ 11 with BG results. Message left at number provided by [employer]. ([phone])
[2024-12-12] MEDS: HEPARIN 5000 UNITS SC ×4 (00:40→23:49)
[2024-12-12 03:34] LABS: Glucose - Point of Care 131 mg/dl (70-99)
[2024-12-12 03:51] VITALS: BP 131/69
[2024-12-12 05:53] VITALS: BMI 22.4
[2024-12-12 07:16] LABS: Hematocrit 35.6 % (39.0-52.0); Hemoglobin 12.3 g/dL (13.0-18.0); Mean Corp Hgb Conc. 34.6 g/dL (33.0-37.0); Mean Corpuscular Volume 95.7 fL (80.0-94.0); Platelet Count 303 10^3/uL (130-400); Red Cell Dist. Width 13.2 % (11.5-14.5)
--- NOTE | 2024-12-12 07:23 | W.PN.HOSP.TC ---
Today's Communication/Plan
-
MRI L-Spine
Assessment / Plan
Assessment / Plan
Physical Exam
General: No Apparent Distress and Conversant
HEENT: Normocephalic
Respiratory: Clear
Cardiac: S1/S2 and Regular Rhythm
GI: Soft, Non Tender and Normal Bowel Sounds
Musculoskeletal: No Cyanosis and No Edema
Skin: Warm and Dry
Neuro: Awake, Alert, AO x 3, No Motor Deficits, Nonfocal/grossly intact and No Sensory Deficits
Psych: Calm and Intact Judgment/Insight
Assessment/Plan
79 y/o male with past medical history of CHF, CAD, diabetes mellitus, CKD, essential hypertension, hyperlipidemia, spinal stenosis status post spinal stimulator and peripheral neuropathy presented after falling multiple times, as well as ambulatory
dysfunction. He fell on 12/08/24 hitting his head. Initial CT Head was thought to show a subdural hematoma, repeat CT head was done showing that the small subdural hematoma that was previously thought to exist was no longer there, and it was thought
to be artifact. Patient had been complaining of right hip pain, likely from the fall. He denied passing out, chest pain, abdominal pain, nausea or vomiting.

Presentation with frequent falls, gait dysfunction, right hip pain
-Per patient and his , these most recent falls have NOT been associated with syncope
-Discussed with cardiology -- falls appear to be neurologic in nature, but still check echocardiogram
-Per report, patient apparently had been at [facility] for balance issues and there was consideration of NPH versus Parkinson's.
-He fell last week and was seen at [place] and had a left clavicular fracture he had a headache when he was here 2 days around 12/05/24. His blood pressure was also elevated in the ED last time and was given irbesartan.
CAT scan of the abdomen and pelvis 2 days ago showed questionable proctitis (will need colonoscopy), suggestion of cystitis, small left pleural effusion, subacute to chronic partially healed lateral right 9th and 10th rib fractures.
CAT scan of the brain at that time was unremarkable.
-Patient was reportedly seen at 5 different hospitals for syncope over the past few weeks
-Patient's stated that patient had been evaluated for normal pressure hydrocephalus and will be going back to [facility] for them to do physical therapy before and after withdrawing 30 mL of spinal fluid on the next lumbar puncture.
says he is also had a PET/CT and MRI which did show an increased amount of fluid. He has been having spasms more recently and has been having some trouble swallowing leading to coughing.
-Patient's Bernadette also said that patient was at [facility] previously, was thought to have a seizure, placed on seizure medication which was stopped as later it was determined patient did NOT actually have a seizure,
but later was determined to have orthostatic hypotension, then went to [facility] for ~1 week, then returned home, followed up with his PCP Dr. Finesse Mccullough (had syncope in his office, found to have orthostasis)
-Patient's overall clinical picture seems neurologic, needs to follow-up with neurology at [facility] after BP is controlled
-Continue to monitor on telemetry
New Episodes of Urinary Incontinence
-Spoke with patient's Bernadette who said that this could be part of his suspected normal pressure hydrocephalus diagnosis
-Ordered L-Spine MRI, patient's Bernadette spoke with patient's [facility] neurologist/physicians and they were in agreement with the L-Spine MRI
-With history of back surgeries, check L-spine MRI as above
Constipation
-Bowel regimen
-Continue to monitor
History of Orthostatic Hypotension
-Many antihypertensives were previously weaned off
-Was previously on Midodrine but this was also weaned off
-Now BPs are high, started Verapamil as below
-Patient saw [facility] cardio Dr. Hess outpatient
-Consider RACHELL stockings and abdominal binder
Recent Collarbone Fracture from Fall
-Patient was supposed to see Dr. Nogueira
-Clavicle X-Ray from 12/10/24 showed as per radiologist's report: Mildly comminuted fracture of the distal left clavicle; Likely fracture of the left posterior sixth rib.
-Will discuss with cardiothoracic surgery and Dr. Nogueira, as per patient's 's request
Episode of urinary retention
-Monitor bladder scans
History of Episode of Rigidity
History of Acute Hyperkalemia
Paroxysmal Atrial Fibrillation
History of First Degree AV Block?
-Was previously on Eliquis and calcium channel ke, but not on current home med list this admission
-Eliquis would be high risk of bleeding given falls
-Patient's said that patient never had A-Fib after February 2024 hospitalization
Chronic HFpEF
-Stable
Nonobstructive Coronary Artery Disease
-No Aspirin on patient's home med list
Diabetes Mellitus, Type I
-Continue insulin pump
-Appreciate Diabetes TELECOMMUNICATIONS CLERK
CKD Stage IV
-Initial Cr 2.0
-Continue to monitor creatinine -- baseline in the past was reportedly around 2.4
Essential Hypertension
Hypertensive Urgency
-Continue Irbesartan (was on high dose previously but reduced due to orthostatic hypotension)
-Amlodipine small dose given on 12/10/24 morning, change to Verapamil 40 mg TID starting 12/10/24 as Verapamil can also help with muscle spasms
History of Bilateral Carotid Atherosclerosis
Hyperlipidemia
-Continue atorvastatin
Spinal Stenosis s/p Spinal Stimulator / Peripheral Neuropathy
History of Prostate Cancer?
Recent CT Findings (as per radiologist's report from 12/05/24)
1. Questionable proctitis. Recommend correlation with direct visualization to rule out underlying neoplasm.
2. Findings suggesting cystitis in the appropriate clinical context.
3. Small left pleural effusion.
4. Subacute to chronic partially healed lateral right 9th and 10th rib fractures.
-Will need further GI evaluation outpatient
Additional History:
(2006: Spinal cord injury, fall during hypoglycemic episode, fracture C spine, paralyzed for short time, had to learn to walk again. Vitrectomy, kidney disease, hepatitis,) and Other (Hernia,)
ED Past Surgical History: Other (hand surgery, c spine fusion, lumbar laminectomy)
DVT proph: SCDs. heparin subq
Code Status: Full Code
On 12/10/24, I called patient's Bernadette (I had also spoken to her on 12/09/24) and spoke to her extensively, and I answered all of her questions and concerns to satisfaction.
On 12/10/24, I [place] Texted patient's PCP Dr. Mccullough about patient being in the hospital, I also called patient's distribution sales representative Dr. Puma Bernal -- [phone], but he did not answer the phone.
On 12/11/24, patient's Bernadette stated to me that she will contact patient's [facility] physicians and update them on patient's hospitalization here, and if any concerns from their standpoint, patient's will let nurse and myself know.
On 12/12/24, patient's Bernadette contacted patient's [facility] physicians and told them about the management plan here for the patient, Bernadette told me the [facility] Physicians were in agreement with my plan (i.e. L-Spine MRI, Verapamil etc)
Anticipated Discharge: Within 24 hours
Subjective/Interval History
-
Date of Service: December 12, 2024
Patient was seen and examined. No new symptoms overnight.
Objective Data
-
Labs:
Laboratory Results
12/12/24
06:58
WBC 6.8
Hgb 12.3 L
Hct 35.6 L
Plt Count 303
Sodium Pending
Potassium Pending
Chloride Pending
Carbon Dioxide Pending
BUN Pending
Creatinine Pending
Glucose Pending
Calcium Pending
Vital Signs:
Vital Signs
Temp Pulse Resp BP Pulse Ox
98.1 F 80 18 131/69 98
12/12/24 03:51 12/12/24 03:51 12/12/24 03:51 12/12/24 03:51 12/12/24 03:51
I&O
12/11/24 12/12/24 12/13/24
06:59 06:59 06:59
Output Total 1050 / 1050 800 / 800
Balance -1050 / -1050 -800 / -800
[2024-12-12 07:54] LABS: Blood Urea Nitrogen 33 mg/dl (9-20); Calcium 8.9 mg/dl (8.4-10.2); Carbon Dioxide 28 mmol/L (22-30); Chloride 102 mmol/L (98-107); Estimated Creatinine Clearance 33 ml/min; Glucose 100 mg/dl (70-99); Potassium 3.8 mmol/L (3.5-5.1); Sodium 134 mmol/L (135-145); eGFR 37.82
[2024-12-12 08:00] VITALS: BP 146/72
[2024-12-12] MEDS: PAMELOR 10 MG PO (08:40)
[2024-12-12] MEDS: THERAGRAN 1 TABLET PO (08:40)
[2024-12-12] MEDS: AVAPRO 75 MG PO (08:40)
[2024-12-12] MEDS: VITAMIN B-12 1000 MCG PO (08:40)
[2024-12-12] MEDS: EFFEXOR XR 37.5 MG PO (08:41)
[2024-12-12] MEDS: ISOPTIN 40 MG PO ×3 (08:42→21:48)
[2024-12-12] MEDS: LIPITOR 10 MG PO (08:42)
[2024-12-12] MEDS: VITAMIN B1 100 MG PO (08:43)
[2024-12-12] MEDS: PATIENT'S OWN INSULIN PUMP SC ×3 (08:46→22:50)
[2024-12-12] MEDS: NOVOLOG FLEXPEN SC (08:52)
[2024-12-12 08:56] LABS: Glucose - Point of Care 126 mg/dl (70-99)
--- NOTE | 2024-12-12 10:37 | PN.DE.MGMTRT ---
Addendum entered and electronically signed by Viviana Fischer NP 12/12/24 13:46:
I spoke with GLORIA Schmidt at Dr. Bernal's office, [employer] outside sales representative. Pump settings were changed in September but never followed through on pump. Revised pump settings:
Basal
12am .55 (no change)
2am .45
8am .65
12pm .55
6pm .8
8:30pm .75 (no change
24 hour basal total 14.325
Will continue to deliver basal insulin via pump and bolus for meals administered by nurse.
Original Note:
Insulin Management
- -
12/12/2024: Diabetes Management Consult Follow up
79 year old male admitted s/p fall at home. He lives at home with his ; she reports he has been falling frequently. He has a known left clavicle fracture. He also notes some ongoing hip pain since before the fall. PMH: HTN, IDDM, Spinal cord
injury, fall during hypoglycemic episode, fracture C spine, paralyzed for short time, kidney disease and hepatitis, currently being worked up for Parkinson's disease versus Normal Pressure Hydrocephalus.. He is followed by b2b outside sales representative at [facility]
[address] Dr[address] Bernal. Last A1C was 6.4% in 02/2024. Current A1C 6.9%, cr 1.7, eGFR 40.50.
Uses Tandem T-Slim insulin pump with Humalog insulin, soft steel and DexCom G7 CGM.
12/10 Glucose range yesterday 104 to 112. Fasting glucose 108. states patient is very forgetful and often forgets to bolus. Today had pancakes and did not bolus. Glucose up to 368 pre lunch. After discussion with patient and , will
leave pump in place to deliver basal insulin but will administer 2 units novolog AC. Patient and agree he should not bolus at this time.
12/11 Fasting glucose 127. Glucose variable but acceptable due to patient condition and age. Control IQ remains on, basal insulin being delivered. Nurse to administer AC novolog 2 units.
12/12 Fasting glucoses 131. Yesterday glucose up to 269, at bedside changed infusion set, HS glucose 141. Will increase AC novolog from 2 units to 3 units. Lengthy discussion with regarding patient pump. She is tearful worried about
his decline. She is hopeful to connect with her contact at [facility] to determine next steps.
Pt states he independently manages his insulin pump and is comfortable with adm bolus at meal times. He denies any recent episodes of hypoglycemia. Due to current forgetfulness only the basal rates are running, patient is not administering bolus
while here.
Current pump settings:
Basal ICR ICF Target
12am 0.55 1:22 1:90 110
2am 0.5 1:26 1:90 110
8am 0.7 1:26 1:90 110
12pm 0.6 1:14 1:90 110
6pm 0.9 1:22 1:90 110
8:30pm 0.75 1:22 1:90 110
Active insulin 4 hours
24 hour total basal 15.375 units.
Will make no changes to current pump settings.
Discussed with Nurse
Will cont to follow.
Diabetes History
- -
Type of Diabetes: 1
Pre-Admission Diabetes Regimen
12/12/24
06:58
Creatinine 1.8 H
Lab Results
Hemoglobin A1c 6.9 % (4.0-5.9) H 12/09/24 08:15
Insulin Pump Settings
IP Diabetes Regimen
12/11/24 12/11/24 12/11/24
13:00 15:49 17:01
Glucose
POC Glucose 252 H 300 H 340 H
12/11/24 12/11/24 12/12/24
18:48 23:05 03:20
Glucose
POC Glucose 269 H 141 H 131 H
12/12/24 12/12/24
06:58 08:45
Glucose 100 H
POC Glucose 126 H
Meal type: Breakfast
Amount consumed: 100%
Patient Education
--- NOTE | 2024-12-12 11:47 | CM ---
Addendum entered by Cristy Milton 12/12/24 17:21:
Spoke to Betzy Cabrales, gave her number for [facility] so she could speak to RN directly.
Original Note:
Referral for [facility] placed in [facility]. Pt updated. Awaiting PMR consult.
[2024-12-12 12:15] VITALS: BP 146/82
[2024-12-12 12:23] LABS: Glucose - Point of Care 209 mg/dl (70-99)
[2024-12-12] MEDS: NOVOLOG FLEXPEN 3 UNITS SC ×2 (13:13→17:38)
[2024-12-12 15:20] VITALS: BP 138/83
--- NOTE | 2024-12-12 16:02 | PTCARENOTE ---
pt was sent to MRI, certified bench jeweler technician called floor shortly after saying pt was agitated and refusing MRI pulled off condom cath and stating he will not be having any MRI today.
[2024-12-12] MEDS: PATIENT'S OWN INSULIN PUMP 0.15 UNITS SC (17:38)
[2024-12-12 17:48] LABS: Glucose - Point of Care 240 mg/dl (70-99)
[2024-12-12] MEDS: TYLENOL 1000 MG PO (18:05)
[2024-12-12] MEDS: ULTRAM 50 MG PO (21:56)
[2024-12-12 22:23] LABS: Glucose - Point of Care 165 mg/dl (70-99)
[2024-12-12 23:57] VITALS: BP 114/85
[2024-12-13 03:28] VITALS: BP 165/99
[2024-12-13] MEDS: AVAPRO 75 MG PO (04:51)
[2024-12-13 05:17] VITALS: BMI 22.4
[2024-12-13 06:23] LABS: Hematocrit 36.4 % (39.0-52.0); Hemoglobin 12.7 g/dL (13.0-18.0); Mean Corp Hgb Conc. 34.9 g/dL (33.0-37.0); Mean Corpuscular Volume 95.8 fL (80.0-94.0); Platelet Count 334 10^3/uL (130-400); Red Cell Dist. Width 13.0 % (11.5-14.5)
[2024-12-13 06:48] LABS: Blood Urea Nitrogen 33 mg/dl (9-20); Calcium 9.2 mg/dl (8.4-10.2); Carbon Dioxide 27 mmol/L (22-30); Chloride 101 mmol/L (98-107); Estimated Creatinine Clearance 35 ml/min; Glucose 124 mg/dl (70-99); Potassium 3.9 mmol/L (3.5-5.1); Sodium 135 mmol/L (135-145); eGFR 40.50
--- NOTE | 2024-12-13 07:42 | PN.DE.MGMTRT ---
Insulin Management
- -
12/13/2024: Diabetes Management Consult Follow up
79 year old male admitted s/p fall at home. He lives at home with his ; she reports he has been falling frequently. He has a known left clavicle fracture. He also notes some ongoing hip pain since before the fall. PMH: HTN, IDDM, Spinal cord
injury, fall during hypoglycemic episode, fracture C spine, paralyzed for short time, kidney disease and hepatitis, currently being worked up for Parkinson's disease versus Normal Pressure Hydrocephalus.. He is followed by finisher machine at [facility]
[address] Dr. Bernal. Last A1C was 6.4% in 02/2024. Current A1C 6.9%, cr 1.7, eGFR 40.50.
Uses Tandem T-Slim insulin pump with Humalog insulin, soft steel and DexCom G7 CGM.
Pt awake, alert, oriented, sitting up in chair, offers no complaints. at bedside.
states patient is very forgetful and often forgets to bolus. After discussion with patient and , it was decided to leave pump in place to deliver basal insulin administer NovoLog AC.
12/12 Fasting glucose 124. premeal glucose 126 to 240, has been variable but acceptable due to patient condition and age. Control IQ remains on, basal insulin being delivered. Nurse to administer AC NovoLog 3 units.
Lengthy discussion with regarding taking off insulin pump once pt is in rehab because she will not be able to assist him with managing the pump.
Due to current forgetfulness only the basal rates are running, patient is not administering bolus while here.
Contacted Dr. Bernal's office, [place] finisher machine. Pump settings were changed in September but pt and never followed through to make changes in the pump, revised pump settings yesterday.
Current pump settings:
Basal ICR ICF Target
12am 0.55 1:22 1:90 110
2am 0.45 1:26 1:90 110
8am 0.65 1:26 1:90 110
12pm 0.55 1:14 1:90 110
6pm 0.8 1:22 1:90 110
8:30pm 0.75 1:22 1:90 110
24 hour basal total 14.325 units
Will continue to deliver basal insulin via pump and bolus for meals with 3 units NovoLog to be administered by nurse.
At discharge to rehab, pt will be transitioned off his insulin pump to basal bolus insulin: Lantus 14 units in AM and NovoLog 3 units AC.
Discussed with pt and in detail. Will cont to follow
Diabetes History
- -
Type of Diabetes: 1
Pre-Admission Diabetes Regimen
12/12/24 12/13/24
06:58 05:54
Creatinine 1.8 H 1.7 H
Lab Results
Hemoglobin A1c 6.9 % (4.0-5.9) H 12/09/24 08:15
Insulin Pump Settings
IP Diabetes Regimen
12/12/24 12/12/24 12/12/24
06:58 08:45 12:12
Glucose 100 H
POC Glucose 126 H 209 H
12/12/24 12/12/24 12/13/24
17:36 22:21 05:54
Glucose 124 H
POC Glucose 240 H 165 H
Meal type: Breakfast
Amount consumed: 100%
Patient Education
--- NOTE | 2024-12-13 08:09 | W.PN.HOSP.TC ---
Today's Communication/Plan
-
Pending L-Spine MRI and [facility]
Assessment / Plan
Assessment / Plan
Physical Exam
General: No Apparent Distress and Conversant
HEENT: Normocephalic
Respiratory: Clear
Cardiac: S1/S2 and Regular Rhythm
GI: Soft, Non Tender and Normal Bowel Sounds
Musculoskeletal: No Cyanosis and No Edema
Skin: Warm and Dry
Neuro: Awake, Alert, AO x 3, No Motor Deficits, Nonfocal/grossly intact and No Sensory Deficits
Psych: Calm and Intact Judgment/Insight
Assessment/Plan
79 y/o male with past medical history of CHF, CAD, diabetes mellitus, CKD, essential hypertension, hyperlipidemia, spinal stenosis status post spinal stimulator and peripheral neuropathy presented after falling multiple times, as well as ambulatory
dysfunction. He fell on 12/08/24 hitting his head. Initial CT Head was thought to show a subdural hematoma, repeat CT head was done showing that the small subdural hematoma that was previously thought to exist was no longer there, and it was thought
to be artifact. Patient had been complaining of right hip pain, likely from the fall. He denied passing out, chest pain, abdominal pain, nausea or vomiting.

Presentation with frequent falls, gait dysfunction, right hip pain
-Per patient and his , these most recent falls have NOT been associated with syncope
-Discussed with cardiology -- falls appear to be neurologic in nature, but still check echocardiogram
-Per report, patient apparently had been at [facility] for balance issues and there was consideration of NPH versus Parkinson's.
-He fell last week and was seen at [place] and had a left clavicular fracture he had a headache when he was here 2 days around 12/05/24. His blood pressure was also elevated in the ED last time and was given irbesartan.
CAT scan of the abdomen and pelvis 2 days ago showed questionable proctitis (will need colonoscopy), suggestion of cystitis, small left pleural effusion, subacute to chronic partially healed lateral right 9th and 10th rib fractures.
CAT scan of the brain at that time was unremarkable.
-Patient was reportedly seen at 5 different hospitals for syncope over the past few weeks
-Patient's stated that patient had been evaluated for normal pressure hydrocephalus and will be going back to [facility] for them to do physical therapy before and after withdrawing 30 mL of spinal fluid on the next lumbar puncture.
says he is also had a PET/CT and MRI which did show an increased amount of fluid. He has been having spasms more recently and has been having some trouble swallowing leading to coughing.
-Patient's Bernadette also said that patient was at [facility] previously, was thought to have a seizure, placed on seizure medication which was stopped as later it was determined patient did NOT actually have a seizure,
but later was determined to have orthostatic hypotension, then went to [facility] for ~1 week, then returned home, followed up with his PCP Dr. Finesse Mccullough (had syncope in his office, found to have orthostasis)
-Patient's overall clinical picture seems neurologic, needs to follow-up with neurology at [facility] after BP is controlled
-I communicated via [place] Text with Dr. Brandt (crisis nurse) who saw the patient and he mentioned that patient most likely has Parkinson�s Disease (had shuffling gait, increased tone in therapy,
retropulsion, and patient has cognitive issues, blood pressure issues, bowel and bladder issues, swallowing concerns) and Supine Hypertension and Orthostasis -- patient and his would like to go to
[facility] and bed availability over there is in progress; the patient can�t manage his insulin pump on his own so nobody will take him in acute rehab with it -- on discharge will need to switch to subq
Insulin (see Diabetes ARROW POINT ATTACHER note)
-Continue to monitor on telemetry
New Episodes of Urinary Incontinence
-Spoke with patient's Bernadette who said that this could be part of his suspected normal pressure hydrocephalus diagnosis
-Ordered L-Spine MRI, patient's Bernadette spoke with patient's [facility] neurologist/physicians and they were in agreement with the L-Spine MRI
-With history of back surgeries, check L-spine MRI as above
-Could be from possible Parkinson's Disease
Constipation
-Bowel regimen
-Continue to monitor
Recent Collarbone Fracture from Fall
-Patient was supposed to see Dr. Nogueira
-Clavicle X-Ray from 12/10/24 showed as per radiologist's report: Mildly comminuted fracture of the distal left clavicle; Likely fracture of the left posterior sixth rib.
-Will discuss with cardiothoracic surgery and Dr. Nogueira, as per patient's 's request
Episode of urinary retention
-Monitor bladder scans
History of Episode of Rigidity
History of Acute Hyperkalemia
Paroxysmal Atrial Fibrillation
History of First Degree AV Block?
-Was previously on Eliquis and calcium channel ke, but not on current home med list this admission
-Eliquis would be high risk of bleeding given falls
-Patient's said that patient never had A-Fib after February 2024 hospitalization
Chronic HFpEF
-Stable
Nonobstructive Coronary Artery Disease
-No Aspirin on patient's home med list
Diabetes Mellitus, Type I
-Continue insulin pump
-Appreciate Diabetes ARROW POINT ATTACHER
CKD Stage IV
-Initial Cr 2.0
-Continue to monitor creatinine -- baseline in the past was reportedly around 2.4
Essential Hypertension
Hypertensive Urgency
Orthostatic Hypotension -- suspected related to autonomic dysfunction, possible Parkinson's Disease in the setting of shuffling gait
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
-Continue Irbesartan (was on high dose previously but reduced due to orthostatic hypotension)
-Amlodipine small dose given on 12/10/24 morning, change to Verapamil 40 mg TID starting 12/10/24 as Verapamil can also help with muscle spasms
-Although patient's blood pressure tends to be quite high at times, he still has significant orthostatic hypotension (e.g. on 12/13/24, patient was seen by PT/OT: patient got dizzy during this session - starting BP was 195/92, after was 125/75)
History of Orthostatic Hypotension
-Many antihypertensives were previously weaned off
-Was previously on Midodrine but this was also weaned off
-Then BPs became high, started Verapamil as below
-Patient saw [facility] cardio Dr. Hess outpatient
-Consider RACHELL stockings and abdominal binder
History of Bilateral Carotid Atherosclerosis
Hyperlipidemia
-Continue atorvastatin
Spinal Stenosis s/p Spinal Stimulator / Peripheral Neuropathy
History of Prostate Cancer?
Recent CT Findings (as per radiologist's report from 12/05/24)
1. Questionable proctitis. Recommend correlation with direct visualization to rule out underlying neoplasm.
2. Findings suggesting cystitis in the appropriate clinical context.
3. Small left pleural effusion.
4. Subacute to chronic partially healed lateral right 9th and 10th rib fractures.
-Will need further GI evaluation outpatient
Additional History:
(2006: Spinal cord injury, fall during hypoglycemic episode, fracture C spine, paralyzed for short time, had to learn to walk again. Vitrectomy, kidney disease, hepatitis,) and Other (Hernia,)
ED Past Surgical History: Other (hand surgery, c spine fusion, lumbar laminectomy)
DVT proph: SCDs. heparin subq
Code Status: Full Code
On 12/10/24, I called patient's Bernadette (I had also spoken to her on 12/09/24) and spoke to her extensively, and I answered all of her questions and concerns to satisfaction.
On 12/10/24, I [place] Texted patient's PCP Dr. Mccullough about patient being in the hospital, I also called patient's enzyme chemist Dr. Puma Bernal -- [phone], but he did not answer the phone.
On 12/11/24, patient's Bernadette stated to me that she will contact patient's [facility] physicians and update them on patient's hospitalization here, and if any concerns from their standpoint, patient's will let nurse and myself know.
On 12/12/24, patient's Bernadette contacted patient's [facility] physicians and told them about the management plan here for the patient, Bernadette told me the [facility] Physicians were in agreement with my plan (i.e. L-Spine MRI, Verapamil etc)
On 12/13/24, I spoke to patient's Bernadette and spoke to her extensively, and I answered all of her questions and concerns to satisfaction.
Anticipated Discharge: 24 - 48 hours
Subjective/Interval History
-
Date of Service: December 13, 2024
Patient was seen and examined. He denied any new symptoms or complaints.
Objective Data
-
Labs:
Laboratory Results
12/13/24
05:54
WBC 6.1
Hgb 12.7 L
Hct 36.4 L
Plt Count 334
Sodium 135
Potassium 3.9
Chloride 101
Carbon Dioxide 27
BUN 33 H
Creatinine 1.7 H
Glucose 124 H
Calcium 9.2
Vital Signs:
Vital Signs
Temp Pulse Resp BP Pulse Ox
98.3 F 80 16 169/83 100
12/13/24 03:28 12/13/24 04:51 12/13/24 03:28 12/13/24 04:51 12/13/24 03:28
I&O
12/12/24 12/13/24 12/14/24
06:59 06:59 06:59
Intake Total 720 / 720
Output Total 800 / 800 1350 / 1350
Balance -800 / -800 -630 / -630
--- NOTE | 2024-12-13 08:38 | CON.MD ---
Consultation - Medical
-
Chief Complaint:�Falls, ambulatory dysfunction
�
History of Present Illness:�79-year-old male with PMH (as below) presented to [facility] on 12/09/2024 with multiple falls including hitting his head on 12/08/2024. Initial CT of the head thought to show subdural hematoma, repeat CT of the
head with no subdural hematoma and prior subdural hematoma concern was thought to be artifact. Patient with right hip pain from the fall. Per records patient has been to [facility] for balance issues with consideration of NPH versus Parkinson's
disease. He had a fall 1 week prior to admission and was seen at [place] for a left clavicle fracture. Nonweightbearing left upper extremity with sling plan was to follow-up with Dr. Nogueira. He is also noted to have elevated blood pressure at
that time. A CT of the abdomen and pelvis 2 days prior to admission noting questionable proctitis with plan for colonoscopy, suggestion of cystitis, small left pleural effusion, subacute to chronic partially healed lateral right 9th and 10th rib
fractures. Patient notes having spasms more recently and has more trouble swallowing leading to coughing. He has had some urinary retention.
He was seen by cardiology who feels that his falls are not related to cardiovascular disease. Patient getting MRI of the lumbar spine.
Overall he has been having more problems with falls. He has had some other concerns particular with volatile blood pressure elevated at times and drops at other times. He has had episodes of feeling achy his going to pass out with his legs then
buckling and him following to the ground. During some these episodes he has had his eyes rolled back and have seizure-like activity but was found on testing to not have any seizure activity on EEG. He had a concern for NPH and had a lumbar
puncture done at [facility] without significant improvements. He did not have therapy before and after the testing. He went to see a clinic at [facility] for normal pressure hydrocephalus. Per his they are not sure that he has this
diagnosis but a large volume lumbar puncture would help determine. Someone else brought up the possibly that he has has Parkinson's or a similar diagnosis of Parkinson's. He has had difficulties with swallowing, bowel and bladder issues as well as
recent difficulties with memory that have been mild and variable. They have not necessarily correlated to the episodes where he feels like he is going to pass out. Overall pain is controlled with his fracture and he is wearing a splint with
nonsurgical management of the collarbone.
He has an insulin pump but is not able to manage it on his own at this time.
�
Past Medical History: type 1 diabetes on insulin pump, HTN, CKD stage IIIB, diabetic neuropathy/retinopathy/nephropathy, cervical spinal cord injury C2/C3 with transient paresis 2005, chronic back pain, former smoker, hepatitis A, Escherichia coli
bacteremia, prostate CA, right knee OA
Procedure History: Hand surgery, cervical fusion, L1-L4 laminectomy, prostate biopsy 01/16/18, vitrectomy left eye 1981, prostatectomy
Family History: Noncontributory
Family Physician: Finesse Mccullough
�
Social History:�
Functional Level Premorbidly:�Independent with all activities�
Functional Level Currently:�Min assist for bed mobility and transfers. Mod assist of 2 people ambulating 4 feet with shuffling gait and posterior lean
�
Tobacco:�Former
Alcohol:�Daily
Drug use:�Denies�
�
Lives with:�
24-hour assistance available:�Yes
Number of floors:�2
# steps to enter:�1
# steps to second floor: Full flight
Potential First floor set up:�Yes has accessible first-floor suite
Driving:�No, he stopped driving
Occupation:�Retired
�
Allergies:�
Allergy/AdvReac Type Severity Reaction Status Date / Time
NANCY Inhibitors Allergy Angioedema Verified 12/08/24 17:32
bee pollen Allergy swelling, Verified 12/08/24 17:32
anaphylaxis
bee venom protein (honey bee) Allergy swelling, Verified 12/08/24 17:32
anaphylaxis
ciprofloxacin Allergy Hives Verified 12/08/24 17:32
naproxen (From Aleve) Allergy d/t kidney Verified 12/08/24 17:32
disease
Penicillins Allergy Anaphylaxis; Verified 12/08/24 17:32
tolerated
cefepime &
meropenem
�
Review of Systems:�
Constitutional: (x) abNormal _fatigue, falls
Eye: (x) abNormal _diabetic retinopathy for which he stopped driving
Ear/Nose/Throat: (x) Normal _
Respiratory: (x) Normal _
Cardiovascular: (x) abNormal _high and low blood pressure with episodes of passing out
Gastrointestinal: (x) abNormal _constipation
Genitourinary: (x) abNormal _ bladder difficulties with incontinence
Musculoskeletal: (x) abNormal _stiffness in muscles
Integumentary: (x) Normal _
Neurologic: (x) abNormal _diabetic neuropathy
Psychiatric: (x) Normal _
Endocrine: (x) abNormal _type 1 diabetes
Hematologic/Lymphatic: (x) Normal _
Allergic/Immunologic: (x) Normal _
�
Medications:�
Active Current Visit Medication List
Category Date Time Status
Acetaminophen [Tylenol] Med 12/09/24 12:13 Active
1,000 mg PO QID PRN
Albuterol [ProAIR HFA INHALER] Med 12/09/24 11:48 Active
2 puff INH R Q4HPRN PRN SOB
Atorvastatin [Lipitor] Med 12/09/24 11:48 Active
10 mg PO DAILY
Bisacodyl [Dulcolax] Med 12/09/24 11:48 Active
10 mg RECTAL [id number] PRN
Cyanocobalamin [Vitamin B-12] Med 12/10/24 08:00 Active
1,000 mcg PO DAILY
Docusate W/Senna [Senokot-S] Med 12/09/24 11:48 Active
1 tablet PO BIDPRN PRN
Heparin Med 12/10/24 08:00 Active
5,000 units SC Q8
Insulin Aspart Pen [Novolog Flexpen] Med 12/12/24 08:01 Active
3 units SC AC
Insulin Pump [Patient's Own Insulin Pump] Med 12/09/24 16:30 Active
See Dose Instructions SC ACHS
Insulin Pump [Patient's Own Insulin Pump] Med 12/09/24 12:54 Active
See Dose Instructions SC PRN PRN
Irbesartan [Avapro] Med 12/09/24 14:00 Active
75 mg PO DAILY
Multivitamin [Theragran] Med 12/09/24 18:20 Active
1 tablet PO DAILY
Nortriptyline [Pamelor] Med 12/09/24 13:00 Active
10 mg PO DAILY
Polyethylene Glycol Powder [Miralax] Med 12/09/24 11:48 Active
17 grams PO DAILYPRN PRN
Thiamine HCl [Vitamin B1] Med 12/09/24 13:00 Active
100 mg PO DAILY
Tramadol HCl [Ultram] Med 12/09/24 11:48 Active
50 mg PO TIDPRN PRN severe pain
Venlafaxine Extended Release [Effexor Xr] Med 12/09/24 12:00 Active
37.5 mg PO DAILY
Verapamil [Isoptin] Med 12/10/24 22:00 Active
40 mg PO TID
�
Vitals:�
Temp Pulse Resp BP Pulse Ox
98.2 F 87 16 196/108 99
12/13/24 09:56 12/13/24 09:56 12/13/24 09:56 12/13/24 09:56 12/13/24 09:56
Height 5 ft 10 in
Actual Weight 70.806 kg
Body Mass Index (BMI) 22.4
�
Physical Exam:
General Appearance/Observation: Well-developed, well-nourished male in no apparent distress.
Pain/Comfort Assessment: Mild neck and right knee pain.
Mood/Affect: Appropriate
Integumentary/Operative Site:
Pressure Ulcer: absent
Eyes: Conjunctiva/Lids: normal Pupils: pupils equal round and reactive to light and Accommodation
Ears/Nose/Throat: oral mucosa moist, throat clear.
Neck: Decreased range of motion, mild spasm bilaterally, slight tenderness
Cardiovascular: Heart: regular, no murmur
Pulses: dorsalis pedis 2+ bilaterally
Respiratory: Respiratory Effort/Chest Expansion: normal Auscultation: Clear to auscultation bilaterally
Gastrointestinal: abdomen not tender, no distension, normal abdominal bowel sounds
Genitourinary: No Mg
Rectal Exam: Deferred
Extremities: Edema: Bilateral pedal edema Cyanosis: None
Neurology Exam:
Orientation: Alert, Oriented to self, Time, Place
Memory: Intact for recent medical concerns
Comprehension: Intact
Two step command: Intact
Cranial Nerves:
CNII: Pupillary light reflex: Intact Visual Field: Intact
CN III, IV, : Extraocular muscles: Intact
CN VII: Facial movement: Symmetric
CN VIII: Hearing: Normal
CN IX/X: Speech & swallow: Normal, Position of Uvula: Midline
CN XI: Shoulder shrug: Symmetric
CN XII: Tongue protrusion: Midline
Sensory:
Light touch: Intact in bilateral upper and lower extremities, Except for decrease in bilateral fingers
Reflexes:
Biceps: 3+ bilaterally
Brachioradialis: 3+ bilaterally
Triceps: 3+ bilaterally
Patellar: 3+ bilaterally
Achilles: 3+ bilaterally
Babinski: Upgoing bilaterally
Clonus: None
Zack: Positive bilaterally
Cerebellar: Dysmetria/Ataxia: None
Musculoskeletal:
Motor: (Manual muscle scale 0-5)
Muscle SA EF WE EE FF FA HF KE DF EHL PF
Right 4 5 5 5 5 4 3 5 5 5
Left NT NT 5 NT 5 4 3 5 5 5
Tone: Normal in all extremities
Range of Motion: Passively within functional limits in all extremities, decreased bilateral shoulders
�
Lab Results
Laboratory Data
12/13/24 05:54
12/13/24 05:54
Total Bilirubin 1.2 mg/dl (0.2-1.3) 12/09/24 08:15
AST 20 U/L (17-59) 12/09/24 08:15
ALT 17 U/L (0-50) 12/09/24 08:15
Alkaline Phosphatase 124 U/L (38-126) 12/09/24 08:15
Total Protein 7.2 g/dl (6.3-8.2) 12/09/24 08:15
Albumin 4.1 g/dl (3.5-5.0) 12/09/24 08:15
Diagnostic Results:�as per HPI�
�
Assessment
79-year-old RHD M [facility] (type 1 diabetes on insulin pump, HTN, CKD stage IIIB, diabetic neuropathy/retinopathy/nephropathy, cervical spinal cord injury C2/C3 with transient paresis 2005, chronic back pain, former smoker, hepatitis A) with recent left
clavicle fracture with NWB in sling with recent falls and uncontrolled BP - with ADL and ambulatory dysfunction
�
Plan�
PM&R�PT/OT to increase independence with ADLs, improve balance, coordination, endurance, strength, mobility, community reintegration, decreased burden of care on others and family education.�
?Parkinson's disease or Multisystem atrophy: Has multiple falls, some new concerns with cognition, swallowing. Worsening orthostasis. Therapy noting a shuffled gait with retropulsion and increased stiffness in the extremities. Having some
difficulties with bowel and bladder. Had a LP with no significant changes with concern of NPH. Could still have a high-volume LP at [facility] but according to they are not confident that he has normal pressure hydrocephalus. Could
benefit from a Sinemet trial to see if there is significant improvement with his gait. Follow-up with outpatient neurology.
Left clavicle fracture: Nonweightbearing and in sling. Follow-up with Dr. Nogueira as an outpatient.
Type 1 diabetes: Concern for managing own insulin pump. Accu-Cheks, insulin sliding scale, NovoLog, lantus on discharge.
Peripheral polyneuropathy: Patient at high risk of falling with neuropathy.� Nortriptyline
Supine HTN?: Can try amlodipine at dinner, can change to nifedipine if BP at night remains elevated. Would hold irbesartan and verapamil
Orthostasis:
-Can be from various neuropathies, neuropathy with age, renal disease.�
-Thigh-high teds and abdominal binder first in the morning and off at bedtime.
-Must maintain hydration.� IV fluid as necessary.
-Midodrine 10 mg at 0600 before getting out of bed and sitting for 30 minutes and 1200.�Would avoid evening dose with possible increase in blood pressure in supine position.
-If midodrine does not work and no heart failure history, could fludrocortisone 0.1 mg daily and titrate up.
-Suggest dosing blood pressure medications such as amlodipine at dinner for supine hypertension and not giving blood pressure medications in the morning.
-Would avoid IV blood pressure medications, which can cause drastic change and make more concerns with stroke or syncope.
-Can keep head of bed up at 30 degrees or higher as much as possible to prevent the increasing of blood pressure when lying flat and worsening drop the more he comes up from supine position.
-Suggest being up out of bed is much as possible throughout the day to prevent supine HTN.�
-Increase leg and arm exercises to help with increasing blood pressure particularly prior to sitting or standing up.
Falls: Likely multifactorial
1. ? Parkinson's disease/MSA
2. Peripheral diabetic polyneuropathy
3. Alcohol use: Alcohol cessation, can also cause neuropathy
4. Diabetic retinopathy can cause vision issues, he stopped driving because of this
5. Cervical spinal cord injury history
6. Orthostasis, has had drop in blood pressure and episodes of passing out with seizure-like activity.
7. Cognitive concerns: could be from frequent orthostasis or parkinson's disease.
Dysphagia concern: Speech evaluation, could consider swallow study.
Coronary artery disease: Aspirin, statin, beta-ke
Macrocytic anemia: Likely multifactorial, has renal disease. Continue to monitor.
Psych: Venlafaxine
Skin: monitor for pressure sores/rashes/lesions.
Pain: acetaminophen as needed.
Bowel: Colace, senna. As needed Dulcolax
Bladder: Time void, PVRs, PRN straight cath.
Alcohol use: Alcohol cessation education, offering of outpatient alcohol abuse program, on folic acid and thiamine
DVT Prophylaxis: Mechanical and heparin
Pulmonary: Incentive spirometry
Safety: Continue to reinforce assistance with all transfers.
Code Status: Full code
Dispo (date/plan/equipment needs): Home with family care. Social history reviewed.
Functional and Medical Goals:�Modified Independent with ADL�s, ambulation, transfers�
Discharge Destination:�Acute inpatient rehabilitation likely with Parkinson's disease and orthostatic hypotension with supine hypertension causing less differences in blood pressure throughout the day. Hypotension
A total of 80 minutes were spent with the patient preparing for the evaluation, obtaining history, performing examination and evaluation, counseling, data review, case management, care coordination, order runner, and EMR documentation. Case
discussed with hospitalist, agricultural equipment sales manager, liaison, patient, and .
�
Thank you for allowing me to care for your patient. Please contact me with any questions or concerns.
Consultation
-
Date/Time Consultation Requested: 12/11/24
Date/Time Consultation Performed: 12/13/24
Requesting Provider: Dr. Marc Phillips
Performing Provider: Dr. Raghav Brandt
Reason for Consultation: Falls
[2024-12-13 09:40] LABS: Glucose - Point of Care 123 mg/dl (70-99)
[2024-12-13] MEDS: NOVOLOG FLEXPEN SC ×2 (09:50→10:14)
[2024-12-13] MEDS: PAMELOR 10 MG PO (09:52)
[2024-12-13] MEDS: VITAMIN B1 100 MG PO (09:52)
[2024-12-13] MEDS: EFFEXOR XR 37.5 MG PO (09:52)
[2024-12-13] MEDS: VITAMIN B-12 1000 MCG PO (09:53)
[2024-12-13] MEDS: LIPITOR 10 MG PO (09:53)
[2024-12-13] MEDS: HEPARIN 5000 UNITS SC ×3 (09:53→23:35)
[2024-12-13] MEDS: THERAGRAN 1 TABLET PO (09:53)
[2024-12-13] MEDS: ISOPTIN 40 MG PO ×3 (09:54→21:44)
[2024-12-13 09:56] VITALS: BP 196/108
[2024-12-13] MEDS: PATIENT'S OWN INSULIN PUMP SC ×2 (10:15→22:50)
[2024-12-13 10:59] VITALS: BP 125/75; BP 195/92; PULSE 82; O2SAT 99
[2024-12-13 11:01] VITALS: BP 125/75; BP 195/92
[2024-12-13] MEDS: AVAPRO PO (11:20)
[2024-12-13] MEDS: ULTRAM 50 MG PO ×2 (11:22→21:47)
[2024-12-13 11:54] LABS: Glucose - Point of Care 230 mg/dl (70-99)
[2024-12-13 11:56] VITALS: BP 160/81
[2024-12-13] MEDS: NOVOLOG FLEXPEN 3 UNITS SC ×2 (12:29→17:53)
[2024-12-13] MEDS: PATIENT'S OWN INSULIN PUMP 0.13 UNITS SC (12:29)
--- NOTE | 2024-12-13 13:32 | CM ---
Addendum entered by Sumanth Zhang 12/13/24 14:27:
Both pt and his spouse requested now [facility] rehab. Referral to [facility] rehab made.
Original Note:
CM following re: discharge planning.
Reviewed pt's chart, met with pt and pt's spouse at bedside.
PT, OT and PM&R evaluations noted - acute rehab level of care recommended. Both pt and his spouse are aware and they requested [facility].
CM spoke to [facility] rehabilitation inspector Samra [phone] and she stated that they will not accept the pt with insulin pump and if insulin pump will be off pt must to tolerate insulin for 24 hours prior to admission to [facility]. At this time, Samra
stated she will follow up on Monday.
[facility].
D/C plan: [facility] rehab
CM will follow to assit pt with discharge to [facility].
[2024-12-13 15:41] VITALS: BP 154/86
[2024-12-13] MEDS: TYLENOL 1000 MG PO (15:44)
[2024-12-13 16:51] LABS: Glucose - Point of Care 205 mg/dl (70-99)
[2024-12-13] MEDS: PATIENT'S OWN INSULIN PUMP 0.14 UNITS SC (17:10)
[2024-12-13 21:41] LABS: Glucose - Point of Care 204 mg/dl (70-99)
[2024-12-14] VITALS: BP 166/79
[2024-12-14 07:50] VITALS: BP 183/81
[2024-12-14 07:55] LABS: Glucose - Point of Care 162 mg/dl (70-99)
[2024-12-14] MEDS: NOVOLOG FLEXPEN 3 UNITS SC ×3 (09:18→17:59)
[2024-12-14] MEDS: HEPARIN 5000 UNITS SC ×3 (09:19→23:13)
[2024-12-14] MEDS: TYLENOL 1000 MG PO ×2 (09:19→23:21)
[2024-12-14] MEDS: AVAPRO 75 MG PO ×2 (09:20→20:46)
[2024-12-14] MEDS: VITAMIN B1 100 MG PO (09:21)
[2024-12-14] MEDS: EFFEXOR XR 37.5 MG PO (09:21)
[2024-12-14] MEDS: ISOPTIN 40 MG PO ×3 (09:21→21:45)
[2024-12-14] MEDS: THERAGRAN 1 TABLET PO (09:21)
[2024-12-14] MEDS: VITAMIN B-12 1000 MCG PO (09:22)
[2024-12-14] MEDS: PAMELOR 10 MG PO (09:22)
[2024-12-14] MEDS: LIPITOR 10 MG PO (09:22)
[2024-12-14] MEDS: ULTRAM 50 MG PO (09:48)
[2024-12-14 12:14] LABS: Glucose - Point of Care 298 mg/dl (70-99)
[2024-12-14] MEDS: PATIENT'S OWN INSULIN PUMP 1.8 UNITS SC (12:15)
[2024-12-14] MEDS: PATIENT'S OWN INSULIN PUMP SC ×2 (12:21→21:53)
[2024-12-14 15:09] VITALS: BP 161/68
--- NOTE | 2024-12-14 15:11 | W.PN.HOSP.TC ---
Today's Communication/Plan
-
MRI L-Spine completed; await results
Verapamil increased from 40 mg TID to 50 mg TID for better blood pressure control
[facility] placement early next week
Assessment / Plan
Assessment / Plan
Physical Exam
General: No Apparent Distress and Conversant
HEENT: Normocephalic
Respiratory: Clear
Cardiac: S1/S2 and Regular Rhythm
GI: Soft, Non Tender and Normal Bowel Sounds
Musculoskeletal: No Cyanosis and No Edema
Skin: Warm and Dry
Neuro: Awake, Alert, AO x 3, No Motor Deficits, Nonfocal/grossly intact and No Sensory Deficits
Psych: Calm and Intact Judgment/Insight
Assessment/Plan
79 y/o male with past medical history of CHF, CAD, diabetes mellitus, CKD, essential hypertension, hyperlipidemia, spinal stenosis status post spinal stimulator and peripheral neuropathy presented after falling multiple times, as well as ambulatory
dysfunction. He fell on 12/08/24 hitting his head. Initial CT Head was thought to show a subdural hematoma, repeat CT head was done showing that the small subdural hematoma that was previously thought to exist was no longer there, and it was thought
to be artifact. Patient had been complaining of right hip pain, likely from the fall. He denied passing out, chest pain, abdominal pain, nausea or vomiting.

Presentation with frequent falls, gait dysfunction, right hip pain
History of Syncope from Orthostatic Hypotension
-Per patient and his , these most recent falls have NOT been associated with syncope (but in the past they have been, and in the past, extensive syncope was done)
-Discussed with cardiology -- falls appear to be neurologic in nature, but still check echocardiogram
-Per report, patient apparently had been at [facility] for balance issues and there was consideration of NPH versus Parkinson's.
-He fell last week and was seen at [facility] and had a left clavicular fracture he had a headache when he was here 2 days around 12/05/24. His blood pressure was also elevated in the ED last time and was given irbesartan.
CAT scan of the abdomen and pelvis 2 days ago showed questionable proctitis (will need colonoscopy), suggestion of cystitis, small left pleural effusion, subacute to chronic partially healed lateral right 9th and 10th rib fractures.
CAT scan of the brain at that time was unremarkable.
-Patient was reportedly seen at 5 different hospitals for syncope over the few weeks prior to this hospitalization
-Patient's stated that patient had been evaluated for normal pressure hydrocephalus and will be going back to [facility] for them to do physical therapy before and after withdrawing 30 mL of spinal fluid on the next lumbar puncture.
says he is also had a PET/CT and MRI which did show an increased amount of fluid. He has been having spasms more recently and has been having some trouble swallowing leading to coughing.
-Patient's Bernadette also said that patient was at [facility] previously, was thought to have a seizure, placed on seizure medication which was stopped as later it was determined patient did NOT actually have a seizure,
but later was determined to have orthostatic hypotension, then went to [facility] for ~1 week, then returned home, followed up with his PCP Dr. Finesse Mccullough (had syncope in his office, found to have orthostasis)
-Patient's overall clinical picture seems neurologic, needs to follow-up with neurology at [facility] after blood pressure is controlled, and acute rehab stay is completed
-I communicated via [facility] Text with Dr. Brandt (pebble mill operator) who saw the patient and he mentioned that patient most likely has Parkinson�s Disease (had shuffling gait, increased tone in therapy,
retropulsion, and cognitive issues, blood pressure issues, bowel and bladder issues, swallowing concerns) and Supine Hypertension and Orthostasis -- patient and his would like to go to
[facility] and bed availability over there is in progress; the patient can�t manage his insulin pump on his own so nobody will take him in acute rehab with it -- on discharge will need to switch to subq
Insulin (see Diabetes RULING MACHINE FEEDER note)
-Continue to monitor on telemetry
New Episodes of Urinary Incontinence
-Spoke with patient's Bernadette who said that this could be part of his suspected normal pressure hydrocephalus diagnosis
-Ordered L-Spine MRI, patient's Bernadette spoke with patient's [facility] neurologist/physicians and they were in agreement with the L-Spine MRI
-With history of back surgeries, check L-spine MRI as above
-Could be from possible Parkinson's Disease
Constipation
-Bowel regimen
-Continue to monitor
Recent Collarbone Fracture from Fall
-Patient was supposed to see Dr. Nogueira
-Clavicle X-Ray from 12/10/24 showed as per radiologist's report: Mildly comminuted fracture of the distal left clavicle; Likely fracture of the left posterior sixth rib.
-Discussed with cardiothoracic surgery and Dr. Nogueira --> use sling, nothing else to do right now
Episode of urinary retention
-Monitor bladder scans
History of Episode of Rigidity
History of Acute Hyperkalemia
Paroxysmal Atrial Fibrillation
History of First Degree AV Block?
-Was previously on Eliquis and calcium channel ke, but not on current home med list this admission
-Eliquis would be high risk of bleeding given falls
-Patient's said that patient never had A-Fib after February 2024 hospitalization
Chronic HFpEF
-Stable
Nonobstructive Coronary Artery Disease
-No Aspirin on patient's home med list
Diabetes Mellitus, Type I
-Continue insulin pump
-Appreciate Diabetes RULING MACHINE FEEDER
CKD Stage IV
-Initial Cr 2.0
-Continue to monitor creatinine -- baseline in the past was reportedly around 2.4
Essential Hypertension
Hypertensive Urgency
Orthostatic Hypotension -- suspected related to autonomic dysfunction, possible Parkinson's Disease in the setting of shuffling gait
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
-Continue Irbesartan (was on high dose previously but reduced due to orthostatic hypotension)
-Amlodipine small dose given on 12/10/24 morning, Verapamil 40 mg TID initially started 12/10/24 as Verapamil can also help with muscle spasms --> increased to 50 mg TID given high blood pressures
-Although patient's blood pressure tends to be quite high at times, he still has significant orthostatic hypotension (e.g. on 12/13/24, patient was seen by PT/OT: patient got dizzy during this session - starting BP was 195/92, after was 125/75)
History of Orthostatic Hypotension
-Many antihypertensives were previously weaned off
-Was previously on Midodrine but this was also weaned off
-Then BPs became high, started Verapamil as above
-Patient saw [facility] cardio Dr. Hess outpatient
-Consider RACHELL stockings and abdominal binder
History of Bilateral Carotid Atherosclerosis
Hyperlipidemia
-Continue atorvastatin
Spinal Stenosis s/p Spinal Stimulator / Peripheral Neuropathy
History of Prostate Cancer?
Recent CT Findings (as per radiologist's report from 12/05/24)
1. Questionable proctitis. Recommend correlation with direct visualization to rule out underlying neoplasm.
2. Findings suggesting cystitis in the appropriate clinical context.
3. Small left pleural effusion.
4. Subacute to chronic partially healed lateral right 9th and 10th rib fractures.
-Will need further GI evaluation outpatient
Additional History:
(2006: Spinal cord injury, fall during hypoglycemic episode, fracture C spine, paralyzed for short time, had to learn to walk again. Vitrectomy, kidney disease, hepatitis,) and Other (Hernia,)
ED Past Surgical History: Other (hand surgery, c spine fusion, lumbar laminectomy)
DVT proph: SCDs. heparin subq
Code Status: Full Code
On 12/10/24, I called patient's Bernadette (I had also spoken to her on 12/09/24) and spoke to her extensively, and I answered all of her questions and concerns to satisfaction.
On 12/10/24, I [place] Texted patient's PCP Dr. Mccullough about patient being in the hospital, I also called patient's material handler Dr. Puma Bernal -- [phone], but he did not answer the phone.
On 12/11/24, patient's Bernadette stated to me that she will contact patient's [facility] physicians and update them on patient's hospitalization here, and if any concerns from their standpoint, patient's will let nurse and myself know.
On 12/12/24, patient's Bernadette contacted patient's [facility] physicians and told them about the management plan here for the patient, Bernadette told me the [facility] Physicians were in agreement with my plan (i.e. L-Spine MRI, Verapamil etc)
On 12/13/24, I spoke to patient's Bernadette and spoke to her extensively, and I answered all of her questions and concerns to satisfaction.
On 12/14/24, I spoke to patient's Bernadette and spoke to her extensively, and I answered all of her questions and concerns to satisfaction.
Anticipated Discharge: > 48 hours
Subjective/Interval History
-
Date of Service: December 14, 2024
Patient was seen and examined. He denied any new symptoms or complaints.
Objective Data
-
Vital Signs:
Vital Signs
Temp Pulse Resp BP Pulse Ox
98.1 F 72 20 161/68 99
12/14/24 15:09 12/14/24 15:09 12/14/24 15:09 12/14/24 15:09 12/14/24 15:09
I&O
12/13/24 12/14/24 12/15/24
06:59 06:59 06:59
Intake Total 720 / 720
Output Total 1350 / 1350 750 / 750
Balance -630 / -630 -750 / -750
[2024-12-14] MEDS: PATIENT'S OWN INSULIN PUMP 0.89 UNITS SC (16:30)
[2024-12-14 17:29] LABS: Glucose - Point of Care 169 mg/dl (70-99)
[2024-12-14 22:29] LABS: Glucose - Point of Care 238 mg/dl (70-99)
[2024-12-14 23:27] VITALS: BP 159/74
[2024-12-15] MEDS: ULTRAM 50 MG PO ×3 (01:00→19:59)
[2024-12-15 05:34] VITALS: BMI 22.9
[2024-12-15 06:00] VITALS: BMI 22.9
[2024-12-15 07:57] VITALS: BP 191/92
[2024-12-15] MEDS: HEPARIN 5000 UNITS SC ×3 (08:34→23:31)
[2024-12-15] MEDS: VITAMIN B-12 1000 MCG PO (08:35)
[2024-12-15] MEDS: THERAGRAN 1 TABLET PO (08:36)
[2024-12-15] MEDS: LIPITOR 10 MG PO (08:36)
[2024-12-15] MEDS: PAMELOR 10 MG PO (08:36)
[2024-12-15] MEDS: VITAMIN B1 100 MG PO (08:36)
[2024-12-15] MEDS: EFFEXOR XR 37.5 MG PO (08:36)
[2024-12-15] MEDS: ISOPTIN 40 MG PO ×3 (08:37→19:58)
[2024-12-15 08:47] LABS: Glucose - Point of Care 154 mg/dl (70-99)
[2024-12-15] MEDS: PATIENT'S OWN INSULIN PUMP SC ×3 (08:48→23:07)
[2024-12-15] MEDS: NOVOLOG FLEXPEN 3 UNITS SC ×3 (08:49→17:58)
[2024-12-15 11:56] LABS: Glucose - Point of Care 182 mg/dl (70-99)
[2024-12-15] MEDS: PATIENT'S OWN INSULIN PUMP 1.4 UNITS SC (12:57)
[2024-12-15 15:37] VITALS: BP 159/82
--- NOTE | 2024-12-15 16:38 | W.PN.HOSP.TC ---
Today's Communication/Plan
-
[facility] placement hopefully tomorrow
See plan
Assessment / Plan
Assessment / Plan
Physical Exam
General: No Apparent Distress and Conversant
HEENT: Normocephalic
Respiratory: Clear
Cardiac: S1/S2 and Regular Rhythm
GI: Soft, Non Tender and Normal Bowel Sounds
Musculoskeletal: No Cyanosis and No Edema
Skin: Warm and Dry
Neuro: Awake, Alert, AO x 3, No Motor Deficits, Nonfocal/grossly intact and No Sensory Deficits
Psych: Calm and Intact Judgment/Insight
Assessment/Plan
79 y/o male with past medical history of CHF, CAD, diabetes mellitus, CKD, essential hypertension, hyperlipidemia, spinal stenosis status post spinal stimulator and peripheral neuropathy presented after falling multiple times, as well as ambulatory
dysfunction. He fell on 12/08/24 hitting his head. Initial CT Head was thought to show a subdural hematoma, repeat CT head was done showing that the small subdural hematoma that was previously thought to exist was no longer there, and it was thought
to be artifact. Patient had been complaining of right hip pain, likely from the fall. He denied passing out, chest pain, abdominal pain, nausea or vomiting.

Presentation with frequent falls, gait dysfunction, right hip pain
History of Syncope from Orthostatic Hypotension
-Per patient and his , these most recent falls have NOT been associated with syncope (but in the past they have been, and in the past, extensive syncope was done)
-Discussed with cardiology -- falls appear to be neurologic in nature, but still check echocardiogram
-Per report, patient apparently had been at [facility] for balance issues and there was consideration/work-up of NPH versus Parkinson's. He has been having spasms more recently and has been having some trouble
swallowing leading to coughing.
-Patient was reportedly seen at 5 different hospitals for syncope over the few weeks to months prior to this hospitalization
-Patient's Bernadette also said that patient was at [facility] previously, was thought to have a seizure, placed on seizure medication which was stopped as later it was determined patient did NOT actually have a seizure,
but later was determined to have orthostatic hypotension, then went to [facility] for ~1 week, then returned home, followed up with his PCP Dr. Finesse Mccullough (had syncope in his office, found to have orthostasis)
-Patient's overall clinical picture seems neurologic, needs to follow-up with neurology at [facility] after blood pressure is controlled, and after acute rehab stay is completed
-I communicated via [place] Text with Dr. Brandt (school superintendent) who saw the patient and he mentioned that patient most likely has Parkinson�s Disease (had shuffling gait, increased tone in therapy,
retropulsion, and cognitive issues, blood pressure issues, bowel and bladder issues, swallowing concerns) and Supine Hypertension and Orthostasis -- patient and his would like to go to
[facility] and bed availability over there is in progress; the patient can�t manage his insulin pump on his own so nobody will take him in acute rehab with it -- on discharge will need to switch to subq
Insulin (see Diabetes INSPECTOR RAW QUARTZ note)
-Continue to monitor on telemetry
New Episodes of Urinary Incontinence
-Spoke with patient's Bernadette who said that this could be part of his suspected normal pressure hydrocephalus diagnosis versus Parkinson's versus other
-L-Spine MRI done in setting of back surgery history, patient's Bernadette spoke with patient's [facility] neurologist/physicians and they were in agreement with the L-Spine MRI
-With history of back surgeries, L-spine MRI as above -- I communicated via [place] Text with Dr. Manuel Orozco who looked at MRI images and mentioned that patient has foraminal stenosis; not a lot of central stenosis; can�t get cauda from foraminal
stenosis; doesn�t need anything done.
-Could be from possible Parkinson's Disease
Constipation
-Bowel regimen
-Continue to monitor
Recent Collarbone Fracture from Fall
Recent Rib Fractures
-Patient was supposed to see Dr. Nogueira
-Clavicle X-Ray from 12/10/24 showed as per radiologist's report: Mildly comminuted fracture of the distal left clavicle; Likely fracture of the left posterior sixth rib.
-Discussed with cardiothoracic surgery and Dr. Nogueira --> use sling, nothing else to do right now
Episode of urinary retention
-Monitor bladder scans
History of Episode of Rigidity
History of Acute Hyperkalemia
Paroxysmal Atrial Fibrillation
History of First Degree AV Block?
-Was previously on Eliquis and calcium channel ke, but not on current home med list this admission
-Eliquis would be high risk of bleeding given falls
-Patient's said that patient never had A-Fib after February 2024 hospitalization
Chronic HFpEF
-Stable
Nonobstructive Coronary Artery Disease
-No Aspirin on patient's home med list
Diabetes Mellitus, Type I
-Continue insulin pump
-Appreciate Diabetes INSPECTOR RAW QUARTZ
CKD Stage IV
-Initial Cr 2.0
-Continue to monitor creatinine -- baseline in the past was reportedly around 2.4
Essential Hypertension
Hypertensive Urgency
Orthostatic Hypotension -- suspected related to autonomic dysfunction, possible Parkinson's Disease in the setting of shuffling gait
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
-Continue Irbesartan (was on high dose previously but reduced due to orthostatic hypotension)
-Amlodipine small dose given on 12/10/24 morning, Verapamil 40 mg TID initially started 12/10/24 as Verapamil can also help with muscle spasms --> increased to 50 mg TID given high blood pressures
-Although patient's blood pressure tends to be quite high at times, he still has significant orthostatic hypotension (e.g. on 12/13/24, patient was seen by PT/OT: patient got dizzy during this session - starting BP was 195/92, after
was 125/75)
-Will need to allow some permissive hypertension given significant orthostatic hypotension
History of Orthostatic Hypotension
-Many antihypertensives were previously weaned off
-Was previously on Midodrine but this was also weaned off
-Then BPs became high, started Verapamil as above
-Patient saw [facility] cardio Dr. Hess outpatient
-Consider RACHELL stockings and abdominal binder
History of Bilateral Carotid Atherosclerosis
Hyperlipidemia
-Continue atorvastatin
Spinal Stenosis s/p Spinal Stimulator / Peripheral Neuropathy
History of Prostate Cancer?
Recent CT Findings (as per radiologist's report from 12/05/24)
1. Questionable proctitis. Recommend correlation with direct visualization to rule out underlying neoplasm.
2. Findings suggesting cystitis in the appropriate clinical context.
3. Small left pleural effusion.
4. Subacute to chronic partially healed lateral right 9th and 10th rib fractures.
-Will need further GI evaluation outpatient
Additional History:
(2006: Spinal cord injury, fall during hypoglycemic episode, fracture C spine, paralyzed for short time, had to learn to walk again. Vitrectomy, kidney disease, hepatitis,) and Other (Hernia,)
ED Past Surgical History: Other (hand surgery, c spine fusion, lumbar laminectomy)
DVT proph: SCDs. heparin subq
Code Status: Full Code
On 12/10/24, I called patient's Bernadette (I had also spoken to her on 12/09/24) and spoke to her extensively, and I answered all of her questions and concerns to satisfaction.
On 12/10/24, I [place] Texted patient's PCP Dr. Mccullough about patient being in the hospital, I also called patient's coo & co founder Dr. Puma Bernal -- [phone], but he did not answer the phone.
On 12/11/24, patient's Bernadette stated to me that she will contact patient's [facility] physicians and update them on patient's hospitalization here, and if any concerns from their standpoint, patient's will let nurse and myself know.
On 12/12/24, patient's Bernadette contacted patient's [facility] physicians and told them about the management plan here for the patient, Bernadette told me the [facility] Physicians were in agreement with my plan (i.e. L-Spine MRI, Verapamil etc)
On 12/13/24, I spoke to patient's Bernadette and spoke to her extensively, and I answered all of her questions and concerns to satisfaction.
On 12/14/24, I spoke to patient's Bernadette and spoke to her extensively, and I answered all of her questions and concerns to satisfaction.
Anticipated Discharge: Within 24 hours
Subjective/Interval History
-
Date of Service: December 15, 2024
Patient was seen and examined. He denied any new significant symptoms or complaints.
Objective Data
-
Vital Signs:
Vital Signs
Temp Pulse Resp BP Pulse Ox
97.5 F 84 18 159/82 100
12/15/24 15:37 12/15/24 15:37 12/15/24 15:37 12/15/24 15:37 12/15/24 15:37
I&O
12/14/24 12/15/24 12/16/24
06:59 06:59 06:59
Intake Total 1560 / 1560
Output Total 750 / 750 475 / 475
Balance -750 / -750 1085 / 1085
[2024-12-15 17:21] LABS: Glucose - Point of Care 242 mg/dl (70-99)
[2024-12-15] MEDS: PATIENT'S OWN INSULIN PUMP 3 UNITS SC (17:58)
[2024-12-15] MEDS: AVAPRO 150 MG PO (17:59)
[2024-12-15] MEDS: TYLENOL 1000 MG PO (19:58)
[2024-12-15 22:05] LABS: Glucose - Point of Care 154 mg/dl (70-99)
[2024-12-15 23:00] VITALS: BP 169/98
--- NOTE | 2024-12-15 23:26 | PTCARENOTE ---
ax2-2 forgetful - confused at times pulled out his own insulin pump- was unable to tell me how much his bolus was- manages pump- is not here all the time-- insulin pump remains out as pt pulled out-
[2024-12-16] VITALS (7 sets, daily range): BP systolic 102–172; BP diastolic 51–92; PULSE 98–99; O2SAT 99; BMI 22.4
[2024-12-16] MEDS: ULTRAM 50 MG PO ×2 (00:06→04:22)
[2024-12-16] MEDS: TYLENOL 1000 MG PO (04:22)
--- NOTE | 2024-12-16 07:22 | PN.DE.MGMTRT ---
Addendum entered and electronically signed by KYUNG Gorman 12/16/24 14:06:
Repeat POC glucose 1 hr after SQ insulin is 487, 479 V. Nurse reports that has been hallucinating and that pt's insulin pump has been off since 23:39.
there was no followup to pt's pump coming off at [place] and it appears that pt has been without insulin >8 hrs.
Will check stat BMP. Concerned that pt might be in DKA, however, Pt denies N/V or abd pain, and was able to tolerate toast and peanut butter prior to PT session.
at bedside, states she was told that pt was disoriented last night and that he pulled his gown and all clothing off during the night. She is worried that his condition is deteriorating.
Contacted Pt's primary Endo Dr. Bernal via 's phone and discussed pt's current condition. He was in agreement with STAT BMP and to conservatively treat high blood sugars given pt's h/o severe hypoglycemia. He is aware that pt will not be bale to
go to rehab with the insulin pump and was agreeable with Lantus 15 units for basal dose.
Will closely monitor glucose. Plan to repeat POC glucose in 1 hr while we wait for his BMP results.
Discussed with Nurse at bedside.
Original Note:
Insulin Management
- -
12/16/2024: Diabetes Management Follow up
79 year old male admitted s/p fall at home. He lives at home with his ; she reports he has been falling frequently. He has a known left clavicle fracture. He also notes some ongoing hip pain since before the fall. PMH: HTN, IDDM, Spinal cord
injury, fall during hypoglycemic episode, fracture C spine, paralyzed for short time, kidney disease and hepatitis, currently being worked up for Parkinson's disease versus Normal Pressure Hydrocephalus.. He is followed by environmental sampler at [facility]
[address]. Bernal. Last A1C was 6.4% in 02/2024. Current A1C 6.9%, cr 1.7, eGFR 40.50.
Uses Tandem T-Slim insulin pump with Humalog insulin, soft steel and DexCom G7 CGM.
states patient is very forgetful and often forgets to bolus. After discussion with patient and , it was decided to leave pump in place to deliver basal insulin and administer NovoLog AC.
12/[address] Bernal's office, Patient's environmental sampler. Pump settings were changed in September but pt and never followed through to make changes in the pump. Pump settings were revised and modified based on discussion with Endo on 12/12.
Pt awake, alert, oriented, sitting up in chair, offers no complaints. not at bedside, called her this morning but she didn't answer.
12/13 Lengthy discussion with regarding taking off insulin pump once pt is in rehab because she will not be able to assist him with managing the pump.
Due to current forgetfulness only the basal rates were running, patient is not administering bolus while here.
Premeal Glucose yesterday was 154 to 242 while on his insulin pump
Patient was rejected admission to acute rehab due to inability to independently manage his insulin pump.
Nurse reports that pt pulled his insulin pump off over night. pump is currently at bedside table. Pt does not remember what happened
Glucose 459 POC and STAT venous glucose is 506 now. Will give 10 units NovoLog NOW and Lantus 15 units NOW.
Will leave insulin pump once since plan was to switch to SubQ upon discharge to Acute rehab
Will start Lantus 15 units in AM and NovoLog 4 units AC, cont same regimen upon discharge to rehab
Discussed with Nurse. Will cont to follow and attempt to reach pt's again
Diabetes History
- -
Type of Diabetes: 1
Pre-Admission Diabetes Regimen
Lab Results
Hemoglobin A1c 6.9 % (4.0-5.9) H 12/09/24 08:15
Insulin Pump Settings
IP Diabetes Regimen
12/15/24 12/15/24 12/15/24
08:43 11:55 17:19
POC Glucose 154 H 182 H 242 H
12/15/24
22:02
POC Glucose 154 H
Patient Education
[2024-12-16 08:20] LABS: Glucose - Point of Care 459 mg/dl (70-99)
[2024-12-16 09:15] LABS: Glucose 506 mg/dl (70-99)
[2024-12-16] MEDS: PATIENT'S OWN INSULIN PUMP SC (09:18)
[2024-12-16] MEDS: ISOPTIN 40 MG PO ×2 (09:23→22:29)
[2024-12-16] MEDS: VITAMIN B-12 1000 MCG PO (09:23)
[2024-12-16] MEDS: LANTUS 0.15 UNITS SC (09:23)
[2024-12-16] MEDS: PAMELOR 10 MG PO (09:24)
[2024-12-16] MEDS: EFFEXOR XR 37.5 MG PO (09:24)
[2024-12-16] MEDS: VITAMIN B1 100 MG PO (09:24)
[2024-12-16] MEDS: HEPARIN 5000 UNITS SC ×3 (09:24→23:40)
[2024-12-16] MEDS: LIPITOR 10 MG PO (09:24)
[2024-12-16] MEDS: THERAGRAN 1 TABLET PO (09:24)
[2024-12-16] MEDS: NOVOLOG FLEXPEN 4 UNITS SC ×3 (09:33→18:12)
[2024-12-16] MEDS: NOVOLOG FLEXPEN 10 UNITS SC (09:33)
--- NOTE | 2024-12-16 09:56 | CM ---
Addendum entered by Rhonda Ceja 12/16/24 14:24:
Per Attending, Patient is acidotic; not stable for discharge today
[facility] notified; and will hold bed for tomorrow
Addendum entered by Rhonda Ceja 12/16/24 12:12:
Bed available today @ [facility]
Report # [phone]

Original Note:
Plan: Discharge to [facility] pending bed availability
--- NOTE | 2024-12-16 09:58 | W.PN.HOSP.TC ---
Addendum entered and electronically signed by Talib Solano DO 12/16/24 16:27:
Unfortunately patient developed diabetic ketoacidosis with serum bicarbonate of 15. Anion gap of 19. This likely occurred because he ripped off his insulin pump during the night.
Therefore, transfer to [facility] was canceled for today.
IV fluids initiated.
Appreciate diabetes PA assistance. Insulin to be adjusted. Glucoses are starting to improve.
Monitor BMP closely.
Monitor overnight.
Updated patient's on the phone.
Original Note:
Today's Communication/Plan
-
Discharge planning
Assessment / Plan
Assessment / Plan
Gen-awake, alert, NAD
HEENT-NC, AT, anicteric, clear oral mm
Neck-supple
CV-reg, no M, +S1/S2
Lungs-clear B/L
Abd-soft, NT, ND
Ext-no edema
Musculoskeletal-no cyanosis, clubbing
Skin-warm and dry
Neuro-grossly non-focal
Psych-calm, cooperative
Delirium -hospital-acquired. Suspect underlying cognitive impairment. Will need outpatient cognitive assessment. Could have underlying dementia possibly related to undiagnosed Parkinson's disease.
According to nursing, he was confused last night, ripped off his insulin pump.
Presentation with frequent falls, gait dysfunction, right hip pain
History of Syncope from Orthostatic Hypotension
-Per patient and his , these most recent falls have NOT been associated with syncope (but in the past they have been, and in the past, extensive syncope was done)
-Discussed with cardiology -- falls appear to be neurologic in nature, but still check echocardiogram
-Per report, patient apparently had been at [facility] for balance issues and there was consideration/work-up of NPH versus Parkinson's. He has been having spasms more recently and has been having some trouble
swallowing leading to coughing.
-Patient was reportedly seen at 5 different hospitals for syncope over the few weeks to months prior to this hospitalization
-Patient's Bernadette also said that patient was at [facility] previously, was thought to have a seizure, placed on seizure medication which was stopped as later it was determined patient did NOT actually have a seizure,
but later was determined to have orthostatic hypotension, then went to [facility] for ~1 week, then returned home, followed up with his PCP Dr. Finesse Mccullough (had syncope in his office, found to have orthostasis)
-Patient's overall clinical picture seems neurologic, needs to follow-up with neurology at [facility] after blood pressure is controlled, and after acute rehab stay is completed
-I communicated via [place] Text with Dr. Brandt (surgical supplies sterilizer) who saw the patient and he mentioned that patient most likely has Parkinson�s Disease (had shuffling gait, increased tone in therapy,
retropulsion, and cognitive issues, blood pressure issues, bowel and bladder issues, swallowing concerns) and Supine Hypertension and Orthostasis -- patient and his would like to go to
[facility]
New Episodes of Urinary Incontinence
-Spoke with patient's Bernadette who said that this could be part of his suspected normal pressure hydrocephalus diagnosis versus Parkinson's versus other
-L-Spine MRI done in setting of back surgery history, patient's Bernadette spoke with patient's [facility] neurologist/physicians and they were in agreement with the L-Spine MRI
-With history of back surgeries, L-spine MRI as above -- I communicated via [place] Text with Dr. Manuel Orozco who looked at MRI images and mentioned that patient has foraminal stenosis; not a lot of central stenosis; can�t get cauda from foraminal
stenosis; doesn�t need anything done.
-Could be from possible Parkinson's Disease
Constipation
-Bowel regimen
-Continue to monitor
Mild comminuted fracture, distal left clavicle -unknown acuity.
Recent Rib Fractures
-Patient was supposed to see Dr. Nogueira
-Clavicle X-Ray from 12/10/24 showed as per radiologist's report: Mildly comminuted fracture of the distal left clavicle; Likely fracture of the left posterior sixth rib.
-Discussed with cardiothoracic surgery and Dr. Nogueira --> use sling, nothing else to do right now
Episode of urinary retention
-Monitor bladder scans
History of Episode of Rigidity
History of Acute Hyperkalemia
Paroxysmal Atrial Fibrillation
History of First Degree AV Block?
-Was previously on Eliquis and calcium channel ke, but not on current home med list this admission
-Eliquis would be high risk of bleeding given falls
-Patient's said that patient never had A-Fib after February 2024 hospitalization
Chronic HFpEF
-Stable
Nonobstructive CAD
-No Aspirin on patient's home med list
Diabetes Mellitus, Type I
Transitioned to subcutaneous insulin this a.m. as patient ripped off his pump overnight, hyperglycemia noted this morning. Not a good long-term pump candidate given episodes of confusion, possible underlying cognitive impairment.
In addition, [facility] cannot handle insulin pump.
CKD Stage 3b
Renal function stable and at baseline.
Essential Hypertension
Hypertensive Urgency
Orthostatic Hypotension -- suspected related to autonomic dysfunction, possible Parkinson's Disease in the setting of shuffling gait
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
-Continue Irbesartan (was on high dose previously but reduced due to orthostatic hypotension)
-Amlodipine small dose given on 12/10/24 morning, Verapamil 40 mg TID initially started 12/10/24 as Verapamil can also help with muscle spasms --> increased to 50 mg TID given high blood pressures
-Although patient's blood pressure tends to be quite high at times, he still has significant orthostatic hypotension (e.g. on 12/13/24, patient was seen by PT/OT: patient got dizzy during this session - starting BP was 195/92, after
was 125/75)
-Will need to allow some permissive hypertension given significant orthostatic hypotension
History of Orthostatic Hypotension
-Many antihypertensives were previously weaned off
-Was previously on Midodrine but this was also weaned off
-Then BPs became high, started Verapamil as above
-Patient saw [facility] cardio Dr. Hess outpatient
- Compression stockings ordered.
History of Bilateral Carotid Atherosclerosis
Hyperlipidemia
-Continue atorvastatin
Spinal Stenosis s/p Spinal Stimulator / Peripheral Neuropathy
History of Prostate Cancer?
Recent CT Findings (as per radiologist's report from 12/05/24)
1. Questionable proctitis. Recommend correlation with direct visualization to rule out underlying neoplasm.
2. Findings suggesting cystitis in the appropriate clinical context.
3. Small left pleural effusion.
4. Subacute to chronic partially healed lateral right 9th and 10th rib fractures.
-Will need further GI evaluation outpatient
Additional History:
(2006: Spinal cord injury, fall during hypoglycemic episode, fracture C spine, paralyzed for short time, had to learn to walk again. Vitrectomy, kidney disease, hepatitis,) and Other (Hernia,)
ED Past Surgical History: Other (hand surgery, c spine fusion, lumbar laminectomy)
DVT proph: SCDs. heparin subq
Code Status: Full Code
Dispo -medically stable for discharge to [facility] [place] [facility] pending bed availability, insurance authorization. Case management aware.
Anticipated Discharge: Today
Subjective/Interval History
-
Date of Service: December 16, 2024
Patient seen and examined. No complaints.
Objective Data
-
Labs:
Laboratory Results
12/16/24
08:27
Glucose 506 H*
Vital Signs:
Vital Signs
Temp Pulse Resp BP Pulse Ox
97.5 F 95 16 158/92 100
12/16/24 07:46 12/16/24 07:46 12/16/24 07:46 12/16/24 09:23 12/16/24 07:46
I&O
12/15/24 12/16/24 12/17/24
06:59 06:59 06:59
Intake Total 1560 / 1560 480 / 480
Output Total 475 / 475 700 / 700 500 / 500
Balance 1085 / 1085 -220 / -220 -500 / -500
Review of Systems
-
History Source: Patient
All other systems: Reviewed and negative
[2024-12-16 10:16] LABS: Glucose - Point of Care 487 mg/dl (70-99)
[2024-12-16 11:06] LABS: Glucose 479 mg/dl (70-99)
[2024-12-16] MEDS: NOVOLOG FLEXPEN-MODERATE RESISTANCE 11 UNITS SC (12:09)
--- NOTE | 2024-12-16 12:21 | PTCARENOTE ---
Addendum entered by Samantha Garcia RN 12/16/24 14:12:
sugars monitored x1hr. last glucose resulting 197, mentation improved. worklist noted, prn stool softener given. see MAR
Original Note:
Nightshift RN reported this morning pt removed insulin pump overnight. this RN had sugar taken with morning vitals, >400. Stat glucose ordered. stat glucose >500. orders obtained from clinical staff educator and MD made aware. rechecked sugar >400 repeat
stat glucose obtained. results >400. MD and clinical staff educator notified of increased agitation and visual hallucinations.
outreach educator at bedside and RN obtaining orders. BMP stat ordered and sliding scale order given. See MAR.
[2024-12-16 12:54] LABS: Blood Urea Nitrogen 38 mg/dl (9-20); Calcium 9.8 mg/dl (8.4-10.2); Chloride 100 mmol/L (98-107); Estimated Creatinine Clearance 32 ml/min; Potassium 5.0 mmol/L (3.5-5.1); Sodium 134 mmol/L (135-145); eGFR 35.44
[2024-12-16 13:10] LABS: Glucose - Point of Care 302 mg/dl (70-99)
[2024-12-16 13:56] LABS: Carbon Dioxide 15 mmol/L (22-30)
[2024-12-16] MEDS: SENOKOT-S 1 TABLET PO ×2 (14:01→19:56)
[2024-12-16 14:09] LABS: Glucose - Point of Care 197 mg/dl (70-99)
[2024-12-16] MEDS: NSS 1000 IV (15:50)
[2024-12-16] MEDS: MIRALAX 17 GRAMS PO (15:51)
[2024-12-16] MEDS: ISOPTIN PO (16:03)
[2024-12-16 17:17] LABS: Glucose - Point of Care 217 mg/dl (70-99)
[2024-12-16 17:38] LABS: Blood Urea Nitrogen 44 mg/dl (9-20); Calcium 9.5 mg/dl (8.4-10.2); Carbon Dioxide 26 mmol/L (22-30); Chloride 100 mmol/L (98-107); Estimated Creatinine Clearance 30 ml/min; Glucose 214 mg/dl (70-99); Potassium 5.1 mmol/L (3.5-5.1); Sodium 132 mmol/L (135-145); eGFR 33.32
[2024-12-16] MEDS: AVAPRO PO (17:52)
[2024-12-16] MEDS: NOVOLOG FLEXPEN-MODERATE RESISTANCE 3 UNITS SC (18:13)
[2024-12-16 18:16] LABS: Urine Character Clear (Clear)
[2024-12-16 18:38] LABS: Urine Red Blood Cell 0-2 /HPF (0-2); Urine White Cell 0-2 /HPF (0-5)
[2024-12-16 21:47] LABS: Glucose - Point of Care 189 mg/dl (70-99)
[2024-12-17] MEDS: ULTRAM 50 MG PO (00:33)
[2024-12-17] MEDS: TYLENOL 1000 MG PO (02:47)
[2024-12-17] MEDS: NSS 1000 IV (03:25)
[2024-12-17] MEDS: ULTRAM 25 MG PO (04:11)
[2024-12-17 04:22] LABS: Glucose - Point of Care 171 mg/dl (70-99)
[2024-12-17 05:17] VITALS: BMI 22.4
[2024-12-17 06:38] LABS: Hematocrit 33.7 % (39.0-52.0); Hemoglobin 11.8 g/dL (13.0-18.0); Mean Corp Hgb Conc. 35.0 g/dL (33.0-37.0); Mean Corpuscular Volume 92.6 fL (80.0-94.0); Nucleated Red Blood Cells % 0 % (-); Platelet Count 309 10^3/uL (130-400); Red Cell Dist. Width 13.1 % (11.5-14.5)
[2024-12-17 07:25] VITALS: BP 196/92
[2024-12-17 07:26] LABS: Glucose - Point of Care 220 mg/dl (70-99)
[2024-12-17] MEDS: LANTUS 0.15 UNITS SC (08:19)
[2024-12-17] MEDS: NOVOLOG FLEXPEN 4 UNITS SC ×2 (08:20→13:05)
[2024-12-17] MEDS: NOVOLOG FLEXPEN-MODERATE RESISTANCE 3 UNITS SC (08:20)
[2024-12-17] MEDS: MIRALAX 17 GRAMS PO (08:21)
[2024-12-17] MEDS: THERAGRAN 1 TABLET PO (08:21)
[2024-12-17] MEDS: PAMELOR 10 MG PO (08:21)
[2024-12-17] MEDS: VITAMIN B-12 1000 MCG PO (08:21)
[2024-12-17] MEDS: VITAMIN B1 100 MG PO (08:22)
[2024-12-17] MEDS: SENOKOT-S 1 TABLET PO (08:22)
[2024-12-17] MEDS: ISOPTIN 40 MG PO ×2 (08:22→16:36)
[2024-12-17] MEDS: HEPARIN 5000 UNITS SC ×2 (08:22→16:36)
[2024-12-17] MEDS: EFFEXOR XR 37.5 MG PO (08:22)
[2024-12-17] MEDS: LIPITOR 10 MG PO (08:22)
--- NOTE | 2024-12-17 09:04 | W.PN.HOSP.TC ---
Today's Communication/Plan
-
Discharge
Assessment / Plan
Assessment / Plan
Gen-awake, alert, NAD
HEENT-NC, AT, anicteric, clear oral mm
Neck-supple
CV-reg, no M, +S1/S2
Lungs-clear B/L
Abd-soft, NT, ND
Ext-no edema
Musculoskeletal-no cyanosis, clubbing
Skin-warm and dry
Neuro-grossly non-focal
Psych-calm, cooperative
DM1 with mild DKA -DKA related to patient ripping off his own insulin pump. Transition to subcutaneous insulin morning of 12/16. DKA resolved. Glucoses improving, 171 this morning. Can discontinue further IV fluids.
BMP pending for today. Not good long-term insulin pump candidate given advanced age and suspected Parkinson's disease.
Delirium -hospital-acquired. Suspect underlying cognitive impairment. Will need outpatient cognitive assessment. Could have underlying dementia possibly related to undiagnosed Parkinson's disease.
Delirium resolved.
Presentation with frequent falls, gait dysfunction, right hip pain
History of Syncope from Orthostatic Hypotension
-Per patient and his , these most recent falls have NOT been associated with syncope (but in the past they have been, and in the past, extensive syncope was done)
-Discussed with cardiology -- falls appear to be neurologic in nature, but still check echocardiogram
-Per report, patient apparently had been at [facility] for balance issues and there was consideration/work-up of NPH versus Parkinson's. He has been having spasms more recently and has been having some trouble
swallowing leading to coughing.
-Patient was reportedly seen at 5 different hospitals for syncope over the few weeks to months prior to this hospitalization
-Patient's Bernadette also said that patient was at [facility] previously, was thought to have a seizure, placed on seizure medication which was stopped as later it was determined patient did NOT actually have a seizure,
but later was determined to have orthostatic hypotension, then went to [facility] for ~1 week, then returned home, followed up with his PCP Dr. Finesse Mccullough (had syncope in his office, found to have orthostasis)
-Patient's overall clinical picture seems neurologic, needs to follow-up with neurology at [facility] after blood pressure is controlled, and after acute rehab stay is completed
-I communicated via [place] Text with Dr. Brandt (director of land) who saw the patient and he mentioned that patient most likely has Parkinson�s Disease (had shuffling gait, increased tone in therapy,
retropulsion, and cognitive issues, blood pressure issues, bowel and bladder issues, swallowing concerns) and Supine Hypertension and Orthostasis -- patient and his would like to go to
[facility]
New Episodes of Urinary Incontinence
-Spoke with patient's Bernadette who said that this could be part of his suspected normal pressure hydrocephalus diagnosis versus Parkinson's versus other
-L-Spine MRI done in setting of back surgery history, patient's Bernadette spoke with patient's [facility] neurologist/physicians and they were in agreement with the L-Spine MRI
-With history of back surgeries, L-spine MRI as above -- I communicated via [place] Text with Dr. Manuel Orozco who looked at MRI images and mentioned that patient has foraminal stenosis; not a lot of central stenosis; can�t get cauda from foraminal
stenosis; doesn�t need anything done.
-Could be from possible Parkinson's Disease
Constipation
-Bowel regimen
-Continue to monitor
Mild comminuted fracture, distal left clavicle -unknown acuity.
Recent Rib Fractures
-Patient was supposed to see Dr. Nogueira
-Clavicle X-Ray from 12/10/24 showed as per radiologist's report: Mildly comminuted fracture of the distal left clavicle; Likely fracture of the left posterior sixth rib.
-Discussed with cardiothoracic surgery and Dr. Nogueira --> use sling, nothing else to do right now
Episode of urinary retention
-Monitor bladder scans
History of Episode of Rigidity
History of Acute Hyperkalemia
Paroxysmal Atrial Fibrillation
History of First Degree AV Block?
-Was previously on Eliquis and calcium channel ke, but not on current home med list this admission
-Eliquis would be high risk of bleeding given falls
-Patient's said that patient never had A-Fib after February 2024 hospitalization
Chronic HFpEF
-Stable
Nonobstructive CAD
-No Aspirin on patient's home med list
CKD Stage 3b
Renal function stable and at baseline.
Essential Hypertension
Hypertensive Urgency
Orthostatic Hypotension -- suspected related to autonomic dysfunction, possible Parkinson's Disease in the setting of shuffling gait. Compression stockings ordered.
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
-Continue Irbesartan (was on high dose previously but reduced due to orthostatic hypotension)
-Amlodipine small dose given on 12/10/24 morning, Verapamil 40 mg TID initially started 12/10/24 as Verapamil can also help with muscle spasms
-Although patient's blood pressure tends to be quite high at times, he still has significant orthostatic hypotension (e.g. on 12/13/24, patient was seen by PT/OT: patient got dizzy during this session - starting BP was 195/92, after
was 125/75)
-Will need to allow some permissive hypertension given significant orthostatic hypotension
History of Orthostatic Hypotension
-Many antihypertensives were previously weaned off
-Was previously on Midodrine but this was also weaned off
-Then BPs became high, started Verapamil as above
-Patient saw [facility] cardio Dr. Hess outpatient
- Compression stockings ordered.
History of Bilateral Carotid Atherosclerosis
Hyperlipidemia
-Continue atorvastatin
Spinal Stenosis s/p Spinal Stimulator / Peripheral Neuropathy
History of Prostate Cancer?
Recent CT Findings (as per radiologist's report from 12/05/24)
1. Questionable proctitis. Recommend correlation with direct visualization to rule out underlying neoplasm.
2. Findings suggesting cystitis in the appropriate clinical context.
3. Small left pleural effusion.
4. Subacute to chronic partially healed lateral right 9th and 10th rib fractures.
-Will need further GI evaluation outpatient
Additional History:
(2006: Spinal cord injury, fall during hypoglycemic episode, fracture C spine, paralyzed for short time, had to learn to walk again. Vitrectomy, kidney disease, hepatitis,) and Other (Hernia,)
ED Past Surgical History: Other (hand surgery, c spine fusion, lumbar laminectomy)
DVT proph: SCDs. heparin subq
Code Status: Full Code
Dispo -medically stable for discharge to [place] [facility] today.
35 min spent in discharge process.
Anticipated Discharge: Today
Subjective/Interval History
-
Date of Service: December 17, 2024
Patient seen and examined. No complaints.
Objective Data
-
Labs:
Laboratory Results
12/17/24 12/17/24
06:15 08:18
WBC 9.3
Hgb 11.8 L
Hct 33.7 L
Plt Count 309
Sodium Cancelled Pending
Potassium Cancelled Pending
Chloride Cancelled Pending
Carbon Dioxide Cancelled Pending
BUN Cancelled Pending
Creatinine Cancelled Pending
Glucose Cancelled Pending
Calcium Cancelled Pending
Vital Signs:
Vital Signs
Temp Pulse Resp BP Pulse Ox
98.6 F 84 18 196/92 100
12/17/24 07:25 12/17/24 07:25 12/17/24 07:25 12/17/24 07:25 12/17/24 07:25
I&O
12/16/24 12/17/24 12/18/24
06:59 06:59 06:59
Intake Total 480 / 480 840 / 840
Output Total 700 / 700 1500 / 1500
Balance -220 / -220 -660 / -660
Review of Systems
-
History Source: Patient
All other systems: Reviewed and negative
[2024-12-17 09:22] LABS: Blood Urea Nitrogen 38 mg/dl (9-20); Calcium 9.6 mg/dl (8.4-10.2); Carbon Dioxide 23 mmol/L (22-30); Chloride 103 mmol/L (98-107); Estimated Creatinine Clearance 37 ml/min; Glucose 207 mg/dl (70-99); Magnesium 2.1 mg/dl (1.6-2.3); Potassium 4.3 mmol/L (3.5-5.1); Sodium 132 mmol/L (135-145); eGFR 43.56
--- NOTE | 2024-12-17 10:59 | W.DS.TRANS ---
DC Summary - [employer]
-
Discharge Instructions:
Discharge Diagnosis/Procedures Ambulatory dysfunction, orthostatic hypotension
Diet Low Cholesterol,Low Fat,Diabetic, Carb
Controlled,2 Gram Sodium
Activity With assistance
Driving Restrictions No driving
Bathing Restrictions None
Instructions:
Stand-Alone Forms:
Changes to Home Medications: No
Discharge Medications:
DC Medications w/original date entered in [facility]
atorvastatin 10 mg tablet 10 mg PO DAILY High cholesterol 01/18/18
albuterol sulfate 90 mcg/actuation aerosol inhaler 2 puff inhalation R Q4HPRN PRN SOB 06/08/21
tramadol 50 mg tablet 50 mg PO TIDPRN PRN severe pain 03/06/23
cyanocobalamin (vitamin B-12) 1,000 mcg tablet 1,000 mcg PO DAILY 07/06/24
nortriptyline 10 mg capsule 10 mg PO DAILY Mental Health/Anxiety 07/06/24
thiamine HCl (vitamin B1) 100 mg tablet 100 mg PO DAILY 07/06/24
venlafaxine 37.5 mg capsule,extended release 24 hr 37.5 mg PO DAILY Mental Health/Anxiety 07/06/24
acetaminophen 500 mg capsule 1,000 mg PO QID PRN pain 12/05/24
Insulin Glargine Lantus [Lantus] 15 units As Directed mls/hr SC DAILY 12/17/24
insulin aspart U-100 100 unit/mL (3 mL) subcutaneous pen 4 unit (0.04 mL) SC AC #0 mL 12/17/24
multivitamin with folic acid 400 mcg tablet (Tab-A-Merrill) 1 tab PO DAILY #0 tabs 12/17/24
polyethylene glycol 3350 17 gram oral powder packet 17 g PO DAILY #0 ea 12/17/24
sennosides 8.6 mg-docusate sodium 50 mg tablet (Senna Plus) 1 tab PO BID #0 tabs 12/17/24
verapamil 40 mg tablet 40 mg PO TID #0 tabs 12/17/24
Home Medication Changes
Pending Results: No
[2024-12-17 12:14] LABS: Glucose - Point of Care 122 mg/dl (70-99)
[2024-12-17] MEDS: NOVOLOG FLEXPEN-MODERATE RESISTANCE SC (12:17)
[2024-12-17] MEDS: FLUZONE HIGH-DOSE 2025-26 0.5 ML IM (13:05)
--- NOTE | 2024-12-17 14:04 | PN.DE.MGMTRT ---
Insulin Management
- -
12/17/2024: Diabetes Management Follow up
79 year old male admitted s/p fall at home. He lives at home with his ; she reports he has been falling frequently. He has a known left clavicle fracture. He also notes some ongoing hip pain since before the fall. PMH: HTN, IDDM, Spinal cord
injury, fall during hypoglycemic episode, fracture C spine, paralyzed for short time, kidney disease and hepatitis, currently being worked up for Parkinson's disease versus Normal Pressure Hydrocephalus. He is followed by ranger aide at [facility]
[place] Dr. Bernal. Last A1C was 6.4% in 02/2024. Current A1C 6.9%, cr 1.7, eGFR 40.50.
Uses Tandem T-Slim insulin pump with Humalog insulin, soft steel and DexCom G7 CGM.
states patient is very forgetful and often forgets to bolus. After discussion with patient and , it was decided to leave pump in place to deliver basal insulin and administer NovoLog AC.
12/[address] Bernal's office, Patient's ranger aide. Pump settings were changed in September but pt and never followed through to make changes in the pump. Pump settings were revised and modified based on discussion with Endo on 12/12.
12/17 Pt awake, alert, oriented, sitting up in chair, offers no complaints. not at bedside.
Patient unable to use insulin pump in rehab. Pump stopped 12/16. Lantus 15 units AM started, glucose range 189 to 220
Will increase AM Lantus to 17 units and continue NovoLog 4 units AC. Continue same regimen upon discharge to rehab
Discussed with Nurse. Will cont to follow
Diabetes History
- -
Type of Diabetes: 1
Pre-Admission Diabetes Regimen
12/16/24 12/16/24 12/17/24
17:18 22:00 06:15
Creatinine 2.0 H Cancelled Cancelled
12/17/24
08:18
Creatinine 1.6 H
Lab Results
Hemoglobin A1c 6.9 % (4.0-5.9) H 12/09/24 08:15
Insulin Pump Settings
IP Diabetes Regimen
12/16/24 12/16/24 12/16/24
14:08 17:16 17:18
Glucose 214 H
POC Glucose 197 H 217 H
12/16/24 12/16/24 12/17/24
21:45 22:00 04:20
Glucose Cancelled
POC Glucose 189 H 171 H
12/17/24 12/17/24 12/17/24
06:15 07:25 08:18
Glucose Cancelled 207 H
POC Glucose 220 H
12/17/24
12:13
Glucose
POC Glucose 122 H
Meal type: Breakfast
Meal type: Lunch
Amount consumed: 50%
Amount consumed: 90%
Patient Education
--- NOTE | 2024-12-17 14:46 | CM ---
CM reviewed chart, patient seen bedside with , for d/c today to [facility].
IMM verbally reviewed, provided with copy, placed in chart.
CM will continue to follow for all d/c needs.
Plan; d/c to [facility]
Report # [phone]
[2024-12-17 15:30] VITALS: BP 175/80
[2024-12-17 16:10] LABS: Glucose - Point of Care 150 mg/dl (70-99)
== END 2024-12-17 17:24 | DRG 57 ==
LOC: 2 NORTH 18:01
PROVIDERS: Student in an Organized Health Care Education/Training Program; ADMITTING PHYSICIAN Hospitalist; ATTENDING PHYSICIAN Hospitalist; CONSULT PHYSICIAN Internal Medicine Cardiovascular Disease; CONSULT PHYSICIAN Physical Medicine & Rehabilitation; EMERGENCY PHYSICIAN Student in an Organized Health Care Education/Training Program; FAMILY PHYSICIAN Family Medicine
PROC: 3E02340 Introduction of Influenza Vaccine into Muscle, Percutaneous Approach (ICD-10-PCS; 2024-12-17)
DX: G90.3 Multi-system degeneration of the autonomic nervous system (principal); I50.32 Chronic diastolic (congestive) heart failure; I13.0 Hypertensive heart and chronic kidney disease with heart failure and stage 1 through stage 4 chronic kidney disease, or unspecified chronic kidney disease; N18.4 Chronic kidney disease, stage 4 (severe); Z87.891 Personal history of nicotine dependence; E10.42 Type 1 diabetes mellitus with diabetic polyneuropathy; Z79.4 Long term (current) use of insulin; I48.0 Paroxysmal atrial fibrillation; Z79.01 Long term (current) use of anticoagulants; D53.9 Nutritional anemia, unspecified; E10.22 Type 1 diabetes mellitus with diabetic chronic kidney disease; E10.319 Type 1 diabetes mellitus with unspecified diabetic retinopathy without macular edema; E10.649 Type 1 diabetes mellitus with hypoglycemia without coma; G89.29 Other chronic pain; I16.0 Hypertensive urgency; Z79.899 Other long term (current) drug therapy; Z85.46 Personal history of malignant neoplasm of prostate; Z23 Encounter for immunization
CPT/HCPCS: 70450; 72158; 72170; 73000; 73502; 80048; 80053; 81003; 81015; 82550; 82607; 82947; 82962; 83036; 83690; 83735; 84100; 85025; 85027; 86803; 90662; 93005; 93306; 97110; 97116; 97163; 97167; 97530; 97535; 99285; A9575; G0008

== ENCOUNTER 2024-12-19 00:40 | Emergency (ER) | payer MEDICARE, SELFPAY ==
[2024-12-19 00:45] VITALS: BP 122/72
[2024-12-19 00:57] VITALS: BMI 22.4
[2024-12-19 01:00] VITALS: BP 114/68
[2024-12-19] MEDS: DILAUDID 1 MG IV (01:14)
[2024-12-19 01:31] LABS: Hematocrit 34.3 % (39.0-52.0); Hemoglobin 11.8 g/dL (13.0-18.0); Mean Corp Hgb Conc. 34.4 g/dL (33.0-37.0); Mean Corpuscular Volume 94.5 fL (80.0-94.0); Nucleated Red Blood Cells % 0 % (-); Platelet Count 302 10^3/uL (130-400); Red Cell Dist. Width 13.2 % (11.5-14.5)
[2024-12-19] MEDS: VALIUM INJECTION 2 MG IV (01:45)
[2024-12-19 01:55] LABS: ALT (SGPT) 26 U/L (0-50); AST (SGOT) 23 U/L (17-59); Albumin 3.7 g/dl (3.5-5.0); Alkaline Phosphatase 171 U/L (38-126); Blood Urea Nitrogen 29 mg/dl (9-20); Calcium 9.4 mg/dl (8.4-10.2); Carbon Dioxide 19 mmol/L (22-30); Chloride 104 mmol/L (98-107); Estimated Creatinine Clearance 35 ml/min; Glucose 284 mg/dl (70-99); Potassium 4.6 mmol/L (3.5-5.1); Sodium 134 mmol/L (135-145); Total Protein 6.3 g/dl (6.3-8.2); eGFR 40.50
[2024-12-19 02:00] VITALS: BP 128/84
--- NOTE | 2024-12-19 02:38 | ED.GENMED ---
History of Present Illness
General
Chief Complaint: Fall
Source: patient
Exam Limitations: none
Time Seen by Provider: 12/19/24 00:53
Nursing documentation reviewed up to this point in time: agreed with
History of Present Illness
History of Present Illness:
pt is a 79 y/o M
chronic back pain, spine stimulator
chronic hip pain
frequent falls, suspected orthostatic hypotension vs. parkinsons
from [facility] after unwitnessed fall back wards, with head strike
pt is in a c collar which was only placed after the fall
he apaprently has some baseline confusion and moans a lot
pt was just hosptialized here for hip pain and had some issues with his blood sguars but was discharged to [facility] due to frequent falls
he has a HISTORY OF A SPINAL CORD INJURY C2/C3 AND SPINAL FUSION C3-T1 previously without significant deficits
HE DOES NOT HAVE HISTORY OF A C2 FRACTURE
moving all extremities
aware he is in the hospital
able to answer questions
says his pain is R lower back/hip region
no cp, sob
Past History
Past History
ED Past Medical History: HTN, IDDM, Other (2006: Spinal cord injury, fall during hypoglycemic episode, fracture C spine, paralyzed for short time, had to learn to walk again. Vitrectomy, kidney disease, hepatitis,) and Other (Hernia,)
ED Past Surgical History: Other (hand surgery, c spine fusion, lumbar laminectomy)
Social History
Tobacco: Former smoker
Alcohol: Daily ( wine 1 glass and Martini 1 glass)
Drug: None
Personal:
Living: with family
Review of Systems
Review of Systems
Allergies reviewed?: Yes
All Other Systems: Not applicable
Phy Exam
Physical Exam
Physical Exam:
GENERAL: Alert moaning, moving his legs and very antsy
HEAD: NCAT
NECK: IN C COLLAR
EYE: pupils equal and reactive, EOMs intact.
ENT: o/p clr, mmm. no hemotympanum
CARDIAC: Regular rate and rhythm, no edema
LUNGS: Clear breath sounds bilaterally, no acute respiratory distress, no wheezes/rales/rhonchi
ABDOMEN: Soft, without focal tenderness, no r/g, no cvat
NEUROLOGICAL: Alert and oriented x 2, no focal neuro deficits, CN intact, 5/5 strength, sensation intact
SKIN: Warm and dry,
MUSCULOSKELETAL: No edema, well perfused.
posterior R hip mild tendenress
moving hips normally, flexed and moving them in the stretcher
back; NO bruising
no midline tendenress
normal ROM/sensation
PSYCH: moaning in pain but able to answer questions
Course
Orders/Labs/Results
Orders:
Orders
12/19/24 01:04
HYDROmorphone [Dilaudid] 1 mg .ROUTE .STK-MED ONE
12/19/24 01:08
HYDROmorphone [Dilaudid] 1 mg IV NOW STA
12/19/24 01:11
CT Cervical Spine W/o Iv Contr Urgent
Comment:
Reason For Exam: fall in c collar
CT Head W/o Iv Contrast Urgent
Comment:
Reason For Exam: fall
12/19/24 01:15
Complete Blood Count/With Diff Urgent
Comprehensive Metabolic Panel Urgent
12/19/24 01:17
CT Lumbar Spine W/o Iv Contras Urgent
Comment:
Reason For Exam: fall
CT Pelvis W/o Iv Contrast Urgent
Comment:
Reason For Exam: fall lower back pain
12/19/24 01:40
diazePAM [Valium Injection] 2 mg IV NOW STA
12/19/24 03:43
CT Neck Angio W/wo Iv Contrast Urgent
Comment:
Reason For Exam: new c2 fx, requested by nsg
Abnormal Lab Results
12/19/24
01:15
RBC 3.63 L 10^6/uL
(4.70-6.10)
Hgb 11.8 L g/dL
(13.0-18.0)
Hct 34.3 L %
(39.0-52.0)
MCV 94.5 H fL
(80.0-94.0)
MCH 32.5 H pg
(27.0-31.0)
Absolute Lymphs (auto) 1.1 L 10^3/uL
(1.2-3.4)
Immature Gran % 0.8 H %
(0-0.5)
Monocytes % 11.2 H %
(1.7-9.3)
Sodium 134 L mmol/L
(135-145)
Carbon Dioxide 19 L mmol/L
(22-30)
BUN 29 H mg/dl
(9-20)
Creatinine 1.7 H mg/dL
(0.7-1.3)
Glucose 284 H mg/dl
(70-99)
Alkaline Phosphatase 171 H U/L
(38-126)
12/19/24 01:15
12/19/24 01:15
Vital Signs
Initial and Last Documented VS:
Initial Vital Signs
Temp Pulse Resp BP Pulse Ox
36.5 C 101 20 122/72 99
12/19/24 00:45 12/19/24 00:45 12/19/24 00:45 12/19/24 00:45 12/19/24 00:45
Last Documented Vital Signs
Temp Pulse Resp BP Pulse Ox
36.5 C 101 20 157/89 98
12/19/24 00:45 12/19/24 00:45 12/19/24 00:45 12/19/24 03:00 12/19/24 05:30
MDM/Problems Addressed
Differential Diagnosis Includes:
hip farcture, pelvic fx, back fracture, head injruy
MDM/Problems Addressed:
79 y/o M
from [facility]
history of frequent falls, chronic back pain, chronic hip pain
here with R posterior hip and lower back pain after unwtinessed fall
[facility] called emergency alert and the RN from [facility] mentioned pt had history of a c2 fractuer but there is no documentation to prove this
pt was placed in collar for trnasport which remained in place here
he is moaning but redirectable
seems to have pain lower back
i asked the RN on the floor who didn't know him but other RNs say he moans all the time and that this is not new behavior
he has no signs trauam upper back/lower back
spine stimulator in place
pt had imaging of his neck/head
the head was neg
the neck was reported from me and from the instructor adjunct pharmacy technician to the radiologist that pt had history of c2 fracture but this was based on verbal report
so intiially the radiologist commented on a displaced c2 fracture being chroinc based on history
and that he had an acute lumbar fracture
i spoke with dr. multani [facility] [facility] and she was able to see his lumbar fx was old based on imaging from withint he past few days to few weeks ago
when i reviewed old imagign regaridng the c2 fracture, iw as unable to see any imaging saying pt had chronic c2 FX
then spoke with dr. multani again who reviewed images
recommended CTA to be sure no vascular injury
if not then wear hard collar and f/u
she was infomred cta was neg
i spoke with dr. florian the rehab attending who accepte back to [facility]
i spoke with on the phone
she was able to reitorate that he has had this moaning frequently for quite some time
hard collar
*Pulse Oximetry
SaO2: 98
Oxygen Mode of Delivery: Room air
Patient hypoxic: no (98)
*Critical Care Note
Total Time (30-74mins, 75-104mins- exclusive of procedures): Not Applicable
ED Attending Note
-
Portions of this chart may have been created with voice recognition software.� Occasional wrong word or��sound alike� substitutions may have occurred due to the inherent limitations of voice recognition software.
Discharge Plan
Departure
Patient Disposition: Acute Rehab Facility
Date of Disposition: 12/19/24
Time of Disposition: 05:03
Patient with high blood pressure during this ER visit?: No
Condition: Fair
Covid-19: Not Applicable
Discharge Problem:
C2 cervical fracture
Instructions: Neck fracture
Prescriptions:
No Action
atorvastatin 10 MG tablet
10 mg PO DAILY
albuterol sulfate 1 PUFF HFA aerosol inhaler
2 puff inhalation R Q4HPRN PRN (Reason: SOB)
tramadol 50 mg tablet
50 mg PO TIDPRN PRN (Reason: severe pain)
venlafaxine 37.5 mg capsule,extended release 24hr
37.5 mg PO DAILY
cyanocobalamin (vitamin B-12) 1,000 mcg tablet
1,000 mcg PO DAILY
thiamine HCl (vitamin B1) 100 mg tablet
100 mg PO DAILY
nortriptyline 10 mg capsule
10 mg PO DAILY
acetaminophen 500 mg Capsule
1,000 mg PO QID PRN (Reason: pain)
verapamil 40 mg Tablet
40 mg PO TID Qty: 0 0RF
polyethylene glycol 3350 17 gram Powder In Packet
17 g PO DAILY Qty: 0 0RF
Insulin Glargine Lantus [Lantus] 15 UNITS
Subcutaneous Insulin Syringe [Syringe-Insulin] 0 UNIT
As Directed mls/hr SC DAILY
Ordered By: Talib Solano DO
Last Taken: Unknown
sennosides-docusate sodium [Senna Plus] 8.6-50 mg Tablet
1 tab PO BID Qty: 0 0RF
insulin aspart U-100 100 unit/mL (3 mL) Insulin Pen
4 unit SC AC Qty: 0 0RF
multivitamin with folic acid [Tab-A-Merrill] 400 mcg Tablet
1 tab PO DAILY Qty: 0 0RF
Referrals:
Finesse Mccullough, [Family Provider, Family Practice]
Sanna Multani MD [Active, Neurosurgery] - Follow up in 1 week
Activity Restrictions/Additional Instructions:
Braxton has a cervical fracture, C2 and is placed in a c-collar. He needs to keep this collar on at all times. He needs to be followed up by neurosurgery. I spoke with the neurosurgeon on-call Dr. Multani who said that he could follow-up either
with them or with his previous surgeon in 8 to 12 weeks. Watch for any changes in his neurovascular status. He had no new neurologic deficits. He moans quite frequently but apparently that is his baseline. His head CT was negative and his lumbar
spine CT shows a chronic fracture in L2 which was seen on MRI last week. There is nothing to do for this.
Interventions
Interventions:
*Risk Screen - Suicide Last Done: 12/19/24 00:45
*General Assessment Last Done: 12/19/24 00:45
*Neglect/Abuse Screening Last Done: 12/19/24 00:45
*ED- Fall Risk Assessment Last Done: 12/19/24 00:57
*ED COVID-19 Vaccine History Last Done: 12/19/24 00:57
*ED Influenza Vaccine History Last Done: 12/19/24 00:57
*Nursing Disposition Last Done: 12/19/24 05:30
ED-Musculoskeletal Assessment Last Done: 12/19/24 00:57
ED- Neurological Assessment Last Done: 12/19/24 00:57
ED-Skin Assessment Last Done: 12/19/24 00:57
Discharge Date and Time
Discharge Date/Time: 12/19/24 05:30
Print Language: ROMANSH
[2024-12-19 03:00] VITALS: BP 157/89
== END 2024-12-19 05:30 ==
LOC: EMR 00:40
PROVIDERS: Physician Assistant; EMERGENCY PHYSICIAN Emergency Medicine; FAMILY PHYSICIAN Family Medicine
DX: S12.100A Unspecified displaced fracture of second cervical vertebra, initial encounter for closed fracture (principal); S32.029A Unspecified fracture of second lumbar vertebra, initial encounter for closed fracture; W01.198A Fall on same level from slipping, tripping and stumbling with subsequent striking against other object, initial encounter; Y92.199 Unspecified place in other specified residential institution as the place of occurrence of the external cause; E10.9 Type 1 diabetes mellitus without complications; I10 Essential (primary) hypertension; M54.9 Dorsalgia, unspecified; M25.559 Pain in unspecified hip; G89.29 Other chronic pain; R29.6 Repeated falls; Z79.4 Long term (current) use of insulin; Z96.82 Presence of neurostimulator; Z87.891 Personal history of nicotine dependence
CPT/HCPCS: 99284; 96374; 96375; 70450; 70498; 72125; 72131; 72192; 80053; 85025; Q9967

== ENCOUNTER 2024-12-30 11:44 | Emergency (ER) | payer MEDICARE, SELFPAY ==
[2024-12-30 11:46] VITALS: BMI 23.6
[2024-12-30 11:48] VITALS: BP 182/76
[2024-12-30 12:43] LABS: Glucose - Point of Care 139 mg/dl (70-99)
[2024-12-30 13:39] LABS: Urine Character Clear (Clear)
[2024-12-30 13:53] LABS: Urine Urothelial Cell 0-2 /LPF (FEW)
[2024-12-30 13:54] LABS: Urine Red Blood Cell 0-2 /HPF (0-2); Urine White Cell 0-2 /HPF (0-5)
[2024-12-30 14:00] VITALS: BP 167/85
[2024-12-30] MEDS: NOVOLOG vial 4 UNITS SC (14:09)
--- NOTE | 2024-12-30 14:51 | ED.GENMED ---
History of Present Illness
General
Chief Complaint: Psychiatric Problem
Source: patient and spouse
Exam Limitations: none
Time Seen by Provider: 12/30/24 12:42
History of Present Illness
History of Present Illness:
Note:
CHIEF COMPLAINT(S)
The patient has been experiencing recurrent falls and confusion, with concerns regarding potential orthostatic hypotension and complications from possible Parkinsonism.
HISTORY OF PRESENT ILLNESS
The patient is a 79-year-old male with a significant past medical history, including a recent fall resulting in two fractured vertebrae and a clavicle fracture on November 26. He has been experiencing recurrent falls, and his spouse reports that his
blood pressure drops significantly when standing, indicative of orthostatic hypotension. Approximately one year ago, the patient began experiencing symptoms that led to evaluations at multiple hospitals, with initial concerns for epilepsy and
eventually suspicion of Parkinsonism or normal pressure hydrocephalus (NPH). However, a clear diagnosis has not been confirmed as evaluations are ongoing. Treatment trials with different medications have been pursued, yet his condition has not been
stable. Recently, inquiry into medication suitability is ongoing with Dr. Bhatia proposing a medication trial to address symptoms. The patient remains frustrated with recurrent falls and current symptoms.
ADDITIONAL HISTORY OBTAINED FROM SOURCES OTHER THAN THE PATIENT
The patient�s spouse provided additional history, emphasizing the patients resistance to having people touch him and indicating ongoing concerns about his orthopedic and neurological condition.
EXTERNAL RECORDS REVIEWED
Test results previously reviewed included an MRI of the brain which visualized the ventricles. A lumbar puncture and repeat CT scan were discussed as potentially needed for further clarification, but definitive results are pending.
CHRONIC MEDICAL CONDITIONS SIGNIFICANTLY AFFECTING CARE
The patient has been undergoing investigations for Parkinsonism, possibly related to normal pressure hydrocephalus. He has become wary of potential overstimulation from care interactions.
REVIEW OF SYSTEMS
- Neurologic: Recurrent falls, confusion.
- Musculoskeletal: Recent fractures of vertebrae and clavicle.
- Cardiovascular: Orthostatic dizziness reported, with significant blood pressure drops upon standing.
PHYSICAL EXAM
General: Eating without apparent difficulty, alert and cooperative.
Skin: Warm and dry.
Head: Normocephalic, atraumatic.
Eye, Ears, Nose, Mouth, and Throat: Pupils were equal, round, and reactive to light. Oral mucosa moist.
Cardiovascular: Clear heart sounds, no murmur detected, normal peripheral perfusion, no edema in lower extremities.
Respiratory: Clear lungs, respirations non-labored.
Neurological: No focal neurological deficits.
Psychiatric: Cooperative, appropriate mood and affect, though frustrated.
PROBLEM LIST
Acute:
- Fall with resulting fracture of clavicle and vertebrae.
- Orthostatic hypotension.
- Confusion.
PLAN
1. Obtain a urine sample to rule out urinary tract infection contributing to symptoms.
2. Review labs conducted this morning for any significant findings.
3. Consider further neurological evaluation, possibly involving specialists when discharged.
4. Manage blood pressure carefully and address orthostatic hypotension specifically.
5. Discuss with the primary care provider or neurologist regarding medication adjustment or trials for suspected Parkinsonism symptoms.
DIFFERENTIAL DIAGNOSIS
The Differential Diagnosis includes, in no particular order and is not limited to:
- Parkinsons Disease
- Normal Pressure Hydrocephalus
- Orthostatic Hypotension
- Urinary Tract Infection
- Cervical Vertebral Fracture Complications
- Medication Side Effects
- Neurodegenerative Disorder
- Central Nervous System Infection or Lesion
- Orthopedic Injury or Complication
- Cognitive Impairment Related to Progressive Neurological Disease
Disposition:
SUMMARY OF ENCOUNTER
The patient, a 79-year-old male, presented to the emergency department after becoming agitated during physical therapy. He expressed frustration about the prolonged duration of his physical therapy and anticipated being discharged today. Upon
arrival, the patient was calm, eating lunch, and watching TV. Given his stable condition, a plan for discharge was discussed.
INDEPENDENT REVIEW OF LABS AND INTERPRETATION OF TESTS
- My independent review of the CBC indicates a white blood cell count of 3.7 and hemoglobin of 10.6.
- My independent review of chemistries shows a creatinine level of 1.7, which is chronic and at baseline.
- My independent review of urinalysis from this visit is normal.
PLAN
The patient is deemed safe for discharge, with a follow-up back to physical therapy planned for tomorrow.
FOLLOW-UP INSTRUCTIONS
Please call the office immediately to schedule a follow-up visit tomorrow with physical therapy to continue ongoing post-fall management and evaluation.
MEDICAL DECISION MAKING
1. Number and Complexity of Problems Addressed: Chronic conditions affecting care include a history of recurrent falls and possible Parkinsonism. Differential diagnosis includes Parkinsons Disease, normal pressure hydrocephalus, orthostatic
hypotension, medication side effects, and progressively deteriorating neurological conditions.
2. Data:
- Category 1: Review of this visits labs, including CBC and chemistries.
- Category 2: Additional history was obtained from the patients spouse, indicating resistance to touch and ongoing orthopedic and neurological concerns.
3. Risk: Given the chronic condition and monitoring needs, discharge was determined to be safe with a planned follow-up. Prescription medication was considered.
DIAGNOSIS
- Orthostatic Hypotension, IDC-10 Code: I95.1
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
- Chronic Renal Insufficiency, IDC-10 Code: N18.9
- aggresssive behavior, resolved
Past History
Past History
ED Past Medical History: HTN, IDDM, Other (2006: Spinal cord injury, fall during hypoglycemic episode, fracture C spine, paralyzed for short time, had to learn to walk again. Vitrectomy, kidney disease, hepatitis,) and Other (Hernia,)
ED Past Surgical History: Other (hand surgery, c spine fusion, lumbar laminectomy)
Social History
Tobacco: Former smoker
Alcohol: Daily ( wine 1 glass and Martini 1 glass)
Drug: None
Personal:
Living: with family
Phy Exam
Physical Exam
Physical Exam:
.
Course
Orders/Labs/Results
Orders:
Orders
12/30/24 13:25
Urinalysis Reflex To Culture Urgent
Date Specimen was Collected: 12/30/24
Time Specimen was Collected: 13:20
Urine Microscopic Reflex Cult Urgent
12/30/24 14:02
Insulin Aspart [NOVOLOG vial] 4 units SC NOW STA
Abnormal Lab Results
12/30/24 12/30/24
12:41 13:25
Urine Bacteria (Reflex) Few A
(Negative)
Urine Albumin (Reflex) 3+ A
(Neg - Trace)
POC Glucose 139 H mg/dl
(70-99)
12/30/24 12:43
12/30/24 12:43
Vital Signs
Initial and Last Documented VS:
Initial Vital Signs
Temp Pulse Resp BP Pulse Ox
97.8 F 78 16 182/76 99
12/30/24 11:48 12/30/24 11:48 12/30/24 11:48 12/30/24 11:48 12/30/24 11:48
Last Documented Vital Signs
Temp Pulse Resp BP Pulse Ox
97.8 F 75 18 167/85 98
12/30/24 11:48 12/30/24 14:00 12/30/24 14:00 12/30/24 14:00 12/30/24 14:00
*Pulse Oximetry
SaO2: 98
Oxygen Mode of Delivery: Room air
Patient hypoxic: no
*Critical Care Note
Total Time (30-74mins, 75-104mins- exclusive of procedures): Not Applicable
ED Attending Note
-
Portions of this chart may have been created with voice recognition software.� Occasional wrong word or��sound alike� substitutions may have occurred due to the inherent limitations of voice recognition software.
Discharge Plan
Departure
Patient Disposition: Home (Routine Discharge)
Date of Disposition: 12/30/24
Time of Disposition: 14:51
Patient with high blood pressure during this ER visit?: Yes
Discharge Problem:
Behavior disturbance
Instructions: BLOOD PRESSURE
Prescriptions:
No Action
atorvastatin 10 MG tablet
10 mg PO HS
tramadol 50 mg tablet
50 mg PO TIDPRN PRN (Reason: severe pain)
venlafaxine 37.5 mg capsule,extended release 24hr
37.5 mg PO DAILY
cyanocobalamin (vitamin B-12) 1,000 mcg tablet
500 mcg PO DAILY
thiamine HCl (vitamin B1) 100 mg tablet
100 mg PO DAILY
acetaminophen 500 mg Capsule
1,000 mg PO TID
nifedipine [Procardia XL] 30 mg Tablet Extended Release 24hr
30 mg PO QPM
sennosides [senna] 8.6 mg Tablet
17.2 mg PO NOON
trazodone 50 mg Tablet
25 mg PO HSPRN PRN (Reason: SLEEP)
trazodone 50 mg Tablet
50 mg PO HS
trazodone 50 mg Tablet
25 mg PO DAILY@1500
Theragen Tablet
1 tab PO DAILY
bisacodyl [Dulcolax (bisacodyl)] 10 mg Suppository
10 mg TX DAILYPRN PRN (Reason: IF NO BM WITH ORAL DULCOLAX)
docusate sodium [Colace] 100 mg Capsule
100 mg PO BID
bisacodyl [Dulcolax (bisacodyl)] 5 mg Tablet,Delayed Release (Dr/Ec)
10 mg PO DAILYPRN PRN (Reason: CONSTIPATION)
enoxaparin [Lovenox] 30 mg/0.3 mL Syringe
30 mg SC QPM
midodrine 10 mg Tablet
10 mg PO BID
insulin glargine [Lantus Solostar U-100 Insulin] 100 unit/mL (3 mL) Insulin Pen
15 unit SC DAILY
melatonin 5 mg Tablet
5 mg PO HS
polyethylene glycol 3350 17 gram powder in packet
17 g PO DAILY
sennosides-docusate sodium [Senna Plus] 8.6-50 mg tablet
1 tab PO BID
insulin aspart U-100 100 unit/mL (3 mL) insulin pen
4 unit SC AC
Referrals:
Finesse Mccullough DO [Family Provider, [facility]]
Activity Restrictions/Additional Instructions:
Agitation
Aggressive behavior
Please refrain from aggressive behavior while performing physical therapy. Return immediately for chest pain, shortness of breath, weakness or any other concerns.
Interventions
Interventions:
*Risk Screen - Suicide Last Done: 12/30/24 11:48
*General Assessment Last Done: 12/30/24 11:48
*Neglect/Abuse Screening Last Done: 12/30/24 11:48
*ED- Fall Risk Assessment Last Done: 12/30/24 11:52
*ED COVID-19 Vaccine History Last Done: 12/30/24 11:52
*ED Influenza Vaccine History Last Done: 12/30/24 11:52
ED-Psychological Assessment Last Done: 12/30/24 12:04
Discharge Date and Time
Print Language: ROMANSH
== END 2024-12-30 15:05 | disposition home or self-care (01) ==
LOC: EMR 11:44
PROVIDERS: EMERGENCY PHYSICIAN Emergency Medicine; FAMILY PHYSICIAN Family Medicine
DX: F91.9 Conduct disorder, unspecified (principal); R41.0 Disorientation, unspecified; I95.1 Orthostatic hypotension; G20.C Parkinsonism, unspecified; I12.9 Hypertensive chronic kidney disease with stage 1 through stage 4 chronic kidney disease, or unspecified chronic kidney disease; E11.22 Type 2 diabetes mellitus with diabetic chronic kidney disease; N18.9 Chronic kidney disease, unspecified; Z87.891 Personal history of nicotine dependence; Z98.1 Arthrodesis status
CPT/HCPCS: 99282; 96372; 81003; 81015; 82962